=== PATIENT | male | born 1965 | race Caucasian/White ===

== ENCOUNTER 2017-10-04 11:10 | Inpatient (IN) | payer SELFPAY ==
[2017-10-04] VITALS (43 sets, daily range): BP systolic 171–276; BP diastolic 74–158; PULSE 74–128; RESP 3–40; TEMP 98.2–98.6; O2SAT 94–97
[~2017-10-04] VITALS: Ht 180.3 cm; Wt 155.5 kg
[2017-10-04 11:58] LABS: AUTOMATED NEUTROPHIL # 6.8 TH/MM3 (1.8-7.7); BASOPHIL # 0.3 TH/MM3 (0-0.2); BASOPHIL % 3.3 % (0.0-2.0); EOSINOPHIL # 0.1 TH/MM3 (0-0.4); EOSINOPHIL % 1.4 % (0.0-4.0); HEMATOCRIT 49.5 % (39.0-51.0); HEMOGLOBIN 16.2 GM/DL (13.0-17.0); LYMPH % 23.2 % (9.0-44.0); LYMPHOCYTE # 2.4 TH/MM3 (1.0-4.8); MEAN CELL VOLUME 85.8 FL (80.0-100.0); MEAN CORPUSCULAR HEMOGLOBIN 28.1 PG (27.0-34.0); MEAN CORPUSCULAR HGB CONC 32.8 % (32.0-36.0); MEAN PLATELET VOLUME 10.2 FL (7.0-11.0); MONO % 7.1 % (0.0-8.0); MONOCYTE # 0.7 TH/MM3 (0-0.9); PLATELET COUNT 232 TH/MM3 (150-450); RED BLOOD COUNT 5.78 MIL/MM3 (4.50-5.90); RED CELL DISTRIBUTION WIDTH 13.3 % (11.6-17.2); WHITE BLOOD COUNT 10.3 TH/MM3 (4.0-11.0)
[2017-10-04] MEDS ORDERED: SODIUM CHLORIDE 0.9% FLUSH 10 ML FLUSH IVF PRN (12:00)
[2017-10-04] MEDS ORDERED: niCARdipine INJ 25 MG in SODIUM CHLOR 0.9% 250 ML INJ 250 ML IV ONE (12:00)
[2017-10-04 12:11] LABS: CHLORIDE 103 MEQ/L (98-107); SODIUM (NA) 139 MEQ/L (136-145)
[2017-10-04 12:14] LABS: CALCIUM 9.1 MG/DL (8.5-10.1)
[2017-10-04 12:15] LABS: BICARBONATE 27.8 MEQ/L (21.0-32.0); BLOOD UREA NITROGEN 17 MG/DL (7-18); GLUCOSE,RANDOM 99 MG/DL (74-106); PROTHROMBIN TIME - PATIENT 10.1 SEC (9.8-11.6)
[2017-10-04 12:18] LABS: ALT (GPT) 28 U/L (12-78); AST (GOT) 23 U/L (15-37); GLOMERULAR FILTRATION RATE 79 ML/MIN (>89)
[2017-10-04 12:19] LABS: TOTAL BILIRUBIN ADULT 0.5 MG/DL (0.2-1.0); TOTAL PROTEIN 8.8 GM/DL (6.4-8.2)
[2017-10-04 12:21] LABS: ALKALINE PHOSPHATASE 80 U/L (45-117)
--- NOTE | 2017-10-04 12:59 | RADRPT ---
EXAM DATE: 10/04/2017 12:53 PM EDT AGE/SEX: 52 years / Male INDICATIONS: Difficulty speaking, now resolved. CLINICAL DATA: This is the patient's initial encounter. Patient reports that signs and symptoms have been present for 1 day and indicates a pain score of 0/10. MEDICAL/SURGICAL HISTORY: None. None. RADIATION DOSE: 60.70 CTDI (mGy) COMPARISON: No prior exams available for comparison. TECHNIQUE: CT of the head without contrast. Using automated exposure control and adjustment of the mA and/or kV according to patient size, radiation dose was kept as low as reasonably achievable to ob tain optimal diagnostic quality images. FINDINGS: Cerebrum: There is mild generalized atrophy and ventricles are normal given the degree of atrophy. M ild periventricular white matter change is present. There is an old lacunar in the region of the righ t caudate. No midline shift, mass lesion, hemorrhage or acute infarction. No extraaxial fluid collec tions are seen. Posterior Fossa: The cerebellum and brainstem demonstrate no acute abnormality. The 4th ventricle is midline. The cerebellopontine angle is within normal limits. Extracranial: The visualized sinuses are clear. Skull: The calvaria is intact. No skull fracture. CONCLUSION: 1. No acute intracranial abnormality is identified. 2. Chronic findings include mild atrophy and periventricular white matter change characteristic of c hronic microvascular ischemia. Additionally, there is an old lacune in the region of the right caudat e. Electronically signed by: Jassi Gallo MD 10/04/2017 12:57 PM EDT
[2017-10-04] MEDS ORDERED: MAGNESIUM HYDROXIDE SUSP 30 ML CUP PO PRN (13:15)
[2017-10-04] MEDS ORDERED: ONDANSETRON HCL 4 MG/2 ML VIAL IV PUSH PRN (13:15)
[2017-10-04] MEDS ORDERED: CHLORHEXIDINE GLUCONATE 2 % 1 PACK (2 CLOTHS) TOP PRN (13:15)
[2017-10-04] MEDS ORDERED: NURSING INFORMATION XX SCH (13:15)
[2017-10-04] MEDS ORDERED: LACTULOSE SYRUP 20 GM/30 ML CUP PO PRN (13:15)
[2017-10-04] MEDS ORDERED: BISACODYL 10 MG SUPP RECTAL PRN (13:15)
[2017-10-04] MEDS ORDERED: RESP: ALBUTEROL 2.5 MG/3 ML NEB (PRN) INH (13:15)
[2017-10-04] MEDS ORDERED: ACETAMINOPHEN 325 MG TAB PO PRN (13:15)
[2017-10-04] MEDS ORDERED: SODIUM CHLORIDE 0.9% FLUSH 10 ML FLUSH IV FLUSH PRN ×2 (13:15→13:30)
[2017-10-04] MEDS ORDERED: SENNOSIDES 8.6 MG TAB PO PRN (13:15)
--- NOTE | 2017-10-04 13:15 | PD ---
HPI Chief Complaint: Neuro Symptoms/ Deficits Time Seen by Provider: 11:35 Travel History International Travel<30 days: No Contact w/Intl Traveler<30days: No Traveled to known affect area: No History of Present Illness HPI Is a 58-year-old male presents to the emergency department because he states that approximately 1010 this morning he started feeling funny and states that he had trouble pronouncing words that started with a CORA. He states he felt like his tongue could not get to the front of his teeth. Denies any trouble with aphasia, or word finding. No numbness tingling weakness or other symptoms. Otherwise had been feeling generally well and healthy. No history of TIA in the past. Is treated for high blood pressure. Symptoms resolved shortly after onset. No other complaints. History Past Medical History Narrative Medical Hypertension Asthma Tetanus Vaccination: > 5 Years Influenza Vaccination: No Past Surgical History Surgical History: No Previous Surgery Social History Alcohol Use: No Tobacco Use: No Allergies-Medications (Allergen,Severity, Reaction): Coded Allergies: No Known Allergies (Unverified , 10/04/17) Reported Meds & Prescriptions Reported Meds & Active Scripts Active No Active Prescriptions or Reported Medications Review of Systems Except as stated in HPI: all other systems reviewed are Neg Physical Exam Narrative GENERAL: Well-appearing 52-year-old man, no acute distress. SKIN: Focused skin assessment warm/dry. HEAD: Atraumatic. Normocephalic. EYES: Pupils equal and round. No scleral icterus. No injection or drainage. ENT: No nasal bleeding or discharge. Mucous membranes pink and moist. NECK: Trachea midline. No JVD. CARDIOVASCULAR: Regular rate and rhythm. No murmur appreciated. RESPIRATORY: No accessory muscle use. Clear to auscultation. Breath sounds equal bilaterally. GASTROINTESTINAL: Abdomen soft, non-tender, nondistended. Hepatic and splenic margins not palpable. MUSCULOSKELETAL: No obvious deformities. No clubbing. No cyanosis. No edema. NEUROLOGICAL: Awake and alert. Clear nerves II through XII are intact. Tongue strength appears normal when I had him push it into his cheek on each side. It is midline with protrusion. I do not appreciate any dysarthria or aphasia on my exam. Patient subjectively states he felt like the symptoms returned when he got to the emergency department. Patient does have a little bit of visual field loss in his left eye only in the nasal superior quadrant. 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 Strength is full and equal upper and lower extremities. No pronator drift or lower extremity drift. Sensation is intact to light touch. PSYCHIATRIC: Appropriate mood and affect; insight and judgment normal. Data Data Last Documented VS Vital Signs Date Time Temp Pulse Resp B/P (MAP) Pulse Ox O2 Delivery O2 Flow Rate FiO2 10/04/17 12:45 249/111 (157) 10/04/17 12:30 110 18 97 10/04/17 11:49 Room Air 10/04/17 11:26 98.2 Orders Orders Electrocardiogram (10/04/17 11:46) Prothrombin Time / Inr (Pt) (10/04/17 11:46) Act Partial Throm Time (Ptt) (10/04/17 11:46) Complete Blood Count With Diff (10/04/17 11:46) Comprehensive Metabolic Panel (10/04/17 11:46) Ct Brain W/O Iv Contrast(Rout) (10/04/17 11:46) Ecg Monitoring (10/04/17 11:46) Iv Access Insert/Monitor (10/04/17 11:46) Oximetry (10/04/17 11:46) Sodium Chloride 0.9% Flush (Ns Flush) (10/04/17 12:00) Nicardipine Inj (Cardene Inj) (10/04/17 12:00) Labs Laboratory Tests Test 10/04/17 11:50 White Blood Count 10.3 TH/MM3 Red Blood Count 5.78 MIL/MM3 Hemoglobin 16.2 GM/DL Hematocrit 49.5 % Mean Corpuscular Volume 85.8 FL Mean Corpuscular Hemoglobin 28.1 PG Mean Corpuscular Hemoglobin Concent 32.8 % Red Cell Distribution Width 13.3 % Platelet Count 232 TH/MM3 Mean Platelet Volume 10.2 FL Neutrophils (%) (Auto) 65.0 % Lymphocytes (%) (Auto) 23.2 % Monocytes (%) (Auto) 7.1 % Eosinophils (%) (Auto) 1.4 % Basophils (%) (Auto) 3.3 % Neutrophils # (Auto) 6.8 TH/MM3 Lymphocytes # (Auto) 2.4 TH/MM3 Monocytes # (Auto) 0.7 TH/MM3 Eosinophils # (Auto) 0.1 TH/MM3 Basophils # (Auto) 0.3 TH/MM3 CBC Comment DIFF FINAL Differential Comment Prothrombin Time 10.1 SEC Prothromb Time International Ratio 1.0 RATIO Activated Partial Thromboplast Time 28.1 SEC Blood Urea Nitrogen 17 MG/DL Creatinine 1.00 MG/DL Random Glucose 99 MG/DL Total Protein 8.8 GM/DL Albumin 4.0 GM/DL Calcium Level 9.1 MG/DL Alkaline Phosphatase 80 U/L Aspartate Amino Transf (AST/SGOT) 23 U/L Alanine Aminotransferase (ALT/SGPT) 28 U/L Total Bilirubin 0.5 MG/DL Sodium Level 139 MEQ/L Potassium Level 3.8 MEQ/L Chloride Level 103 MEQ/L Carbon Dioxide Level 27.8 MEQ/L Anion Gap 8 MEQ/L Estimat Glomerular Filtration Rate 79 ML/MIN [facility] Medical Decision Making Medical Screen Exam Complete: Yes Emergency Medical Condition: Yes Interpretation(s) My review of EKG: Sinus tachycardia rate of 109, leftward axis, right bundle branch block, no acute ischemia. LABS: CBC is unremarkable CMP is unremarkable. Coags are unremarkable. Head CT no acute intracranial abnormality. Chronic mild atrophy and periventricular white matter changes. Old lacunar in the right caudate. Differential Diagnosis Hypertensive encephalopathy, progress, bleed, stroke, TIA, other Narrative Course Medical decision making by the 52-year-old male presents emerged department what appears to be hypertensive crisis. Some intermittent subjective speech changes however I do not hear any abnormalities with his articulation or aphasia or other neurologic symptoms. NIH 0 so was not called as a stroke alert. We did get a CT scan of his head and started him on nicardipine. His EKG does not show any ischemic changes. We will plan on admission to the ICU for hypertensive emergency. Physician Communication Physician Communication Spoke with Dr. Child, with critical care medicine, will admit patient. Diagnosis Primary Impression: Hypertensive emergency Admitting Information Admitting Physician Requests: Admit Scripts No Active Prescriptions or Reported Meds Wu Peterson MD Oct 04, 2017 13:15
[2017-10-04] MEDS ORDERED: GLUCAGON 1 MG/ML VIAL OTHER PRN ×2 (13:30)
[2017-10-04] MEDS ORDERED: SODIUM PHOSPHATE INJ 30 MMOL in SODIUM CHLOR 0.9% 250 ML INJ 240 ML IV PRN (13:30)
[2017-10-04] MEDS ORDERED: MAGNESIUM SULFATE INJ 2 GM in SODIUM CHLORIDE 0.9% INJ 96 ML IV PRN (13:30)
[2017-10-04] MEDS ORDERED: POTASSIUM CHLORIDE 25 MEQ EFFERVESCENT TAB PO PRN (13:30)
[2017-10-04] MEDS ORDERED: POTASSIUM PHOSPHATE INJ 30 MMOL in SODIUM CHLOR 0.9% 250 ML INJ 250 ML IV PRN (13:30)
[2017-10-04] MEDS ORDERED: DEXTROSE 50% IN WATER 50 ML VIAL(D50) IV PUSH PRN (13:30)
[2017-10-04] MEDS ORDERED: MAGNESIUM SULFATE INJ 4 GM in SODIUM CHLORIDE 0.9% INJ 92 ML IV PRN (13:30)
[2017-10-04] MEDS ORDERED: POTASSIUM PHOSPHATE MONOBASIC 500 MG TAB PO PRN (13:30)
[2017-10-04] MEDS ORDERED: MAGNESIUM OXIDE 400 MG TAB PO PRN (13:30)
[2017-10-04] MEDS ORDERED: POTASSIUM CHLOR 40 MEQ PREMIX 100 ML IV PRN ×2 (13:30)
[2017-10-04] MEDS ORDERED: POTASSIUM CHLOR 20 MEQ PREMIX 100 ML IV PRN ×2 (13:30)
[2017-10-04] MEDS ORDERED: POTASSIUM PHOSPHATE MONOBASIC 500 MG TAB PO/TUBE PRN (13:30)
--- NOTE | 2017-10-04 14:09 | HHI.HP ---
[facility] Service Critical Care Medicine Primary Care Physician No Primary Care Physician Admission Diagnosis Hypertensive emergency Diagnosis: (1) Hypertensive emergency Diagnosis: Principal (2) Cerebrovascular accident, old Diagnosis: Secondary (3) Right bundle branch block Diagnosis: Secondary (4) Asthma, mild intermittent (5) ADDY on CPAP Diagnosis: Principal (6) BMI 45.0-49.9, adult Diagnosis: Principal Chief Complaint: Dysarthria, facial droop Travel History International Travel<30 Days: No Contact w/Intl Traveler <30 Da: No Traveled to Known Affected Are: No History of Present Illness This is a 52-year-old male. The admission 10/04/2017. Past medical history includes untreated hypertension, elevated BMI greater than 48, obstructive sleep apnea on CPAP, mild intermittent asthma. Patient has not seen a doctor/physicist 2005. He states his blood pressure last few checks has been quite elevated with diastolic blood pressure in the 120s. His CPAP machine is over 20 years old. He presents to [facility] with the following story. At approximately 1010, [place] had acute onset of dysarthria. He had difficulty pronouncing words. No focal weakness including headache, vision changes, focal weakness or neuropathy. Denies any recent head trauma or surgeries. CT the brain revealed old right caudate lacunar CVA. Baseline laboratories were essentially within normal limits including BMP and CBC. Troponin is currently pending. EKG reveals sinus tachycardia rate of 110 with a right bundle branch block and a left anterior fascicular block. Troponin is currently pending NIH score was between a 0-1 throughout his ED visit Review of Systems Constitutional: COMPLAINS OF: Weight gain, DENIES: Fatigue, Fever, Weight loss Endocrine: DENIES: Polydipsia, Polyuria Eyes: DENIES: Blurred vision Ears, nose, mouth, throat: DENIES: Hearing loss, Odynophagia Respiratory: DENIES: Apneas, Shortness of breath Cardiovascular: DENIES: Chest pain, Lower Extremity Edema Gastrointestinal: DENIES: Abdominal pain, Nausea, Vomiting Musculoskeletal: DENIES: Joint pain, Back pain Integumentary: DENIES: Abnormal pigmentation Hematologic/lymphatic: DENIES: Bruising Immunologic/allergic: DENIES: Eczema Neurologic: DENIES: Abnormal gait Psychiatric: COMPLAINS OF: Anxiety, DENIES: Confusion, Depression Past Family Social History Allergies: Coded Allergies: No Known Allergies (Unverified , 6/17/18) Past Medical History Essential hypertension Elevated BMI Obstructive sleep apnea on CPAP Mild intermittent asthma Past Surgical History None Reported Medications None Active Ordered Medications Reviewed in EMR Family History Paternal grandmother and grandfather with myocardial infarction. Father with coronary disease status post stent. Mother in good health. Social History Denies tobacco, alcohol or illicit drug use Physical Exam Vital Signs Vital Signs Date Time Temp Pulse Resp B/P (MAP) Pulse Ox O2 Delivery O2 Flow Rate FiO2 10/04/17 13:53 185/94 (124) 10/04/17 13:36 120 18 193/87 (122) 96 Room Air 10/04/17 13:15 118 16 203/95 (131) 95 Room Air 10/04/17 12:45 249/111 (157) 10/04/17 12:30 110 18 249/103 (151) 97 10/04/17 12:15 263/123 (169) 10/04/17 12:02 105 276/149 10/04/17 11:49 97 Room Air 10/04/17 11:33 (192) 10/04/17 11:26 Room Air 10/04/17 11:26 98.2 114 18 276/149 (191) 97 Room Air 260/158 (192) Physical Exam GENERAL: 52-year-old male currently resting in bed in no acute distress SKIN: Warm and dry. No rash HEAD: Atraumatic. Normocephalic. EYES: Pupils equal and round about 3 mm bilaterally and reactive. No scleral icterus. No injection or drainage. ENT: No nasal bleeding or discharge. Mucous membranes pink and moist. NECK: Trachea midline. No JVD. CARDIOVASCULAR: Tachycardic, RR. S1, S2. No S4. Without murmur RESPIRATORY: Clear to auscultation. Breath sounds equal bilaterally. GASTROINTESTINAL: Abdomen soft, non-tender, obese. Hypoactive bowel sounds appreciated MUSCULOSKELETAL: Extremities with trace bilateral lower extremity edema. No obvious deformities. NEUROLOGICAL: Awake and alert. Possibly slight left-sided facial droop. Positive dysarthria. Strength is equal and symmetric bilaterally 5+ out of 5 bilateral upper and lower extremities. Normal sensation bilateral upper lower extremity. DTRs equal symmetric. Gait was not assessed. No dysdiadochokinesis. No pronator drift. Laboratory Laboratory Tests Test 10/04/17 11:50 10/04/17 13:45 White Blood Count 10.3 Red Blood Count 5.78 Hemoglobin 16.2 Hematocrit 49.5 Mean Corpuscular Volume 85.8 Mean Corpuscular Hemoglobin 28.1 Mean Corpuscular Hemoglobin Concent 32.8 Red Cell Distribution Width 13.3 Platelet Count 232 Mean Platelet Volume 10.2 Neutrophils (%) (Auto) 65.0 Lymphocytes (%) (Auto) 23.2 Monocytes (%) (Auto) 7.1 Eosinophils (%) (Auto) 1.4 Basophils (%) (Auto) 3.3 Neutrophils # (Auto) 6.8 Lymphocytes # (Auto) 2.4 Monocytes # (Auto) 0.7 Eosinophils # (Auto) 0.1 Basophils # (Auto) 0.3 CBC Comment DIFF FINAL Differential Comment Prothrombin Time 10.1 Prothromb Time International Ratio 1.0 Activated Partial Thromboplast Time 28.1 Blood Urea Nitrogen 17 Creatinine 1.00 Random Glucose 99 Total Protein 8.8 Albumin 4.0 Calcium Level 9.1 Alkaline Phosphatase 80 Aspartate Amino Transf (AST/SGOT) 23 Alanine Aminotransferase (ALT/SGPT) 28 Total Bilirubin 0.5 Sodium Level 139 Potassium Level 3.8 Chloride Level 103 Carbon Dioxide Level 27.8 Anion Gap 8 Estimat Glomerular Filtration Rate 79 Result Diagram: 10/04/17 1150 10/04/17 1150 Imaging Last Impressions Head CT 10/04/17 1146 Signed Impressions: CONCLUSION: 1. No acute intracranial abnormality is identified. 2. Chronic findings include mild atrophy and periventricular white matter evans ge characteristic of chronic microvascular ischemia. Additionally, there is an old lacune in the region of the right caudate. Septic Shock Reassessment Septic shock perfusion: reassessment completed Caprini VTE Risk Assessment Caprini VTE Risk Assessment: Mod/High Risk (score >= 2) VTE Pharm Contraindication: Documented Caprini Risk Assessment Model Point Value = 1 Point Value = 2 Point Value = 3 Point Value = 5 Age 41-60 Minor surgery BMI > 25 kg/m2 Swollen legs Varicose veins or History of unexplained or recurrent spontaneous Oral contraceptives or hormone replacement Sepsis (< 1 month) Serious lung disease, including pneumonia (< 1 month) Abnormal pulmonary function Acute myocardial infarction Congestive heart failure (< 1 month) History of inflammatory bowel disease Medical patient at bed rest Age 61-74 Arthroscopic surgery Major open surgery (> 45 min) Laparoscopic surgery (> 45 min) Malignancy Confined to bed (> 72 hours) Immobilizing plaster cast Central venous access Age >= 75 History of VTE Family history of VTE Factor V Leiden Prothrombin [id number] Lupus anticoagulant Anticardiolipin antibodies Elevated serum homocysteine Heparin-induced thrombocytopenia Other congenital or acquired thrombophilia Stroke (< 1 month) Elective arthroplasty Hip, pelvis, or leg fracture Acute spinal cord injury (< 1 month) Prophylaxis Regimen Total Risk Factor Score Risk Level Prophylaxis Regimen 0-1 Low Early ambulation 2 Moderate Order ONE of the following: *Sequential Compression Device (SCD) *Heparin 5000 units SQ BID 3-4 Higher Order ONE of the following medications: *Heparin 5000 units SQ TID *Enoxaparin/Lovenox 40 mg SQ daily (WT < 150 kg, CrCl > 30 mL/min) *Enoxaparin/Lovenox 30 mg SQ daily (WT < 150 kg, CrCl > 10-29 mL/min) *Enoxaparin/Lovenox 30 mg SQ BID (WT < 150 kg, CrCl > 30 mL/min) AND/OR *Sequential Compression Device (SCD) 5 or more Highest Order ONE of the following medications: *Heparin 5000 units SQ TID (Preferred with Epidurals) *Enoxaparin/Lovenox 40 mg SQ daily (WT < 150 kg, CrCl > 30 mL/min) *Enoxaparin/Lovenox 30 mg SQ daily (WT < 150 kg, CrCl > 10-29 mL/min) *Enoxaparin/Lovenox 30 mg SQ BID (WT < 150 kg, CrCl > 30 mL/min) AND *Sequential Compression Device (SCD) Assessment and Plan Assessment and Plan Neuro/Psych: Dysarthria with left facial droop Old right caudate lacunar CVA CT brain admission revealed old right lacunar infarct. Periventricular white matter changes/mild. Discussed with neurology see below. Given benefits and risks patient is currently wishing not to receive alteplase. MRI/A brain and carotid Dopplers ordered. Start aspirin 81 mg by mouth daily Lipid panel/hemoglobin A1c ordered Echocardiogram ordered see below CV: Hypertensive emergency Right bundle branch block Sinus tachycardia Currently on nicardipine drip 7.5 mg an hour to maintain his systolic blood pressure around 180. As needed labetalol/Nitropaste Of note, patient states he had a negative stress echocardiogram 20 years ago and his workup for gastroesophageal reflux disease EKG on admission revealed a sinus tachycardia rate in the 1 teens. Right bundle branch block. [id number]. Left anterior fascicular block. Troponin currently pending. Currently denies chest pain 2D echocardiogram has been ordered Resp: Obstructive sleep apnea Nasal cannula to maintain saturations greater than or equal to 92% Incentive spirometry while awake Patient with option to home CPAP machine. Otherwise will use hours tonight Follow up on chest x-ray GI: History of gastroesophageal reflux disease Advance diet as tolerated Pantoprazole 40 mg daily for GI prophylaxis Docusate sodium/senna 1 tablet twice daily for bowel regimen : No indication for Welch catheter Endo: Sliding scale insulin with Novulin R with Accu-Cheks before meals/at bedtime to maintain euglycemia/low regimen Check hemoglobin A1c and TSH Renal: Creatinine essentially within normal limits with GFR of 79. Monitor urine output Accurate I's and O's Heme: CBC essentially within normal limits along with coags. Recheck in a.m. ID: Monitor for signs of hematology infection MSK: PT/OT evaluate and treat FEN: Currently on normal saline at 84 cc an hour Replace electrolytes as clinically indicated per ICU electrolyte protocol Access -Utilize peripheral IV. Central line if indicated Prophylaxis -GI -pantoprazole -DVT -SCD/holding pharmacological a.m. with tighter blood pressure control in case alteplase as indicated Level 3 admission Code Status Full code Discussed Condition With Patient. Dr. Peterson/ED physician. Dr. Conde/neurology. Care plan discussed and all questions answered. Discussed with neurologist. Left facial droop could be caused by the right caudate exacerbation with hypertension. Note this appears to be very slight but friend at bedside convinced there is change. Dysarthria is new and appears to be waxing and waning. 6% chance of bleeding with TPA. Benefits and risks discussed with patient. At the present time, he wishes not to pursue alteplase at the present time due to risk of bleeding. I will complete MRI/A of brain along with carotid ultrasound. Keep systolic blood pressure around 180. Admit to the ICU. Problem Qualifiers (1) Asthma, mild intermittent: Qualified Codes: J45.20 - Mild intermittent asthma, uncomplicated Lasha Romero MD Oct 04, 2017 14:09
[2017-10-04] MEDS ORDERED: NITROGLYCERIN 2% OINT 1 GM PACKET TOPICAL PRN (14:15)
[2017-10-04] MEDS ORDERED: MORPHINE SULFATE 2 MG/ML SYRINGE IV PUSH PRN (14:45)
[2017-10-04] MEDS ORDERED: ACETAMINOPHEN/HYDROcodone 325 MG/5 MG TAB PO PRN (15:00)
[2017-10-04] MEDS: RESP: ALBUTEROL 2.5 MG/IPRATROPIUM 0.5 MG NEB (SCH) INH ×3 (15:24→23:20)
--- NOTE | 2017-10-04 15:59 | RADRPT ---
EXAM DATE: 10/04/2017 3:53 PM EDT AGE/SEX: 52 years / Male INDICATIONS: Respiratory failure and difficulty speaking. CLINICAL DATA: This is the patient's initial encounter. Patient reports that signs and symptoms have been present for 1 day and indicates a pain score of 0/10. MEDICAL/SURGICAL HISTORY: Asthma. Hyperparathyroidism. None. COMPARISON: No prior exams available for comparison. FINDINGS: A single AP view of the chest demonstrates the lungs to be symmetrically aerated without evidence of mass, infiltrate or effusion. The heart is upper limits normal size for AP portable technique. The ce ntral bronchopulmonary markings are well delineated.. Osseous structures are intact. CONCLUSION: The lungs are clear. Electronically signed by: Nato Harvey MD 10/04/2017 3:58 PM EDT
[2017-10-04] MEDS: SODIUM CHLOR 0.9% 1000 ML INJ 1,000 ML IV SCH (16:06)
[2017-10-04] MEDS ORDERED: INSULIN NovoLIN REGULAR SUPPLEMENTAL SCALE SQ SCH (17:00)
[2017-10-04] MEDS: INSULIN ASPART SUPPLEMENTAL SCALE SQ SCH ×2 (17:00→21:00)
[2017-10-04] MEDS: niCARdipine INJ 25 MG in SODIUM CHLOR 0.9% 250 ML INJ 250 ML IV PRN ×3 (17:23→23:04)
[2017-10-04] MEDS: ARTIFICIAL TEARS OPTH SOLN 15 ML BTL EACH EYE SCH (18:00)
[2017-10-04] MEDS: ATORVASTATIN 10 MG TAB PO SCH (19:56)
[2017-10-04] MEDS: DOCUSATE SODIUM 50 MG/SENNA 8.6 MG TAB PO SCH (19:56)
[2017-10-04] MEDS: SODIUM CHLORIDE 0.9% FLUSH 10 ML FLUSH IV FLUSH SCH (19:57)
[2017-10-04] MEDS: LABETALOL HCL 100 MG/20 ML VIAL IV PUSH PRN (20:07)
[2017-10-04] MEDS ORDERED: SODIUM CHLORIDE 0.9% FLUSH 10 ML FLUSH IV FLUSH SCH (21:00)
[2017-10-04] MEDS ORDERED: ASPIRIN 81 MG CHEW TAB CHEW STA (21:02)
[2017-10-04] MEDS ORDERED: CHLORHEXIDINE GLUCONATE 2 % 1 PACK (2 CLOTHS)(extra cloths) TOPICAL PRN (21:30)
[2017-10-05] VITALS (30 sets, daily range): BP systolic 160–230; BP diastolic 73–107; PULSE 56–100; RESP 7–42; TEMP 97.7–98.9; O2SAT 94–98
[2017-10-05] MEDS: CHLORHEXIDINE GLUCONATE 2 % 1 PACK (2 CLOTHS)(taper/protocol) TOPICAL SCH (04:00)
[2017-10-05] MEDS ORDERED: CHLORHEXIDINE GLUCONATE 2 % 1 PACK (2 CLOTHS) TOP SCH (04:00)
[2017-10-05] MEDS: SODIUM CHLOR 0.9% 1000 ML INJ 1,000 ML IV SCH ×3 (04:14→20:54)
[2017-10-05] MEDS: RESP: ALBUTEROL 2.5 MG/IPRATROPIUM 0.5 MG NEB (SCH) INH ×6 (04:41→23:15)
[2017-10-05 05:11] LABS: AUTOMATED NEUTROPHIL # 8.2 TH/MM3 (1.8-7.7); BASOPHIL # 0.1 TH/MM3 (0-0.2); BASOPHIL % 0.6 % (0.0-2.0); EOSINOPHIL # 0.1 TH/MM3 (0-0.4); EOSINOPHIL % 0.6 % (0.0-4.0); HEMATOCRIT 43.2 % (39.0-51.0); HEMOGLOBIN 14.2 GM/DL (13.0-17.0); LYMPH % 21.6 % (9.0-44.0); LYMPHOCYTE # 2.6 TH/MM3 (1.0-4.8); MEAN CELL VOLUME 86.2 FL (80.0-100.0); MEAN CORPUSCULAR HEMOGLOBIN 28.3 PG (27.0-34.0); MEAN CORPUSCULAR HGB CONC 32.8 % (32.0-36.0); MEAN PLATELET VOLUME 9.6 FL (7.0-11.0); MONO % 7.8 % (0.0-8.0); MONOCYTE # 0.9 TH/MM3 (0-0.9); NEUT % 69.4 % (16.0-70.0); PLATELET COUNT 206 TH/MM3 (150-450); RED BLOOD COUNT 5.02 MIL/MM3 (4.50-5.90); RED CELL DISTRIBUTION WIDTH 13.1 % (11.6-17.2); WHITE BLOOD COUNT 11.9 TH/MM3 (4.0-11.0)
[2017-10-05 05:20] LABS: CHLORIDE 107 MEQ/L (98-107); SODIUM (NA) 142 MEQ/L (136-145)
[2017-10-05 06:01] LABS: INTERNATIONAL NORMALIZED RATIO 1.1 RATIO; PROTHROMBIN TIME - PATIENT 10.7 SEC (9.8-11.6)
[2017-10-05 06:24] LABS: ALBUMIN 3.3 GM/DL (3.4-5.0); ALKALINE PHOSPHATASE 64 U/L (45-117); ALT (GPT) 24 U/L (12-78); AST (GOT) 40 U/L (15-37); BICARBONATE 25.3 MEQ/L (21.0-32.0); BLOOD UREA NITROGEN 14 MG/DL (7-18); CREATININE 0.86 MG/DL (0.60-1.30); GLOMERULAR FILTRATION RATE 94 ML/MIN (>89); GLUCOSE,RANDOM 117 MG/DL (74-106); MAGNESIUM 2.2 MG/DL (1.5-2.5); PHOSPHORUS 3.8 MG/DL (2.5-4.9); TOTAL BILIRUBIN ADULT 0.6 MG/DL (0.2-1.0); TOTAL PROTEIN 7.1 GM/DL (6.4-8.2)
--- NOTE | 2017-10-05 06:24 | HHI.CCPN ---
Subjective Remarks/Hospital Course This is a 52-year-old male. The admission 10/04/2017. Past medical history includes untreated hypertension, elevated BMI greater than 48, obstructive sleep apnea on CPAP, mild intermittent asthma. Patient has not seen a doctor/physicist 2005. He states his blood pressure last few checks has been quite elevated with diastolic blood pressure in the 120s. His CPAP machine is over 20 years old. He presents to [facility] with the following story. At approximately 1010, [place] had acute onset of dysarthria. He had difficulty pronouncing words. No focal weakness including headache, vision changes, focal weakness or neuropathy. Denies any recent head trauma or surgeries. CT the brain revealed old right caudate lacunar CVA. Baseline laboratories were essentially within normal limits including BMP and CBC. Troponin is currently pending. EKG reveals sinus tachycardia rate of 110 with a right bundle branch block and a left anterior fascicular block. Troponin is currently pending NIH score was between a 0-1 throughout his ED visit SUBJECTIVE: 10/05: Resting comfortably in bed. Continues to have tongue deviation, slight facial droop and dysarthria. Noted troponin I 0.4 late last night. Repeat pending this a.m. Denies chest pain. Off nicardipine drip. Objective Vital Signs Date Time Temp Pulse Resp B/P (MAP) Pulse Ox O2 Delivery O2 Flow Rate FiO2 10/05/17 06:00 70 10/05/17 06:00 19 197/91 (126) 10/05/17 04:00 98.8 10/05/17 00:00 94 10/04/17 20:17 21 10/04/17 15:00 Room Air Intake and Output 10/05/17 10/05/17 10/06/17 08:00 16:00 00:00 Intake Total 200 ml Output Total 400 ml Balance -200 ml Result Diagram: 10/05/17 0430 10/05/17 0430 Imaging Last Impressions Head CT 10/04/17 1146 Signed Impressions: CONCLUSION: 1. No acute intracranial abnormality is identified. 2. Chronic findings include mild atrophy and periventricular white matter evans ge characteristic of chronic microvascular ischemia. Additionally, there is an old lacune in the region of the right caudate. Chest X-Ray 10/04/17 0000 Signed Impressions: CONCLUSION: The lungs are clear. Objective Remarks GENERAL: 52-year-old male currently resting in bed in no acute distress SKIN: Warm and dry. No rash HEAD: Atraumatic. Normocephalic. EYES: Pupils equal and round about 3 mm bilaterally and reactive. No scleral icterus. No injection or drainage. ENT: No nasal bleeding or discharge. Mucous membranes pink and moist. NECK: Trachea midline. No JVD. CARDIOVASCULAR: Tachycardic, RR. S1, S2. No S4. Without murmur RESPIRATORY: Clear to auscultation. Breath sounds equal bilaterally. GASTROINTESTINAL: Abdomen soft, non-tender, obese. Hypoactive bowel sounds appreciated MUSCULOSKELETAL: Extremities with trace bilateral lower extremity edema. No obvious deformities. NEUROLOGICAL: Awake and alert. Tongue deviation to the right new. Facial droop. Right. Positive dysarthria but improved. Strength is equal and symmetric bilaterally 5+ out of 5 bilateral upper and lower extremities. Normal sensation bilateral upper lower extremity. DTRs equal symmetric. Gait was not assessed. No dysdiadochokinesis. No pronator drift. 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 Periventricular white matter changes/mild. Discussed with neurology see below. Given benefits and risks patient is currently wishing not to receive alteplase. MRI/A brain and carotid Dopplers ordered. Carotid Dopplers have been completed but not read. MRI/A brain still pending Start aspirin 81 mg by mouth daily Lipid panel/hemoglobin A1c ordered Echocardiogram ordered see below CV: Hypertensive emergency Right bundle branch block Sinus tachycardia Elevated troponin Start on metoprolol tartrate 25 mg twice daily and lisinopril 5 mg daily Aspirin 81 mg p.o. daily Atorvastatin 10 mg by mouth daily -lipid panel pending Off nicardipine drip. As needed labetalol/Nitropaste and nicardipine drip ordered Of note, patient states he had a negative stress echocardiogram 20 years ago and his workup for gastroesophageal reflux disease EKG on admission revealed a sinus tachycardia rate in the 1 teens. Right bundle branch block. [id number]. Left anterior fascicular block. Troponin initially 0.07 but now 1.4. A.m. pending. Currently denies chest pain. Repeat EKG is pending 2D echocardiogram has been ordered Cardiology consultation Resp: Obstructive sleep apnea Nasal cannula to maintain saturations greater than or equal to 92% Incentive spirometry while awake Patient with option to home CPAP machine. Otherwise will use hours tonight Follow up on chest x-ray 10/04 revealed no acute intracranial findings GI: History of gastroesophageal reflux disease Hypoalbuminemia Advance diet as tolerated Pantoprazole 40 mg daily for GI prophylaxis Docusate sodium/senna 1 tablet twice daily for bowel regimen : No indication for Welch catheter Endo: Hyperglygemia Sliding scale insulin with Novulin R with Accu-Cheks before meals/at bedtime to maintain euglycemia/low regimen Check hemoglobin A1c and TSH Renal: Creatinine essentially within normal limits with GFR of 79. Monitor urine output Accurate I's and O's Heme: Leukocytosis CBC essentially within normal limits along with coags. Recheck in a.m. ID: Monitor for signs of hematology infection MSK: PT/OT evaluate and treat FEN: Hypokalemia HypoCa+ Currently on normal saline at 84 cc an hour Replace electrolytes as clinically indicated per ICU electrolyte protocol Access -Utilize peripheral IV. Central line if indicated Prophylaxis -GI -pantoprazole -DVT -SCD/heparin subcu Level 2 follow-up Patient stable from critical care medicine standpoint. Assign care to hospitalist in AM 10/06. Lasha Romero MD Oct 05, 2017 06:24
[2017-10-05] MEDS ORDERED: niCARdipine INJ 25 MG in SODIUM CHLOR 0.9% 250 ML INJ 250 ML IV PRN (06:45)
[2017-10-05] MEDS ORDERED: PILL SPLITTER OTHER PRN (06:45)
[2017-10-05] MEDS ORDERED: POTASSIUM CHLORIDE 10 MEQ CONTROLLED RELEASE TAB PO ONE (07:00)
[2017-10-05] MEDS: INSULIN ASPART SUPPLEMENTAL SCALE SQ SCH ×4 (08:00→21:00)
[2017-10-05] MEDS: SODIUM CHLORIDE 0.9% FLUSH 10 ML FLUSH IV FLUSH SCH ×2 (08:03→20:57)
[2017-10-05] MEDS: METOPROLOL TARTRATE 25 MG TAB PO SCH ×3 (08:04→20:54)
[2017-10-05] MEDS: DOCUSATE SODIUM 50 MG/SENNA 8.6 MG TAB PO SCH ×2 (08:04→20:45)
[2017-10-05] MEDS: ASPIRIN 81 MG CHEW TAB PO SCH (08:04)
[2017-10-05] MEDS: PANTOPRAZOLE SOD 40 MG DELAYED RELEASE TAB PO SCH (08:04)
[2017-10-05] MEDS: ARTIFICIAL TEARS OPTH SOLN 15 ML BTL EACH EYE SCH ×3 (08:05→16:51)
--- NOTE | 2017-10-05 08:13 | PD.CONS ---
HPI Consult Requested By Primary Care Physician No Primary Care Physician History of Present Illness 52-year-old male with a past medical history of asthma, ADDY on CPAP, untreated hypertension who presented for difficulty speaking. Patient states that 10:10 AM yesterday he noticed problems speaking. He also noticed yesterday evening that he had a hard time with his dexterity in typing on his laptop. Patient has not seen a physician in many years due to lack of insurance, was previously treated for high blood pressure at the time. His systolic blood pressures have been up in the 270s and he was on nicardipine drip overnight, which has currently been held. The patient's initial troponin was checked and found to be 0.07, elevated to 1.4 overnight. EKG shows sinus tachycardia rate 109, bifascicular block with right bundle branch block and left anterior fascicular block, no prior EKG for comparison. The patient denies any chest pain. He has noticed some dyspnea on exertion over the past several years with associated palpitations. (Shreyas Oleary) Review of Systems Negative except as stated in the HPI (Shreyas Oleary) Past Family Social History Allergies: Coded Allergies: No Known Allergies (Unverified , 10/04/17) Past Medical History Essential hypertension Elevated BMI Obstructive sleep apnea on CPAP Mild intermittent asthma Past Surgical History None Reported Medications Reported Meds & Active Scripts Active No Active Prescriptions or Reported Medications Active Ordered Medications Current Medications Medications (Trade) Dose Ordered Sig/Ashley Route Start Time Stop Time Status Last Admin Sodium Chloride 1,000 ml @ 84 mls/hr [id number] IV 10/04/17 13:14 10/06/17 13:13 10/05/17 04:14 (NS Flush) 2 ml UNSCH PRN IV FLUSH 10/04/17 13:15 (Tylenol) 650 mg Q6H PRN PO 10/04/17 13:15 (Burr 5-325 Mg) 1 tab Q4H PRN PO 10/04/17 15:00 (Morphine Inj) 2 mg Q2H PRN IV PUSH 10/04/17 14:45 (Protonix) 40 mg DAILY PO 10/05/17 09:00 (Tears Naturale Opth Soln) 1 drop TID EACH EYE 10/04/17 18:00 (Zofran Inj) 4 mg Q6H PRN IV PUSH 10/04/17 13:15 (Duoneb Neb) 1 ampule Q4HR NEB INH 10/04/17 16:00 10/05/17 07:28 (Albuterol Neb) 2.5 mg Q2HR NEB PRN INH 10/04/17 13:15 ([facility] Nursing Information) 1 Q361D XX 10/04/17 13:15 10/04/17 19:15 (Deanna-Colace) 1 tab BID PO 10/04/17 21:00 (Milk Of Magnesia Liq) 30 ml Q12H PRN PO 10/04/17 13:15 (Senokot) 17.2 mg Q12H PRN PO 10/04/17 13:15 (Dulcolax Supp) 10 mg DAILY PRN RECTAL 10/04/17 13:15 (Lactulose Liq) 30 ml DAILY PRN PO 10/04/17 13:15 (Trandate Inj) 10 mg Q1HR PRN IV PUSH 10/04/17 13:30 10/04/17 20:07 Potassium Chloride 100 ml @ 50 mls/hr Q2H PRN IV 10/04/17 13:30 Potassium Chloride 100 ml @ 50 mls/hr Q2H PRN IV 10/04/17 13:30 10/05/17 06:34 (K-Lyte Cl Eff) 50 meq UNSCH PRN PO 10/04/17 13:30 Potassium Chloride 100 ml @ 25 mls/hr UNSCH PRN IV 10/04/17 13:30 Potassium Chloride 100 ml @ 50 mls/hr Q2H PRN IV 10/04/17 13:30 Magnesium Sulfate 4 gm/Sodium Chloride 100 ml @ 50 mls/hr UNSCH PRN IV 10/04/17 13:30 (Mag-Ox) 800 mg UNSCH PRN PO 10/04/17 13:30 Magnesium Sulfate 2 gm/Sodium Chloride 100 ml @ 50 mls/hr UNSCH PRN IV 10/04/17 13:30 (K-Phos) 2,000 mg Q4H PRN PO 10/04/17 13:30 Sodium Phosphate 30 mmol/Sodium Chloride 250 ml @ 42 mls/hr UNSCH PRN IV 10/04/17 13:30 (K-Phos) 2,000 mg UNSCH PRN PO/TUBE 10/04/17 13:30 Potassium Phosphate 30 mmol/ Sodium Chloride 260 ml @ 42 mls/hr UNSCH PRN IV 10/04/17 13:30 (NS Flush) 2 ml BID IV FLUSH 10/04/17 21:00 10/04/17 19:57 (Aspirin Chew) 81 mg DAILY PO 10/05/17 09:00 (Lipitor) 10 mg HS PO 10/04/17 21:00 (NovoLOG SUPPLEMENTAL SCALE) 1 ACHS SQ 10/04/17 17:00 (D50w (Vial) Inj) 50 ml UNSCH PRN IV PUSH 10/04/17 13:30 (Glucagon Inj) 1 mg UNSCH PRN OTHER 10/04/17 13:30 (Nitroglycerin 2% Oint) 2 inch Q6HR PRN TOPICAL 10/04/17 14:15 ([facility] Nursing Information) Patient in critical care unit? Ass... Q361D .XX 10/04/17 21:30 10/04/17 21:18 (Chlorhexidine 2% Cloth) 3 pack DAILY@04 TOPICAL 10/05/17 04:00 10/09/17 04:01 (Chlorhexidine 2% Cloth) 3 pack UNSCH PRN TOPICAL 10/04/17 21:30 10/09/17 21:16 (Lopressor) 25 mg Q12HR PO 10/05/17 09:00 Nicardipine HCl 25 mg/Sodium Chloride 260 ml @ 52 mls/hr TITRATE PRN IV 10/05/17 06:45 (Pill Splitter) 1 ea UNSCH PRN OTHER 10/05/17 06:45 (Heparin Inj) 5,000 units Q8HR SQ 10/05/17 14:00 (KCl) 20 meq ONCE ONCE PO 10/05/17 12:00 10/05/17 12:01 (Prinivil) 10 mg DAILY PO 10/05/17 09:00 UNV (Norvasc) 5 mg DAILY PO 10/05/17 09:00 UNV Family History Paternal grandmother and grandfather with myocardial infarction. Father with cardiac stent age 49. Mother in good health. Social History Denies tobacco, alcohol or illicit drug use (Shreyas Oleary) Physical Exam Vital Signs Vital Signs Date Time Temp Pulse Resp B/P (MAP) Pulse Ox O2 Delivery O2 Flow Rate FiO2 10/05/17 06:00 70 6/18/18 06:00 72 19 197/91 (126) 10/05/17 05:00 88 12 207/95 (132) 10/05/17 04:00 66 10/05/17 04:00 98.8 66 18 202/96 (131) 10/05/17 03:00 78 10 198/92 (127) 10/05/17 02:30 72 19 185/88 (120) 10/05/17 02:00 68 20 179/82 (114) 10/05/17 02:00 68 179/82 10/05/17 02:00 68 10/05/17 01:40 70 180/82 10/05/17 01:30 74 12 180/82 (114) 10/05/17 01:21 72 176/81 10/05/17 01:00 72 19 176/81 (112) 10/05/17 00:48 72 177/80 10/05/17 00:30 74 19 177/80 (112) 10/05/17 00:00 98.4 76 18 182/82 (115) 94 10/05/17 00:00 73 10/04/17 23:49 76 178/83 10/04/17 23:30 82 14 178/83 (114) Manual Cuff/Auscultation 10/04/17 23:10 74 15 172/74 (106) 10/04/17 23:09 73 172/74 10/04/17 23:04 73 171/82 10/04/17 22:57 76 14 171/82 (111) 10/04/17 22:47 82 27 182/81 (114) 10/04/17 22:30 88 24 192/85 (120) 10/04/17 22:15 90 14 191/86 (121) 10/04/17 22:03 88 24 184/91 (122) 10/04/17 22:00 90 10/04/17 21:15 84 19 178/81 (113) 10/04/17 21:15 83 178/81 10/04/17 21:00 88 26 184/85 (118) 10/04/17 20:45 88 19 174/83 (113) 10/04/17 20:30 84 12 171/80 (110) 10/04/17 20:30 84 179/80 6/17/18 20:17 94 21 617/18 20:15 82 13 178/79 (112) 6/18 20:10 98 189/89 617/18 20:00 98.3 96 24 189/89 (122) 95 617/18 20:00 93 617/18 19:53 98 26 198/91 (126) 617/18 19:30 96 21 199/86 (123) 618 19:00 98 20 197/96 (129) 618 18:00 100 617/18 17:31 104 27 204/100 (134) 94 617/18 17:23 106 214/108 6/18 17:15 108 31 214/108 (143) 94 618 17:00 112 26 187/79 (115) 18 16:45 118 30 203/94 (130) 95 18 16:37 116 26 203/99 (133) 95 18 16:30 128 33 231/103 (145) 96 18 16:15 120 40 222/100 (140) 10/04/18 16:01 112 215/102 617/18 16:00 110 18 16:00 110 28 215/103 (140) 95 618 15:45 110 20 222/111 (148) 96 6/18 15:43 95 10/04/18 15:30 110 23 202/101 (134) 95 18 15:30 110 17/18 15:26 110 233/94 618 15:23 110 33 233/94 (140) 95 6/18 15:20 98.6 110 28 196/106 (136) 18 15:04 18 15:00 112 18 193/95 (127) 94 Room Air 10/04/17 14:30 Room Air 18 14:30 110 18 198/96 (130) 96 Room Air 18 14:08 179/94 (122) 18 13:53 185/94 (124) 18 13:36 120 18 193/87 (122) 96 Room Air 10/04/17 13:15 118 16 203/95 (131) 95 Room Air 10/04/17 12:45 249/111 (157) 10/04/17 12:30 110 18 249/103 (151) 97 10/04/17 12:15 263/123 (169) 10/04/17 12:02 105 276/149 10/04/17 11:49 97 Room Air 10/04/17 11:33 (192) 10/04/17 11:26 Room Air 10/04/17 11:26 98.2 114 18 276/149 (191) 97 Room Air 260/158 (192) Physical Exam GENERAL: Well-developed well-nourished. Obese. In no acute distress. NECK: No carotid bruits. No JVD. CARDIOVASCULAR: Regular rate and rhythm. No murmur appreciated. RESPIRATORY: No accessory muscle use. Clear to auscultation. Breath sounds equal bilaterally. MUSCULOSKELETAL: No clubbing or cyanosis. No edema. Hyperpigmented skin changes bilateral ankles. NEUROLOGICAL: Awake and alert. Normal speech. Laboratory Laboratory Tests Test 10/04/17 11:50 10/04/17 13:45 10/04/17 16:10 10/04/17 18:50 White Blood Count 10.3 Red Blood Count 5.78 Hemoglobin 16.2 Hematocrit 49.5 Mean Corpuscular Volume 85.8 Mean Corpuscular Hemoglobin 28.1 Mean Corpuscular Hemoglobin Concent 32.8 Red Cell Distribution Width 13.3 Platelet Count 232 Mean Platelet Volume 10.2 Neutrophils (%) (Auto) 65.0 Lymphocytes (%) (Auto) 23.2 Monocytes (%) (Auto) 7.1 Eosinophils (%) (Auto) 1.4 Basophils (%) (Auto) 3.3 Neutrophils # (Auto) 6.8 Lymphocytes # (Auto) 2.4 Monocytes # (Auto) 0.7 Eosinophils # (Auto) 0.1 Basophils # (Auto) 0.3 CBC Comment DIFF FINAL Differential Comment Prothrombin Time 10.1 Prothromb Time International Ratio 1.0 Activated Partial Thromboplast Time 28.1 Blood Urea Nitrogen 17 Creatinine 1.00 Random Glucose 99 Total Protein 8.8 Albumin 4.0 Calcium Level 9.1 Alkaline Phosphatase 80 Aspartate Amino Transf (AST/SGOT) 23 Alanine Aminotransferase (ALT/SGPT) 28 Total Bilirubin 0.5 Sodium Level 139 Potassium Level 3.8 Chloride Level 103 Carbon Dioxide Level 27.8 Anion Gap 8 Estimat Glomerular Filtration Rate 79 Troponin I 0.07 1.40 Nasal Screen MRSA (PCR) MRSA NOT DETECTED Total Creatine Kinase 146 Test 10/04/17 21:50 10/05/17 04:30 White Blood Count 11.9 Red Blood Count 5.02 Hemoglobin 14.2 Hematocrit 43.2 Mean Corpuscular Volume 86.2 Mean Corpuscular Hemoglobin 28.3 Mean Corpuscular Hemoglobin Concent 32.8 Red Cell Distribution Width 13.1 Platelet Count 206 Mean Platelet Volume 9.6 Neutrophils (%) (Auto) 69.4 Lymphocytes (%) (Auto) 21.6 Monocytes (%) (Auto) 7.8 Eosinophils (%) (Auto) 0.6 Basophils (%) (Auto) 0.6 Neutrophils # (Auto) 8.2 Lymphocytes # (Auto) 2.6 Monocytes # (Auto) 0.9 Eosinophils # (Auto) 0.1 Basophils # (Auto) 0.1 CBC Comment DIFF FINAL Differential Comment Prothrombin Time 10.7 Prothromb Time International Ratio 1.1 Activated Partial Thromboplast Time 27.7 Blood Urea Nitrogen 14 Creatinine 0.86 Random Glucose 117 Total Protein 7.1 Albumin 3.3 Calcium Level 8.0 Phosphorus Level 3.8 Magnesium Level 2.2 Alkaline Phosphatase 64 Aspartate Amino Transf (AST/SGOT) 40 Alanine Aminotransferase (ALT/SGPT) 24 Total Bilirubin 0.6 Sodium Level 142 Potassium Level 3.2 Chloride Level 107 Carbon Dioxide Level 25.3 Anion Gap 10 Estimat Glomerular Filtration Rate 94 Lactic Acid Level 1.2 Ammonia 16 (Shreyas Oleary) Result Diagram: 10/05/17 0430 10/05/17 0430 Imaging Last Impressions Head CT 10/04/17 1146 Signed Impressions: CONCLUSION: 1. No acute intracranial abnormality is identified. 2. Chronic findings include mild atrophy and periventricular white matter evans ge characteristic of chronic microvascular ischemia. Additionally, there is an old lacune in the region of the right caudate. Chest X-Ray 10/04/17 0000 Signed Impressions: CONCLUSION: The lungs are clear. (Shreyas Oleary) Assessment and Plan Assessment and Plan 52-year-old male with a past medical history of asthma, ADDY on CPAP, untreated hypertension who presented for difficulty speaking. Patient states that 10:10 AM yesterday he noticed problems speaking. He also noticed yesterday evening that he had a hard time with his dexterity in typing on his laptop. Patient has not seen a physician in many years due to lack of insurance, was previously treated for high blood pressure at the time. His systolic blood pressures have been up in the 270s and he was on nicardipine drip overnight, which has currently been held. The patient's initial troponin was checked and found to be 0.07, elevated to 1.4 overnight. EKG shows sinus tachycardia rate 109, bifascicular block with right bundle branch block and left anterior fascicular block, no prior EKG for comparison. The patient denies any chest pain. He has noticed some dyspnea on exertion over the past several years with associated palpitations. Hypertensive emergency: Secondary to medical nonadherence. We are near 24 hours out from a neurologic symptom onset. Will begin to treat hypertension with lisinopril 10 mg, amlodipine 5 mg, metoprolol 25 mg. Continue nicardipine gtt prn SBP >200. Recommend titrating BP meds over the next 1-2 days. Elevated troponin: We will plan for Lexiscan, likely tomorrow after BP improved. Stroke syndrome: Neurology consulted. Morbid obesity: Recommended lifestyle modifications. Discussed Condition With Patient, RN, Dr. Pollard (Shreyas Oleary) Assessment and Plan Patient seen and examined. Agree with above. HTN Emergency Chronic uncontrolled HTN Stroke syndrome Elevated Troponin Morbid obesity ADDY (Edmundo Pollard DO) Shreyas Oleary Oct 05, 2017 08:13 Edmundo Pollard DO Oct 06, 2017 07:48
[2017-10-05] MEDS ORDERED: POTASSIUM CHLORIDE 20 MEQ CONTROLLED RELEASE TAB PO ONE ×2 (08:15→12:00)
[2017-10-05 08:41] LABS: TROPONIN I 6.86 NG/ML (0.02-0.05)
[2017-10-05] MEDS ORDERED: LISINOPRIL 10 MG TAB PO SCH (09:00)
[2017-10-05] MEDS ORDERED: LISINOPRIL 5 MG TAB PO SCH (09:00)
[2017-10-05] MEDS: amLODIPine BESYLATE 5 MG TAB PO SCH ×2 (09:00→11:46)
--- NOTE | 2017-10-05 09:03 | RADRPT ---
EXAM DATE: 10/04/2017 3:05 PM EDT AGE/SEX: 52 years / Male INDICATIONS: Cerebrovascular accident. CLINICAL DATA: This is the patient's initial encounter. Patient reports that signs and symptoms have been present for 1 day and indicates a pain score of 0/10. MEDICAL/SURGICAL HISTORY: Hypertension. Sleep apnea. Asthma. None. COMPARISON: . VELOCITY PARAMETERS: ICA/CCA Ratio: Right 0.8 , Left 0.5 ICA: Right 120 cm/sec, Left 126 cm/sec CCA: Right 151 cm/sec, Left 258 cm/sec ECA: Right 178 cm/sec, Left 267 cm/sec Vertebral: Right 84 cm/sec antegrade, Left 67 cm/sec antegrade FINDINGS: Right Carotid: No significant stenosis is visualized. The waveforms are within normal limits. Left Carotid: No significant stenosis is visualized. The waveforms are within normal limits. Other: None. CONCLUSION: 1. Right Internal Carotid Artery: 2. Left Internal Carotid Artery: Electronically signed by: Nato Enriquez MD 10/05/2017 9:02 AM EDT
[2017-10-05] MEDS: LABETALOL HCL 100 MG/20 ML VIAL IV PUSH PRN (12:27)
--- NOTE | 2017-10-05 12:59 | MG ---
cc: Toby Tellez MD, PhD EEG TEST NUMBER: [id number] TECHNIQUE: This is a 17-channel EEG. DESCRIPTION: Background rhythm reveals symmetrical alpha rhythm, frequency 8-10 Hz. Amplitude is 20-30 microvolts. There are no lateralizing features, no epileptiform discharges. Occasional muscle artifact is seen. Photic results in a normal driving response. During drowsiness, there is mild slowing in the theta range. The patient does appear to fall asleep. Some vertex sharp waves are present. Photic results in normal driving response. INTERPRETATION: Normal EEG. Toby Tellez MD, PhD ADALI/SB , 12:48 PM , 12:59 PM
[2017-10-05] MEDS ORDERED: LORazepam 1 MG TAB PO ONE (13:15)
--- NOTE | 2017-10-05 13:54 | ECHRPT ---
Indication: HYPERTENSIVE HEART DISEASE CONCLUSIONS Very technically difficult study In limited views, the left ventricular systolic function is normal with an estimated ejection fracti on in the range of 55-60%. There was limited left ventricular wall motion assessment due to poor endocardial visualization. [id number] mitral valve regurgitation. There is trace tricuspid valve regurgitation. BP: 197 / 91 HR: 70 Rhythm: Sinus MEASUREMENTS (Male / Female) Normal Values Technical Quality:Very technically difficult study 2D ECHO LVOT Diameter 2.4 cm Aortic Root Diameter 3.7 cm M-MODE LV Diastolic Diameter MM 6.9 cm 4.2 - 5.9 / 3.9 - 5.3 cm LV Systolic Diameter MM 4.8 cm LV Ejection Fraction MM Teich 57.2 % LV Cardiac Index MM Teich 3449.9 cm/minm IVS Diastolic Thickness MM 1.5 cm 0.6 - 1.0 / 0.6 - 0.9 cm LVPW Diastolic Thickness MM 1.5 cm 0.6 - 1.0 / 0.6 - 0.9 cm LV Relative Wall Thickness MM 0.4 0.24 - 0.42 / 0.22 - 0.42 LV Mass Index MM 184.3 g/m 49 - 115 / 43 - 95 g/m RV Diastolic Diameter MM 2.3 cm DOPPLER PV Peak Velocity 45.9 cm/s PV Peak Gradient 0.8 mmHg FINDINGS LEFT VENTRICLE In limited views, the left ventricular systolic function is normal with an estimated ejection fracti on in the range of 55-60%. There was limited left ventricular wall motion assessment due to poor endocardial visualization. RIGHT VENTRICLE Grossly normal in limited views. LEFT ATRIUM The left atrium was not well visualized. RIGHT ATRIUM The right atrium is not well visualized. ATRIAL SEPTUM No atrial level shunt is demonstrated by color flow Doppler interrogation. AORTA The aortic root and proximal ascending aorta are not well visualized. MITRAL VALVE Grossly normal [id number] mitral valve regurgitation. AORTIC VALVE The aortic valve is not well visualized. TRICUSPID VALVE The tricuspid valve is not well visualized. There is trace tricuspid valve regurgitation. PULMONARY VALVE The pulmonary valve is not well visualized. PERICARDIUM No pericardial effusion. Isaias Awan DO (Electronically Signed) Final Date:05 October 2017 13:52
[2017-10-05 14:13] LABS: CHOLESTEROL/ HDL RATIO 8.18 RATIO; HDL CHOLESTEROL 29.2 MG/DL (40.0-60.0)
[2017-10-05] MEDS ORDERED: IOHEXOL 350 MG/ML 10 ML VIAL (for RAD DIAG) IVCONTRAST ONE (15:46)
--- NOTE | 2017-10-05 16:12 | RADRPT ---
EXAM DATE: 10/05/2017 3:48 PM EDT AGE/SEX: 52 years / Male INDICATIONS: Episode of dysphasia yesterday. CLINICAL DATA: This is the patient's initial encounter. Patient reports that signs and symptoms have been present for 1 day and indicates a pain score of 0/10. MEDICAL/SURGICAL HISTORY: Hypertension. None. RADIATION DOSE: 52.83 CTDI (mGy) COMPARISON: [facility], CT BRAIN W/O CONTRAST, 10/04/2017. . TECHNIQUE: CT of the head without contrast. Using automated exposure control and adjustment of the mA and/or kV according to patient size, radiation dose was kept as low as reasonably achievable to ob tain optimal diagnostic quality images. FINDINGS: Cerebrum: The ventricles are normal for age. The cortical sulci are somewhat widened for the patient 's age. There is decreased density seen throughout the periventricular white matter. In addition, the re is a lacunar infarct at the right anterior caudate. There is a lacunar infarct at the right basal ganglia and right external capsule region. There are small areas of low density seen in the periventr icular white matter which could also be lacunar infarcts. No evidence of midline shift, mass lesion, hemorrhage or acute infarction. No extraaxial fluid collections are seen. Posterior Fossa: The cerebellum and brainstem are intact. The 4th ventricle is midline. The cerebe llopontine angle is unremarkable. Extracranial: The visualized portion of the orbits is intact. There is minimal ethmoid and maxillary sinus disease. Skull: The calvaria is intact. No evidence of skull fracture. CONCLUSION: 1. No definite acute abnormality is seen. 2. Extensive low density in the cerebral white matter concerning for demyelination. This could be se condary to small vessel ischemic change. It is nonspecific. 3. Several lacunar infarcts are seen. Given this finding, the possible small vessel ischemic change, and the patient's age, one could consider underlying etiology such as vasculitis. Electronically signed by: Jassi Whitehead MD 10/05/2017 4:10 PM EDT
[2017-10-05] MEDS: ACETYLCYSTEINE 20% 6,000 MG/30 ML ORAL SOLN VIAL PO SCH ×3 (16:23→20:55)
[2017-10-05 16:24] LABS: HEMOGLOBIN A1C 5.5 % (4.3-6.0)
[2017-10-05] MEDS: HEPARIN SODIUM - SQ 10,000 UNITS/ML VIAL SQ SCH ×2 (16:51→20:56)
--- NOTE | 2017-10-05 17:48 | RADRPT ---
EXAM DATE: 10/05/2017 5:07 PM EDT AGE/SEX: 52 years / Male INDICATIONS: Episode of dysphasia yesterday. CLINICAL DATA: This is the patient's initial encounter. Patient reports that signs and symptoms have been present for 1 day and indicates a pain score of 0/10. MEDICAL/SURGICAL HISTORY: Hypertension. None. RADIATION DOSE: 11.47 CTDI (mGy) ; Combined studies ; Patient body habitus COMPARISON: No prior exams available for comparison. TECHNIQUE: Volumetric scanning was performed using a multi-row detector CT scanner during bolus infu garcia of 83 ml Omnipaque 350 (iohexol) nonionic water-soluble contrast as a single exam dose. The d eleazar was post processed with a variety of visualization algorithms including full volume maximum inten sity projection, multi-planar sliding thin slab reformation, curved planar reformation, and surface r endering techniques. Using automated exposure control and adjustment of the mA and/or kV according t o patient size, radiation dose was kept as low as reasonably achievable to obtain optimal diagnostic quality images. DICOM format image data is available electronically for review and comparison. FINDINGS: There is excellent visualization of the major intracranial arteries out to the second-order branch ve ssels. There is no evidence for aneurysm, vessel truncation or stenosis, and no evidence for vascula r malformation. There is calcification within the cavernous portions of the internal carotid arteries bilaterally. The basilar artery primarily ends as the right posterior cerebral artery. Much of the l eft posterior cerebral artery flow comes from the left internal carotid artery. There does appear to be a focal stenosis at the distal left vertebral artery. It also appears to be s ome narrowing of the distal basilar artery. This narrowing appears smooth. There is questionable mini mal nodularity seen at the M1 segments of the middle cerebral arteries especially on the left. The di stal flow appears symmetric and within normal limits. CONCLUSION: Focal stenosis at the distal left vertebral artery and a smooth stenosis at the distal basilar artery . There is also some questionable nodularity in the M1 segments of the middle cerebral arteries gris rning for underlying atherosclerotic change. Vasculitis could conceivably have a similar appearance. The distal flow appears symmetric and within normal limits. Electronically signed by: Jassi Whitehead MD 10/05/2017 5:47 PM EDT
--- NOTE | 2017-10-05 18:35 | RADRPT ---
EXAM DATE: 10/05/2017 5:20 PM EDT AGE/SEX: 52 years / Male INDICATIONS: Episode of dysphasia yesterday. CLINICAL DATA: This is the patient's initial encounter. Patient reports that signs and symptoms have been present for 1 day and indicates a pain score of 0/10. MEDICAL/SURGICAL HISTORY: Hypertension. None. RADIATION DOSE: 11.47 CTDI (mGy) ; Combined studies ; Patient body habitus COMPARISON: No prior exams available for comparison. TECHNIQUE: Volumetric scanning was performed using a multirow detector CT scanner during bolus infus ion of 83 ml Omnipaque 350 (iohexol) nonionic water-soluble contrast as a cumulative dose for multip le exams. The data was postprocessed with a variety of visualization algorithms including full-volu me maximum intensity projection, multiplanar sliding thin-slab reformation, curved-planar reformation , and surface-rendering techniques. Using automated exposure control and adjustment of the mA and/or kV according to patient size, radiation dose was kept as low as reasonably achievable to obtain opti mal diagnostic quality images. DICOM format image data is available electronically for review and co mparison. Elevated flow velocities and ICA/CCA ratios have been found to correlate with increased degrees of ve ssel stenosis, calculated as percentage of diameter relative to a normal segment of distal ICA/CCA. FINDINGS: Great vessel origins are patent. There is mild atherosclerotic plaque formation in both carotid arter ies, especially around the carotid bifurcation without hemodynamically significant stenosis in the co mmon carotid or internal carotid arteries bilaterally. Both vertebral arteries are patent in the neck . CONCLUSION: 1. Mild atherosclerotic plaque in the carotid arteries without hemodynamically significant stenosis Electronically signed by: Lisandro Purvis MD 10/05/2017 6:34 PM EDT
[2017-10-05 19:13] LABS: TROPONIN I 3.05 NG/ML (0.02-0.05)
[2017-10-05] MEDS: ATORVASTATIN 10 MG TAB PO SCH (20:44)
[2017-10-05 22:32] LABS: RHEUMATOID FACTOR SCREEN NEGATIVE (NEGATIVE)
--- NOTE | 2017-10-05 22:55 | EKG ---
Date Performed: 10/05/2017 Time Performed: 08:48:56 PTAGE: 52 years EKG: Sinus rhythm MARKED LEFT AXIS DEVIATION RIGHT BUNDLE BRANCH BLOCK LEFT VENTRICULAR HYPERTROPHY AND ST-T CHANGE AB NORMAL ECG PREVIOUS TRACING : 10/04/2017 11.15 DOCTOR: Ginger Hinson Interpretating Date/Time 10/05/2017 22:51:49
--- NOTE | 2017-10-05 23:17 | EKG ---
Date Performed: 10/04/2017 Time Performed: 11:15:38 PTAGE: 52 years EKG: SINUS TACHYCARDIA RIGHT BUNDLE BRANCH BLOCK LEFT ANTERIOR FASCICULAR BLOCK ABNORMAL ECG NO PREVIOUS TRACING DOCTOR: Ginger Hinson Interpretating Date/Time 10/05/2017 23:05:01
[2017-10-06] VITALS (29 sets, daily range): BP systolic 158–228; BP diastolic 68–108; PULSE 56–84; RESP 0–31; TEMP 98–99.3; O2SAT 94–96
[2017-10-06] MEDS: RESP: ALBUTEROL 2.5 MG/IPRATROPIUM 0.5 MG NEB (SCH) INH ×4 (03:11→16:00)
[2017-10-06] MEDS: CHLORHEXIDINE GLUCONATE 2 % 1 PACK (2 CLOTHS)(taper/protocol) TOPICAL SCH (04:00)
[2017-10-06 05:08] LABS: AUTOMATED NEUTROPHIL # 6.1 TH/MM3 (1.8-7.7); BASOPHIL # 0.1 TH/MM3 (0-0.2); BASOPHIL % 1.2 % (0.0-2.0); EOSINOPHIL # 0.2 TH/MM3 (0-0.4); EOSINOPHIL % 1.7 % (0.0-4.0); HEMATOCRIT 40.6 % (39.0-51.0); HEMOGLOBIN 13.4 GM/DL (13.0-17.0); LYMPH % 26.5 % (9.0-44.0); LYMPHOCYTE # 2.6 TH/MM3 (1.0-4.8); MEAN CELL VOLUME 87.2 FL (80.0-100.0); MEAN CORPUSCULAR HEMOGLOBIN 28.9 PG (27.0-34.0); MEAN CORPUSCULAR HGB CONC 33.1 % (32.0-36.0); MEAN PLATELET VOLUME 9.8 FL (7.0-11.0); MONO % 7.3 % (0.0-8.0); MONOCYTE # 0.7 TH/MM3 (0-0.9); NEUT % 63.3 % (16.0-70.0); PLATELET COUNT 178 TH/MM3 (150-450); RED BLOOD COUNT 4.65 MIL/MM3 (4.50-5.90); RED CELL DISTRIBUTION WIDTH 13.7 % (11.6-17.2); WHITE BLOOD COUNT 9.7 TH/MM3 (4.0-11.0)
[2017-10-06 05:22] LABS: BICARBONATE 23.2 MEQ/L (21.0-32.0); CALCIUM 8.3 MG/DL (8.5-10.1); MAGNESIUM 2.3 MG/DL (1.5-2.5)
[2017-10-06 05:26] LABS: CREATININE 1.2 MG/DL (0.60-1.30); PHOSPHORUS 4.3 MG/DL (2.5-4.9)
[2017-10-06 05:42] LABS: TROPONIN I 2.17 NG/ML (0.02-0.05)
[2017-10-06] MEDS: HEPARIN SODIUM - SQ 10,000 UNITS/ML VIAL SQ SCH ×3 (06:30→22:36)
--- NOTE | 2017-10-06 07:42 | PD.CARD.PN ---
Subjective Subjective Remarks He feels his speech is improving some today. He denies any chest pain, shortness of breath, palpitations. (Shreyas Oleary) Objective Medications Current Medications Medications (Trade) Dose Ordered Sig/Ashley Route Start Time Stop Time Status Last Admin Sodium Chloride 1,000 ml @ 84 mls/hr [id number] IV 10/04/17 13:14 10/06/17 13:13 10/05/17 20:54 (NS Flush) 2 ml UNSCH PRN IV FLUSH 10/04/17 13:15 (Tylenol) 650 mg Q6H PRN PO 10/04/17 13:15 ([place] 5-325 Mg) 1 tab Q4H PRN PO 10/04/17 15:00 (Morphine Inj) 2 mg Q2H PRN IV PUSH 10/04/17 14:45 (Protonix) 40 mg DAILY PO 10/05/17 09:00 10/05/17 08:04 (Tears Naturale Opth Soln) 1 drop TID EACH EYE 10/04/17 18:00 (Zofran Inj) 4 mg Q6H PRN IV PUSH 10/04/17 13:15 (Duoneb Neb) 1 ampule Q4HR NEB INH 10/04/17 16:00 10/06/17 07:27 (Albuterol Neb) 2.5 mg Q2HR NEB PRN INH 10/04/17 13:15 [place] [place] 1 Q361D XX 10/04/17 13:15 10/04/17 19:15 (Deanna-Colace) 1 tab BID PO 10/04/17 21:00 (Milk Of Magnesia Liq) 30 ml Q12H PRN PO 10/04/17 13:15 (Senokot) 17.2 mg Q12H PRN PO 10/04/17 13:15 (Dulcolax Supp) 10 mg DAILY PRN RECTAL 10/04/17 13:15 (Lactulose Liq) 30 ml DAILY PRN PO 10/04/17 13:15 (Trandate Inj) 10 mg Q1HR PRN IV PUSH 10/04/17 13:30 10/05/17 12:27 Potassium Chloride 100 ml @ 50 mls/hr Q2H PRN IV 10/04/17 13:30 Potassium Chloride 100 ml @ 50 mls/hr Q2H PRN IV 10/04/17 13:30 10/05/17 06:34 (K-Lyte Cl Eff) 50 meq UNSCH PRN PO 10/04/17 13:30 Potassium Chloride 100 ml @ 25 mls/hr UNSCH PRN IV 10/04/17 13:30 Potassium Chloride 100 ml @ 50 mls/hr Q2H PRN IV 10/04/17 13:30 Magnesium Sulfate 4 gm/Sodium Chloride 100 ml @ 50 mls/hr UNSCH PRN IV 10/04/17 13:30 (Mag-Ox) 800 mg UNSCH PRN PO 10/04/17 13:30 Magnesium Sulfate 2 gm/Sodium Chloride 100 ml @ 50 mls/hr UNSCH PRN IV 10/04/17 13:30 (K-Phos) 2,000 mg Q4H PRN PO 10/04/17 13:30 Sodium Phosphate 30 mmol/Sodium Chloride 250 ml @ 42 mls/hr UNSCH PRN IV 10/04/17 13:30 (K-Phos) 2,000 mg UNSCH PRN PO/TUBE 10/04/17 13:30 Potassium Phosphate 30 mmol/ Sodium Chloride 260 ml @ 42 mls/hr UNSCH PRN IV 10/04/17 13:30 (NS Flush) 2 ml BID IV FLUSH 10/04/17 21:00 10/05/17 20:57 (Aspirin Chew) 81 mg DAILY PO 10/05/17 09:00 10/05/17 08:04 (Lipitor) 10 mg HS PO 10/04/17 21:00 (NovoLOG SUPPLEMENTAL SCALE) 1 ACHS SQ 10/04/17 17:00 (D50w (Vial) Inj) 50 ml UNSCH PRN IV PUSH 10/04/17 13:30 (Glucagon Inj) 1 mg UNSCH PRN OTHER 10/04/17 13:30 (Nitroglycerin 2% Oint) 2 inch Q6HR PRN TOPICAL 10/04/17 14:15 [place] [place] Patient in [place] care unit? Ass... Q361D .XX 10/04/17 21:30 10/04/17 21:18 (Chlorhexidine 2% Cloth) 3 pack DAILY@04 TOPICAL 10/05/17 04:00 10/09/17 04:01 10/06/17 04:00 (Chlorhexidine 2% Cloth) 3 pack UNSCH PRN TOPICAL 10/04/17 21:30 10/09/17 21:16 (Lopressor) 25 mg Q12HR PO 10/05/17 09:00 10/05/17 20:54 Nicardipine HCl 25 mg/Sodium Chloride 260 ml @ 52 mls/hr TITRATE PRN IV 10/05/17 06:45 (Pill Splitter) 1 ea UNSCH PRN OTHER 10/05/17 06:45 (Heparin Inj) 5,000 units Q8HR SQ 10/05/17 14:00 10/06/17 06:30 (Prinivil) 10 mg DAILY PO 10/05/17 09:00 10/05/17 09:51 (Norvasc) 5 mg DAILY PO 10/05/17 09:00 10/05/17 11:46 (Mucomyst 20% Liq) 600 mg BID PO 10/05/17 15:00 10/06/17 21:01 10/05/17 20:55 Vital Signs / I&O Vital Signs Date Time Temp Pulse Resp B/P (MAP) Pulse Ox O2 Delivery O2 Flow Rate FiO2 10/06/17 07:32 96 21 10/06/17 04:01 98.0 58 19 158/75 (102) 94 10/06/17 04:00 60 10/06/17 03:01 56 18 175/84 (114) 10/06/17 02:01 60 19 160/80 (106) 10/06/17 02:00 58 10/06/17 01:01 58 2 159/68 (98) 10/06/17 00:01 98.0 60 17 163/84 (110) 96 10/06/17 00:00 60 10/05/17 23:00 56 19 160/73 (102) 10/05/17 22:00 62 20 160/75 (103) 10/05/17 22:00 62 10/05/17 21:01 72 18 184/78 (113) 10/05/17 20:00 75 10/05/17 20:00 98.2 82 28 188/83 (118) 10/05/17 19:20 97 21 10/05/17 19:00 74 19 166/87 (113) 96 10/05/17 18:00 74 10/05/17 17:00 82 42 186/86 (119) 96 10/05/17 17:00 82 10/05/17 16:44 97.7 73 7 180/84 (116) 96 10/05/17 13:00 66 22 186/92 (123) 96 10/05/17 12:00 76 10/05/17 12:00 98.9 76 22 223/92 (135) 95 10/05/17 11:33 98 21 10/05/17 11:04 80 18 227/107 (147) 10/05/17 11:00 84 10/05/17 10:59 82 27 230/103 (145) 96 10/05/17 10:27 225/107 (146) 10/05/17 10:00 100 10/05/17 10:00 100 31 10/05/17 09:00 100 10/05/17 09:00 100 42 10/05/17 08:00 80 22 198/99 (132) 10/05/17 08:00 80 I/O 10/05/17 10/05/17 10/05/17 10/06/17 10/06/17 10/06/17 07:00 15:00 23:00 07:00 15:00 23:00 Intake Total 460 ml 600 ml 100 ml Output Total 400 ml 945 ml 450 ml Balance 60 ml -345 ml -350 ml Intake Oral 200 ml 600 ml 100 ml IV Total 260 ml Output Urine Total 400 ml 945 ml 450 ml # Voids 1 1 1 # Bowel Movements 0 0 0 Physical Exam GENERAL: Well-developed well-nourished. Obese. In no acute distress. NECK: No carotid bruits. No JVD. CARDIOVASCULAR: Regular rate and rhythm. No murmur appreciated. RESPIRATORY: No accessory muscle use. Clear to auscultation. Breath sounds equal bilaterally. MUSCULOSKELETAL: No clubbing or cyanosis. No edema. Hyperpigmented skin changes bilateral ankles. NEUROLOGICAL: Awake and alert. Normal speech. Laboratory Laboratory Tests Test 10/05/17 16:36 10/05/17 18:35 10/06/17 04:43 Erythrocyte Sedimentation Rate 18 mm/hr Potassium Level 3.7 MEQ/L 3.6 MEQ/L Troponin I 3.05 NG/ML 2.17 NG/ML C-Reactive Protein 1.18 MG/DL Rheumatoid Factor Screen NEGATIVE Rheumatoid Factor Titer IU/ML White Blood Count 9.7 TH/MM3 Red Blood Count 4.65 MIL/MM3 Hemoglobin 13.4 GM/DL Hematocrit 40.6 % Mean Corpuscular Volume 87.2 FL Mean Corpuscular Hemoglobin 28.9 PG Mean Corpuscular Hemoglobin Concent 33.1 % Red Cell Distribution Width 13.7 % Platelet Count 178 TH/MM3 Mean Platelet Volume 9.8 FL Neutrophils (%) (Auto) 63.3 % Lymphocytes (%) (Auto) 26.5 % Monocytes (%) (Auto) 7.3 % Eosinophils (%) (Auto) 1.7 % Basophils (%) (Auto) 1.2 % Neutrophils # (Auto) 6.1 TH/MM3 Lymphocytes # (Auto) 2.6 TH/MM3 Monocytes # (Auto) 0.7 TH/MM3 Eosinophils # (Auto) 0.2 TH/MM3 Basophils # (Auto) 0.1 TH/MM3 CBC Comment DIFF FINAL Differential Comment Blood Urea Nitrogen 18 MG/DL Creatinine 1.20 MG/DL Random Glucose 103 MG/DL Calcium Level 8.3 MG/DL Phosphorus Level 4.3 MG/DL Magnesium Level 2.3 MG/DL Sodium Level 142 MEQ/L Chloride Level 110 MEQ/L Carbon Dioxide Level 23.2 MEQ/L Anion Gap 9 MEQ/L Estimat Glomerular Filtration Rate 64 ML/MIN Imaging Last Impressions Neck CTA 10/05/17 0000 Signed Impressions: CONCLUSION: 1. Mild atherosclerotic plaque in the carotid arteries without hemodynamically significant stenosis Head CTA 10/05/17 0000 Signed Impressions: CONCLUSION: Focal stenosis at the distal left vertebral artery and a smooth stenosis at the distal basilar artery. There is also some questionable nodularity in the M1 se gments of the middle cerebral arteries concerning for underlying atheroscleroti c change. Vasculitis could conceivably have a similar appearance. The distal fl ow appears symmetric and within normal limits. Head CT 10/05/17 0000 Signed Impressions: CONCLUSION: 1. No definite acute abnormality is seen. 2. Extensive low density in the cerebral white matter concerning for demyelina tion. This could be secondary to small vessel ischemic change. It is nonspecifi c. 3. Several lacunar infarcts are seen. Given this finding, the possible small v essel ischemic change, and the patient's age, one could consider underlying jassi ology such as vasculitis. Chest X-Ray 10/04/17 0000 Signed Impressions: CONCLUSION: The lungs are clear. Carotid Artery Ultrasound 10/04/17 0000 Signed Impressions: CONCLUSION: 1. Right Internal Carotid Artery: 2. Left Internal Carotid Artery: (Shreyas Oleary) Assessment and Plan Assessment and Plan 52-year-old male with a past medical history of asthma, ADDY on CPAP, untreated hypertension who presented for difficulty speaking. Patient states that 10:10 AM yesterday he noticed problems speaking. He also noticed yesterday evening that he had a hard time with his dexterity in typing on his laptop. Patient has not seen a physician in many years due to lack of insurance, was previously treated for high blood pressure at the time. His systolic blood pressures have been up in the 270s and he was on nicardipine drip overnight, which has currently been held. The patient's initial troponin was checked and found to be 0.07, elevated to 1.4 overnight. EKG shows sinus tachycardia rate 109, bifascicular block with right bundle branch block and left anterior fascicular block, no prior EKG for comparison. The patient denies any chest pain. He has noticed some dyspnea on exertion over the past several years with associated palpitations. Hypertensive emergency: Secondary to medical nonadherence. Slowly improving. Increase lisinopril 10 mg and amlodipine 5 mg to twice daily. Continue metoprolol 25 mg BID. Nicardipine gtt prn SBP >200. Recommend titrating BP meds over the next 1-2 days. Elevated troponin: 0.07->6.86->2.17. N.p.o. for Lexiscan today. Stroke syndrome: Neurology consulted. Morbid obesity: Recommended lifestyle modifications. Discussed Condition With Patient, RN, Dr. Pollard, Hospitalist (Shreyas Oleary) Assessment and Plan Continue to uptitrate BP meds for slow BP improvement. Increase amlodipine to 5mg bid and lisinopril to 10mg bid today. Lexiscan stress test. If non-ischemic will sign off. Rest per primary team. (Edmundo Pollard DO) Shreyas Oleary Oct 06, 2017 07:42 Edmundo Pollard DO Oct 06, 2017 07:47
[2017-10-06] MEDS: INSULIN ASPART SUPPLEMENTAL SCALE SQ SCH ×2 (08:00→12:00)
[2017-10-06] MEDS: ACETYLCYSTEINE 20% 6,000 MG/30 ML ORAL SOLN VIAL PO SCH ×2 (08:10→21:00)
[2017-10-06] MEDS: ARTIFICIAL TEARS OPTH SOLN 15 ML BTL EACH EYE SCH ×3 (08:10→18:00)
[2017-10-06] MEDS: LISINOPRIL 10 MG TAB PO SCH ×2 (08:11→21:09)
[2017-10-06] MEDS: amLODIPine BESYLATE 5 MG TAB PO SCH ×2 (08:11→21:08)
[2017-10-06] MEDS: ASPIRIN 81 MG CHEW TAB PO SCH (08:11)
[2017-10-06] MEDS: METOPROLOL TARTRATE 25 MG TAB PO SCH (08:11)
[2017-10-06] MEDS: SODIUM CHLORIDE 0.9% FLUSH 10 ML FLUSH IV FLUSH SCH ×2 (08:11→21:00)
[2017-10-06] MEDS: DOCUSATE SODIUM 50 MG/SENNA 8.6 MG TAB PO SCH ×2 (08:12→21:09)
[2017-10-06] MEDS: PANTOPRAZOLE SOD 40 MG DELAYED RELEASE TAB PO SCH (08:12)
[2017-10-06 10:39] LABS: FREE T3 2.88 PG/ML (2.18-3.98); FREE T4 1.1 NG/DL (0.76-1.46)
[2017-10-06] MEDS ORDERED: REGADENOSON INJ 0.4 MG/5 ML SYR IV ONE (12:11)
[2017-10-06] MEDS: LABETALOL HCL 100 MG/20 ML VIAL IV PUSH PRN ×2 (14:22→17:10)
--- NOTE | 2017-10-06 16:38 | PD.CONS ---
History of Present Illness Service Neurology Consult Requested By Critical care for abnormal CT scan result Primary Care Physician No Primary Care Physician History of Present Illness 52-year-old male admitted for severe hypertension. Stop taking his blood pressure medication several years ago. He moved from [facility]. 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 He is on CPAP for sleep apnea Came in with difficulty with speech which has improved although he still notes some difficulty with fluency but feels it is getting better every day. Denies any weakness visual loss any temporal pain headache neck pain or trauma. Does not take any antiplatelets. Also found to have elevated troponins and is being followed by cardiology. Review of Systems As above and admission H&P. Denies any fever headache vision loss language disturbance and history of lupus or rash Past Family Social History Allergies: Coded Allergies: No Known Allergies (Unverified , 10/04/17) Past Medical History Essential hypertension Elevated BMI Obstructive sleep apnea on CPAP Mild intermittent asthma Past Surgical History None Reported Medications None Active Ordered Medications Reviewed in EMR Family History History microinfarctions grandparents Social History Denies tobacco, alcohol or illicit drug use Review of Systems All other ROS: ROS reviewed as documented in chart Past Family Social History Allergies: Coded Allergies: No Known Allergies (Unverified , 10/04/17) Active Ordered Medications Current Medications Medications (Trade) Dose Ordered Sig/Ashley Route Start Time Stop Time Status Last Admin (NS Flush) 2 ml UNSCH PRN IV FLUSH 10/04/17 13:15 (Tylenol) 650 mg Q6H PRN PO 10/04/17 13:15 ([place] 5-325 Mg) 1 tab Q4H PRN PO 10/04/17 15:00 (Morphine Inj) 2 mg Q2H PRN IV PUSH 10/04/17 14:45 (Protonix) 40 mg DAILY PO 10/05/17 09:00 10/06/17 08:12 (Tears Naturale Opth Soln) 1 drop TID EACH EYE 10/04/17 18:00 (Zofran Inj) 4 mg Q6H PRN IV PUSH 10/04/17 13:15 (Duoneb Neb) 1 ampule Q4HR NEB INH 10/04/17 16:00 10/06/17 07:27 (Albuterol Neb) 2.5 mg Q2HR NEB PRN INH 10/04/17 13:15 ([facility] [place] [facility] [place]) 1 Q361D XX 10/04/17 13:15 10/04/17 19:15 (Deanna-Colace) 1 tab BID PO 10/04/17 21:00 (Milk Of Magnesia Liq) 30 ml Q12H PRN PO 10/04/17 13:15 (Senokot) 17.2 mg Q12H PRN PO 10/04/17 13:15 (Dulcolax Supp) 10 mg DAILY PRN RECTAL 10/04/17 13:15 (Lactulose Liq) 30 ml DAILY PRN PO 10/04/17 13:15 (Trandate Inj) 10 mg Q1HR PRN IV PUSH 10/04/17 13:30 10/06/17 14:22 Potassium Chloride 100 ml @ 50 mls/hr Q2H PRN IV 10/04/17 13:30 Potassium Chloride 100 ml @ 50 mls/hr Q2H PRN IV 10/04/17 13:30 10/05/17 06:34 (K-Lyte Cl Eff) 50 meq UNSCH PRN PO 10/04/17 13:30 Potassium Chloride 100 ml @ 25 mls/hr UNSCH PRN IV 10/04/17 13:30 Potassium Chloride 100 ml @ 50 mls/hr Q2H PRN IV 10/04/17 13:30 Magnesium Sulfate 4 gm/Sodium Chloride 100 ml @ 50 mls/hr UNSCH PRN IV 10/04/17 13:30 (Mag-Ox) 800 mg UNSCH PRN PO 10/04/17 13:30 Magnesium Sulfate 2 gm/Sodium Chloride 100 ml @ 50 mls/hr UNSCH PRN IV 10/04/17 13:30 (K-Phos) 2,000 mg Q4H PRN PO 10/04/17 13:30 Sodium Phosphate 30 mmol/Sodium Chloride 250 ml @ 42 mls/hr UNSCH PRN IV 10/04/17 13:30 (K-Phos) 2,000 mg UNSCH PRN PO/TUBE 10/04/17 13:30 Potassium Phosphate 30 mmol/ Sodium Chloride 260 ml @ 42 mls/hr UNSCH PRN IV 10/04/17 13:30 (NS Flush) 2 ml BID IV FLUSH 10/04/17 21:00 10/06/17 08:11 (Aspirin Chew) 81 mg DAILY PO 10/05/17 09:00 10/06/17 08:11 (Lipitor) 10 mg HS PO 10/04/17 21:00 (NovoLOG SUPPLEMENTAL SCALE) 1 ACHS SQ 10/04/17 17:00 (D50w (Vial) Inj) 50 ml UNSCH PRN IV PUSH 10/04/17 13:30 (Glucagon Inj) 1 mg UNSCH PRN OTHER 10/04/17 13:30 (Nitroglycerin 2% Oint) 2 inch Q6HR PRN TOPICAL 10/04/17 14:15 ([facility] [place] [facility] [place]) Patient in critical care unit? Ass... Q361D .XX 10/04/17 21:30 10/04/17 21:18 (Chlorhexidine 2% Cloth) 3 pack DAILY@04 TOPICAL 10/05/17 04:00 10/09/17 04:01 10/06/17 04:00 (Chlorhexidine 2% Cloth) 3 pack UNSCH PRN TOPICAL 10/04/17 21:30 10/09/17 21:16 (Lopressor) 25 mg Q12HR PO 10/05/17 09:00 10/06/17 08:11 Nicardipine HCl 25 mg/Sodium Chloride 260 ml @ 52 mls/hr TITRATE PRN IV 10/05/17 06:45 (Pill Splitter) 1 ea UNSCH PRN OTHER 10/05/17 06:45 (Heparin Inj) 5,000 units Q8HR SQ 10/05/17 14:00 10/06/17 13:27 (Mucomyst 20% Liq) 600 mg BID PO 10/05/17 15:00 10/06/17 21:01 10/06/17 08:10 (Norvasc) 5 mg BID PO 10/06/17 09:00 10/06/17 08:11 (Prinivil) 10 mg BID PO 10/06/17 09:00 10/06/17 08:11 Exam I&O / VS 10/06/17 10/06/17 10/07/17 15:00 23:00 07:00 Intake Total 1000 ml Balance 1000 ml IV Total 1000 ml Vital Signs Date Time Temp Pulse Resp B/P (MAP) Pulse Ox O2 Delivery O2 Flow Rate FiO2 10/06/17 14:00 80 6/19/18 12:56 99.3 82 31 188/88 (121) 95 10/06/17 11:12 66 18 194/79 (117) 96 10/06/17 10:00 72 10/06/17 08:01 80 20 199/93 (128) 94 10/06/17 08:00 78 10/06/17 07:32 96 21 10/06/17 07:01 98.4 76 22 196/105 (135) 10/06/17 04:01 98.0 58 19 158/75 (102) 94 10/06/17 04:00 60 10/06/17 03:01 56 18 175/84 (114) 10/06/17 02:01 60 19 160/80 (106) 10/06/17 02:00 58 10/06/17 01:01 58 2 159/68 (98) 10/06/17 00:01 98.0 60 17 163/84 (110) 96 10/06/17 00:00 60 10/05/17 23:00 56 19 160/73 (102) 10/05/17 22:00 62 20 160/75 (103) 10/05/17 22:00 62 10/05/17 21:01 72 18 184/78 (113) 10/05/17 20:00 75 10/05/17 20:00 98.2 82 28 188/83 (118) 10/05/17 19:20 97 21 10/05/17 19:00 74 19 166/87 (113) 96 10/05/17 18:00 74 10/05/17 17:00 82 42 186/86 (119) 96 10/05/17 17:00 82 10/05/17 16:44 97.7 73 7 180/84 (116) 96 General: Alert and Oriented, No acute distress Eye: EOMI Respiratory: Non-labored respirations Musculoskeletal: ROM Neurologic: Alert, Oriented, Normal sensory, Normal motor, CN II-XII intact, Normal DTR's Psychiatric: Cooperative, Appropriate mood & affect Exam Comments Awake alert oriented 3 sitting up in bed pleasant mild disfluency but articulate. Able to name objects able to read repeat name. Extraocular movements intact visual pike full no facial asymmetry tongue midline strength 5 out of 5 upper lower limbs no pronator drift mild ankle swelling Review/Management Diagnosis/Plan: (1) TIA (transient ischemic attack) ICD Codes: G45.9 - Transient cerebral ischemic attack, unspecified Status: Acute Plan: Possible tiny left subcortical infarct resulting in mild disfluency. Fortunately he is overall improving. NIH stroke scale score 1 at best Reviewed the CTAs with the patient. There is no current clinical evidence of vasculitis. ESR is normal he is afebrile as well. These areas look like they are from secondary chronic atherosclerotic stenotic disease States is too claustrophobic to get an MRI scan Recommendations Long-term blood pressure control goal less than 120/80 LDL goal less than 70 Weight loss exercise Antiplatelets. Aspirin plus Plavix. Stop aspirin in 3 months. Follow-up in the outpatient setting Sign off (2) Hypertensive emergency ICD Codes: I16.1 - Hypertensive emergency Status: Acute Plan: Critical care monitoring (3) ADDY on CPAP ICD Codes: G47.33 - Obstructive sleep apnea (adult) (pediatric); Z99.89 - Dependence on other enabling machines and devices Status: Chronic Problem Qualifiers (1) TIA (transient ischemic attack): Qualified Codes: G45.9 - Transient cerebral ischemic attack, unspecified Izaiah Conde MD Oct 06, 2017 16:38
[2017-10-06] MEDS ORDERED: cloNIDine HCL 0.1 MG TAB PO PRN (17:30)
[2017-10-06] MEDS ORDERED: RESP: ALBUTEROL 2.5 MG/IPRATROPIUM 0.5 MG NEB (PRN) NEB (17:30)
--- NOTE | 2017-10-06 17:37 | HHI.PR ---
Subjective Remarks 52-year-old male who is seen today at the request of the critical care team to assume medical management for patient who presented with untreated hypertension, obstructive sleep apnea, intermittent asthma. Patient indicates that he used to be treated for hypertension in the past with lisinopril, however he has not taken anything since 2005 because of unable to see a doctor due to his insurance status. He does have a CPAP machine which is 20 years old and has not had any updated equipment. Patient presented to the emergency department because he started developing dysarthria, difficulty pronouncing words. Patient had workup done which did show a right caudate lacunar CVA. Patient was found to have severe hypertensive emergency and was admitted to the ICU under critical care team. Patient presented with a blood pressure of 276/ 149. Patient was admitted to the ICU with Cardene drip with improvement of his blood pressure. Patient underwent neurological workup with follow-up CT that showed extensive low density in the cerebral white matter concerning for demyelinization, this could be secondary to small vessel ischemic change. Several lacunar infarcts are seen with possible small vessel ischemic changes. Patient did have CTA performed which did show focal stenosis of the distal left vertebral artery and a smooth stenosis in the distal basilar artery there is questionable nodularity in the M1 segment of the middle cerebral arteries concerning for atherosclerotic change. Vasculitis could conceivably have a similar appearance. Carotid ultrasound performed which did not indicate any acute abnormality. Patient unable to perform any MRIs due to his size and claustrophobia. Neurology consultation has been requested awaiting recommendations. Patient has been continued on aspirin daily. Patient does have an LDL of 183, however patient was started on a statin and he is refusing to take it at this time. During the patient's stay he did have significant troponin elevation, cardiology was consulted his recommending myocardial perfusion test for further evaluation. Patient blood pressure did improve on Cardene and thus critical care team transferred service to the hospitalist. Upon seeing the patient today he is resting comfortably. Denies any new complaints. Objective Vitals Vital Signs Date Time Temp Pulse Resp B/P (MAP) Pulse Ox O2 Delivery O2 Flow Rate FiO2 10/06/17 14:00 80 10/06/17 12:56 99.3 82 31 188/88 (121) 95 10/06/17 11:12 66 18 194/79 (117) 96 10/06/17 10:00 72 10/06/17 08:01 80 20 199/93 (128) 94 10/06/17 08:00 78 10/06/17 07:32 96 21 10/06/17 07:01 98.4 76 22 196/105 (135) 10/06/17 04:01 98.0 58 19 158/75 (102) 94 10/06/17 04:00 60 10/06/17 03:01 56 18 175/84 (114) 10/06/17 02:01 60 19 160/80 (106) 10/06/17 02:00 58 10/06/17 01:01 58 2 159/68 (98) 10/06/17 00:01 98.0 60 17 163/84 (110) 96 10/06/17 00:00 60 10/05/17 23:00 56 19 160/73 (102) 10/05/17 22:00 62 20 160/75 (103) 10/05/17 22:00 62 10/05/17 21:01 72 18 184/78 (113) 10/05/17 20:00 75 10/05/17 20:00 98.2 82 28 188/83 (118) 10/05/17 19:20 97 21 10/05/17 19:00 74 19 166/87 (113) 96 10/05/17 18:00 74 I/O 10/05/17 10/05/17 10/05/17 10/06/17 10/06/17 10/06/17 07:00 15:00 23:00 07:00 15:00 23:00 Intake Total 460 ml 100 ml 600 ml 100 ml 1000 ml Output Total 400 ml 945 ml 450 ml Balance 60 ml 100 ml -345 ml -350 ml 1000 ml Intake Oral 200 ml 600 ml 100 ml IV Total 260 ml 100 ml 1000 ml Output Urine Total 400 ml 945 ml 450 ml # Voids 1 1 1 # Bowel Movements 0 0 0 Result Diagram: 10/06/173 10/06/17442 Imaging Last Impressions Neck CTA 10/05/17 0000 Signed Impressions: CONCLUSION: 1. Mild atherosclerotic plaque in the carotid arteries without hemodynamically significant stenosis Head CTA 10/05/17 0000 Signed Impressions: CONCLUSION: Focal stenosis at the distal left vertebral artery and a smooth stenosis at the distal basilar artery. There is also some questionable nodularity in the M1 se gments of the middle cerebral arteries concerning for underlying atheroscleroti c change. Vasculitis could conceivably have a similar appearance. The distal fl ow appears symmetric and within normal limits. Head CT 10/05/17 Signed Impressions: CONCLUSION: 1. No definite acute abnormality is seen. 2. Extensive low density in the cerebral white matter concerning for demyelina tion. This could be secondary to small vessel ischemic change. It is nonspecifi c. 3. Several lacunar infarcts are seen. Given this finding, the possible small v essel ischemic change, and the patient's age, one could consider underlying jassi ology such as vasculitis. Chest X-Ray 10/04/17 Signed Impressions: CONCLUSION: The lungs are clear. Carotid Artery Ultrasound 10/04/17 Signed Impressions: CONCLUSION: 1. Right Internal Carotid Artery: 2. Left Internal Carotid Artery: Objective Remarks GENERAL: Well-developed, well-nourished, in no acute distress. alert and orientated HEENT: Head is normocephalic without any lesions or masses noted. Facial features are symmetric. Eyes: Extraocular muscles are intact. Conjunctivae were clear. NECK: Supple without any masses. Trachea midline no deviation. No JVD, CARDIAC: Regular rhythm, regular rate. S1/S2 are heard. No murmurs gallops or rubs. LUNGS: Clear to auscultation bilaterally. No wheeze, rhonchi or rales. No use of accessory muscles on inspiration or expiration. ABDOMEN: Soft, nontender. Nondistended. Bowel sounds heard in all 4 quadrants. No organomegaly or masses. Negative rebound, negative guarding EXTREMITIES: No edema, pulses are equal bilaterally. No cyanosis or clubbing NEUROLOGY: Mood and affect appear appropriate. Cranial nerves II through XII grossly intact. Moving all extremities, speech is clear Procedures ECHOCARDIOGRAM CONCLUSIONS Very technically difficult study In limited views, the left ventricular systolic function is normal with an estimated ejection fraction in the range of 55-60%. There was limited left ventricular wall motion assessment due to poor endocardial visualization. [id number] mitral valve regurgitation. There is trace tricuspid valve regurgitation. Urinary Catheter: No Vascular Central Line Catheter: No A/P Assessment and Plan Hypertensive emergency -Status post use of Cardene for blood pressure improvement -Amlodipine 5 mg twice daily -Lisinopril 10 mg twice daily -Metoprolol 25 mg twice daily, increase to 50 mg twice daily -Clonidine, labetalol as needed Acute neurological deficit with dysarthria, difficulty pronouncing words, left facial droop -This is all likely secondary to the patient's uncontrolled hypertension and hypertensive emergency -Patient continued on aspirin 81 mg daily -Patient has undergone follow-up CT of the brain which does show extensive low density in the cerebral white matter concerning for demyelinization or small vessel ischemic change. Several lacunar infarcts, possible small vessel ischemic change -Unable do MRIs due to body habitus and claustrophobia -Carotid ultrasound was normal -Echocardiogram had technical difficulty. But ejection fraction 55-60%, mild to moderate atrial valve regurg -EEG: Showed normal EEG -Neurology consulted for further recommendation -PT OT ST evaluations have been performed Elevated troponin, possible non-ST elevated myocardial infarction or could be secondary to hypertensive emergency -Cardiac enzymes were trended and are now trending downward. Troponin change from 0.07 up to 6.86 now down to 2.17 -EKG showing sinus rhythm with right bundle branch block, left ventricular hypertrophy -Cardiology is following the patient -Myocardial perfusion study was requested by the cardiology team -Patient continue on aspirin, beta-ernesto, Nitropaste, statin, PACO inhibitor, calcium channel ernesto Hyperlipidemia -Lipid panel does indicate LDL of 183 -Patient started on Lipitor 10 mg daily, however patient refusing to take medication, increase to Lipitor 40 mg daily Obstructive sleep apnea -Continue O2 to maintain O2 sats greater than 92% -Patient may use own CPAP -Incentive spirometry Hyperglycemia -Hemoglobin A1c 5.5 -Accu-Cheks with sliding scale insulin, patient has not required any insulin use during his stay in the hospital -Discontinue Accu-Cheks and sliding scale insulin DVT prevention -Sequential compression devices -Subcutaneous heparin Naveen Nelson Oct 06, 2017 17:37
[2017-10-06] MEDS: CLOPIDOGREL 75 MG TAB PO SCH (18:37)
[2017-10-06] MEDS: NITROGLYCERIN 2% OINT 1 GM PACKET TOPICAL SCH (18:37)
[2017-10-06] MEDS: METOPROLOL TARTRATE 50 MG TAB PO SCH (21:08)
[2017-10-06] MEDS: ATORVASTATIN 40 MG TAB PO SCH (21:08)
[2017-10-07] VITALS (24 sets, daily range): BP systolic 151–198; BP diastolic 83–108; PULSE 54–82; RESP 18–31; TEMP 97.7–99.8; O2SAT 95–99
[2017-10-07] MEDS: CHLORHEXIDINE GLUCONATE 2 % 1 PACK (2 CLOTHS)(taper/protocol) TOPICAL SCH (04:00)
[2017-10-07 05:27] LABS: AUTOMATED NEUTROPHIL # 5.8 TH/MM3 (1.8-7.7); BASOPHIL # 0.1 TH/MM3 (0-0.2); BASOPHIL % 0.7 % (0.0-2.0); EOSINOPHIL # 0.2 TH/MM3 (0-0.4); HEMOGLOBIN 13.4 GM/DL (13.0-17.0); LYMPH % 24.7 % (9.0-44.0); LYMPHOCYTE # 2.3 TH/MM3 (1.0-4.8); MEAN CELL VOLUME 86.5 FL (80.0-100.0); MEAN CORPUSCULAR HEMOGLOBIN 28.3 PG (27.0-34.0); MEAN CORPUSCULAR HGB CONC 32.7 % (32.0-36.0); MEAN PLATELET VOLUME 9.7 FL (7.0-11.0); MONO % 8.4 % (0.0-8.0); MONOCYTE # 0.8 TH/MM3 (0-0.9); NEUT % 64.2 % (16.0-70.0); PLATELET COUNT 187 TH/MM3 (150-450); RED BLOOD COUNT 4.74 MIL/MM3 (4.50-5.90); RED CELL DISTRIBUTION WIDTH 13.4 % (11.6-17.2); WHITE BLOOD COUNT 9.2 TH/MM3 (4.0-11.0)
[2017-10-07 05:43] LABS: CALCIUM 8.5 MG/DL (8.5-10.1)
[2017-10-07 05:44] LABS: BICARBONATE 25.6 MEQ/L (21.0-32.0); MAGNESIUM 2.2 MG/DL (1.5-2.5)
[2017-10-07 05:47] LABS: CREATININE 1.1 MG/DL (0.60-1.30)
[2017-10-07] MEDS: HEPARIN SODIUM - SQ 10,000 UNITS/ML VIAL SQ SCH ×3 (05:54→23:40)
[2017-10-07] MEDS: NITROGLYCERIN 2% OINT 1 GM PACKET TOPICAL SCH ×2 (05:55)
--- NOTE | 2017-10-07 08:29 | PD.CARD.PN ---
Subjective Subjective Remarks still hypertensive. SBP 150s. Objective Medications Current Medications Medications (Trade) Dose Ordered Sig/Ashley Route Start Time Stop Time Status Last Admin (NS Flush) 2 ml UNSCH PRN IV FLUSH 10/04/17 13:15 (Tylenol) 650 mg Q6H PRN PO 10/04/17 13:15 ([place]otte 5-325 Mg) 1 tab Q4H PRN PO 10/04/17 15:00 (Morphine Inj) 2 mg Q2H PRN IV PUSH 10/04/17 14:45 (Protonix) 40 mg DAILY PO 10/05/17 09:00 10/06/17 08:12 (Tears Naturale Opth Soln) 1 drop TID EACH EYE 10/04/17 18:00 (Zofran Inj) 4 mg Q6H PRN IV PUSH 10/04/17 13:15 ([facility] Information) 1 Q361D XX 10/04/17 13:15 10/04/17 19:15 (Deanna-Colace) 1 tab BID PO 10/04/17 21:00 10/06/17 21:09 (Milk Of Magnesia Liq) 30 ml Q12H PRN PO 10/04/17 13:15 (Senokot) 17.2 mg Q12H PRN PO 10/04/17 13:15 (Dulcolax Supp) 10 mg DAILY PRN RECTAL 10/04/17 13:15 (Lactulose Liq) 30 ml DAILY PRN PO 10/04/17 13:15 (Trandate Inj) 10 mg Q1HR PRN IV PUSH 10/04/17 13:30 10/06/17 17:10 (NS Flush) 2 ml BID IV FLUSH 10/04/17 21:00 10/06/17 21:00 (Aspirin Chew) 81 mg DAILY PO 10/05/17 09:00 10/06/17 08:11 ([facility] Nursing Information) Patient in critical care unit? Ass... Q361D .XX 10/04/17 21:30 10/04/17 21:18 (Chlorhexidine 2% Cloth) 3 pack DAILY@04 TOPICAL 10/05/17 04:00 10/09/17 04:01 10/07/17 04:00 (Chlorhexidine 2% Cloth) 3 pack UNSCH PRN TOPICAL 10/04/17 21:30 10/09/17 21:16 Nicardipine HCl 25 mg/Sodium Chloride 260 ml @ 52 mls/hr TITRATE PRN IV 10/05/17 06:45 (Pill Splitter) 1 ea UNSCH PRN OTHER 10/05/17 06:45 (Heparin Inj) 5,000 units Q8HR SQ 10/05/17 14:00 10/07/17 05:54 (Norvasc) 5 mg BID PO 10/06/17 09:00 10/06/17 21:08 (Lipitor) 40 mg HS PO 10/06/17 21:00 10/06/17 21:08 (Lopressor) 50 mg Q12HR PO 10/06/17 21:00 10/06/17 21:08 (Duoneb Neb) 1 ampule Q4HR NEB PRN NEB 10/06/17 17:30 10/06/17 20:08 (Plavix) 75 mg DAILY PO 10/06/17 18:15 10/06/17 18:37 (Catapres) 0.1 mg Q8HR PRN PO 10/07/17 11:30 UNV (Prinivil) 20 mg BID PO 10/07/17 09:00 UNV Vital Signs / I&O Vital Signs Date Time Temp Pulse Resp B/P (MAP) Pulse Ox O2 Delivery O2 Flow Rate FiO2 10/07/17 08:00 97.7 64 22 166/85 (112) 96 10/07/17 06:06 82 10/07/17 04:18 54 10/07/17 04:00 56 18 152/87 (108) 10/07/17 03:00 56 151/83 (105) 10/07/17 02:55 56 20 173/95 (121) 10/07/17 02:07 57 10/07/17 02:00 60 21 180/91 (120) 10/07/17 01:00 98.6 56 18 184/87 (119) 10/07/17 00:13 65 10/07/17 00:00 56 18 186/97 (126) 10/06/17 23:00 62 18 192/108 (136) 10/06/17 22:00 64 10/06/17 22:00 66 11 167/89 (115) 10/06/17 21:00 66 21 179/95 (123) 10/06/17 20:10 95 21 10/06/17 20:00 99.0 66 21 177/99 (125) 10/06/17 20:00 66 10/06/17 19:00 72 21 173/86 (115) 10/06/17 18:00 76 10/06/17 17:05 98.6 76 0 199/108 (138) 96 10/06/17 16:00 78 10/06/17 15:28 78 24 228/104 (145) 10/06/17 14:37 72 28 186/93 (124) 10/06/17 14:33 74 22 199/88 (125) 10/06/17 14:00 80 10/06/17 13:05 84 28 195/106 (135) 10/06/17 12:56 99.3 82 31 188/88 (121) 95 10/06/17 11:12 66 18 194/79 (117) 96 10/06/17 10:00 72 I/O 10/06/17 10/06/17 10/06/17 10/07/17 10/07/17 10/07/17 07:00 15:00 23:00 07:00 15:00 23:00 Intake Total 100 ml 1000 ml 480 ml 240 ml Output Total 450 ml 1250 ml 600 ml 400 ml Balance -350 ml 1000 ml -770 ml -600 ml -160 ml Intake Oral 100 ml 480 ml 240 ml IV Total 1000 ml Output Urine Total 450 ml 1250 ml 600 ml 400 ml # Voids 1 # Bowel Movements 0 1 Laboratory Laboratory Tests Test 10/07/17 04:55 White Blood Count 9.2 TH/MM3 Red Blood Count 4.74 MIL/MM3 Hemoglobin 13.4 GM/DL Hematocrit 41.0 % Mean Corpuscular Volume 86.5 FL Mean Corpuscular Hemoglobin 28.3 PG Mean Corpuscular Hemoglobin Concent 32.7 % Red Cell Distribution Width 13.4 % Platelet Count 187 TH/MM3 Mean Platelet Volume 9.7 FL Neutrophils (%) (Auto) 64.2 % Lymphocytes (%) (Auto) 24.7 % Monocytes (%) (Auto) 8.4 % Eosinophils (%) (Auto) 2.0 % Basophils (%) (Auto) 0.7 % Neutrophils # (Auto) 5.8 TH/MM3 Lymphocytes # (Auto) 2.3 TH/MM3 Monocytes # (Auto) 0.8 TH/MM3 Eosinophils # (Auto) 0.2 TH/MM3 Basophils # (Auto) 0.1 TH/MM3 CBC Comment DIFF FINAL Differential Comment Blood Urea Nitrogen 20 MG/DL Creatinine 1.10 MG/DL Random Glucose 103 MG/DL Calcium Level 8.5 MG/DL Magnesium Level 2.2 MG/DL Sodium Level 140 MEQ/L Potassium Level 3.7 MEQ/L Chloride Level 108 MEQ/L Carbon Dioxide Level 25.6 MEQ/L Anion Gap 6 MEQ/L Estimat Glomerular Filtration Rate 71 ML/MIN Assessment and Plan Assessment and Plan HTN Emergency NSTEMI suspect type II Chronic uncontrolled HTN Stroke syndrome Elevated Troponin Morbid obesity ADDY Rec: -continue amlodipine 5mg bid, metoprolol 50mg bid -increase lisinopril to 20mg bid and change clonidine 0.1mg tid to standing -if BP> 130 tomorrow, would start spironolactone 25mg daily -Ruperto in progress will follow up with results Edmundo Pollard DO Oct 07, 2017 08:29
[2017-10-07] MEDS: ARTIFICIAL TEARS OPTH SOLN 15 ML BTL EACH EYE SCH ×4 (09:00→17:36)
[2017-10-07] MEDS: DOCUSATE SODIUM 50 MG/SENNA 8.6 MG TAB PO SCH ×2 (09:00→20:08)
[2017-10-07] MEDS: CLOPIDOGREL 75 MG TAB PO SCH (09:54)
[2017-10-07] MEDS: METOPROLOL TARTRATE 50 MG TAB PO SCH ×2 (09:54→20:07)
[2017-10-07] MEDS: PANTOPRAZOLE SOD 40 MG DELAYED RELEASE TAB PO SCH (09:55)
[2017-10-07] MEDS: LISINOPRIL 10 MG TAB PO SCH ×2 (09:55→20:12)
[2017-10-07] MEDS: amLODIPine BESYLATE 5 MG TAB PO SCH ×2 (09:56→20:07)
[2017-10-07] MEDS: ASPIRIN 81 MG CHEW TAB PO SCH (09:56)
[2017-10-07] MEDS: SODIUM CHLORIDE 0.9% FLUSH 10 ML FLUSH IV FLUSH SCH ×2 (09:57→20:08)
--- NOTE | 2017-10-07 10:09 | RADRPT ---
EXAM DATE: 10/07/2017 9:59 AM EDT AGE/SEX: 52 years / Male INDICATIONS:Right Bundle Branch Block. . Abnormal EKG. Left anterior fascicular block. CLINICAL DATA: This is the patient's initial encounter. Patient reports that signs and symptoms have been present for 2 days and indicates a pain score of 3/10. MEDICAL/SURGICAL HISTORY: Hypertension. Asthma. None. COMPARISON: No prior exams available for comparison. DOSE: 30.2 mCi Tc 99m Myoview at stress 30.1 mCi [id number] at rest 0.4 mg Lexiscan STRESS SYMPTOMS: Chest pressure and short of breath. EJECTION FRACTION: 31 % TECHNIQUE: The patient underwent pharmacologic stress with infusion of prescribed dose. Continuous ECG tracing was monitored during stress. Gated SPECT imaging was performed after stress and conventi onal SPECT imaging was performed at rest. The examination was performed on a SPECT/CT scanner, both attenuation and non-corrected datasets were reviewed. FINDINGS: Distribution: The maximum perfused segment at stress is in the inferoseptal wall. Perfusion Study: Left ventricular cavity is dilated on both the stress and rest scans. There is pro minent decreased activity in the anterior septum, septal segments, and lateral segments with decrease in perfusion greater than 50%. On the resting injections scan, there is evidence of partial redistri bution with a moderate increase in activity in these involve segments. Gated Study: On the gated study, there is decreased wall motion in all myocardial segments without e vidence of dyskinetic segments The ejection fraction is decreased at 31%. RISK CATEGORY: High (>3% Annual Morality Rate) CONCLUSION: 1. Abnormal scan demonstrating large size moderate severity partially reversible perfusion defects i nvolving septum, anterior, and lateral segments. There is also dilation of the left ventricular cavit y. Findings suggest either multi vessel disease or cardiomyopathy. 2. Markedly depressed ejection fraction of 31%. No dyskinetic segments seen, however, motion analysi s is compromised due to the decrease in activity in the involved segments. Electronically signed by: Nato Harvey MD 10/07/2017 10:07 AM EDT
--- NOTE | 2017-10-07 13:26 | HHI.PR ---
Subjective Remarks Patient seen and examined today for follow-up on CVA, non-ST elevated myocardial infarction, hypertensive emergency. Patient is sitting in chair when seen today. He still having difficulty with his speech. Blood pressure has shown mild improvement. Patient remains afebrile. Objective Vitals Vital Signs Date Time Temp Pulse Resp B/P (MAP) Pulse Ox O2 Delivery O2 Flow Rate FiO2 10/07/17 12:00 64 21 198/108 (138) 98 10/07/17 12:00 64 10/07/17 11:00 68 26 190/97 (128) 10/07/17 10:00 80 31 189/87 (121) 10/07/17 10:00 80 10/07/17 09:00 74 24 185/93 (123) 10/07/17 08:31 96 21 10/07/17 08:00 97.7 64 22 166/85 (112) 96 10/07/17 08:00 70 10/07/17 08:00 70 24 181/97 (125) 10/07/17 07:00 66 21 170/93 (118) 10/07/17 06:06 82 10/07/17 04:18 54 10/07/17 04:00 56 18 152/87 (108) 10/07/17 03:00 56 151/83 (105) 10/07/17 02:55 56 20 173/95 (121) 10/07/17 02:07 57 10/07/17 02:00 60 21 180/91 (120) 10/07/17 01:00 98.6 56 18 184/87 (119) 10/07/17 00:13 65 10/07/17 00:00 56 18 186/97 (126) 10/06/17 23:00 62 18 192/108 (136) 10/06/17 22:00 64 10/06/17 22:00 66 11 167/89 (115) 10/06/17 21:00 66 21 179/95 (123) 10/06/17 20:10 95 21 10/06/17 20:00 99.0 66 21 177/99 (125) 10/06/17 20:00 66 10/06/17 19:00 72 21 173/86 (115) 10/06/17 18:00 76 10/06/17 17:05 98.6 76 0 199/108 (138) 96 10/06/17 16:00 78 10/06/17 15:28 78 24 228/104 (145) 10/06/17 14:37 72 28 186/93 (124) 10/06/17 14:33 74 22 199/88 (125) 10/06/17 14:00 80 I/O 10/06/17 10/06/17 10/06/17 10/07/17 10/07/17 10/07/17 06:59 14:59 22:59 06:59 14:59 22:59 Intake Total 100 ml 1000 ml 480 ml 240 ml Output Total 450 ml 1250 ml 600 ml 600 ml Balance -350 ml 1000 ml -770 ml -600 ml -360 ml Intake Oral 100 ml 480 ml 240 ml IV Total 1000 ml Output Urine Total 450 ml 1250 ml 600 ml 600 ml # Voids 1 # Bowel Movements 0 1 1 Result Diagram: 10/07/17 0455 10/07/17 0455 Objective Remarks GENERAL: Well-developed, well-nourished, in no acute distress. alert and orientated HEENT: Head is normocephalic without any lesions or masses noted. Facial features are symmetric. Eyes: Extraocular muscles are intact. Conjunctivae were clear. NECK: Supple without any masses. Trachea midline no deviation. No JVD, CARDIAC: Regular rhythm, regular rate. S1/S2 are heard. No murmurs gallops or rubs. LUNGS: Clear to auscultation bilaterally. No wheeze, rhonchi or rales. No use of accessory muscles on inspiration or expiration. ABDOMEN: Soft, nontender. Nondistended. Bowel sounds heard in all 4 quadrants. No organomegaly or masses. Negative rebound, negative guarding EXTREMITIES: No edema, pulses are equal bilaterally. No cyanosis or clubbing NEUROLOGY: Mood and affect appear appropriate. Moving all extremities, patient still having speech disfluency Procedures ECHOCARDIOGRAM CONCLUSIONS Very technically difficult study In limited views, the left ventricular systolic function is normal with an estimated ejection fraction in the range of 55-60%. There was limited left ventricular wall motion assessment due to poor endocardial visualization. [id number] mitral valve regurgitation. There is trace tricuspid valve regurgitation. Urinary Catheter: No Vascular Central Line Catheter: No A/P Assessment and Plan Hypertensive emergency -Status post use of Cardene for blood pressure improvement -Amlodipine 5 mg twice daily -Lisinopril 10 mg twice daily, increased to 20 mg twice daily -Metoprolol 50 mg twice daily -Clonidine, labetalol as needed Acute neurological deficit with dysarthria, difficulty pronouncing words, left facial droop -This is all likely secondary to the patient's uncontrolled hypertension and hypertensive emergency -Patient continued on aspirin 81 mg daily -Patient has undergone follow-up CT of the brain which does show extensive low density in the cerebral white matter concerning for demyelinization or small vessel ischemic change. Several lacunar infarcts, possible small vessel ischemic change -Unable do MRIs due to body habitus and claustrophobia -Carotid ultrasound was normal -Echocardiogram had technical difficulty. But ejection fraction 55-60%, mild to moderate atrial valve regurg -EEG: Showed normal EEG -Neurology consulted for further recommendation -PT OT ST evaluations have been performed -Recommend continuation of aspirin/Plavix. Stop aspirin in 3 months Elevated troponin, possible non-ST elevated myocardial infarction or could be secondary to hypertensive emergency -Cardiac enzymes were trended and are now trending downward. Troponin change from 0.07 up to 6.86 now down to 2.17 -EKG showing sinus rhythm with right bundle branch block, left ventricular hypertrophy -Cardiology is following the patient -Myocardial perfusion study was performed and indicated large size moderate severity of partially reversible perfusion defect with ejection fraction 31%., High risk -We will defer to cardiology need for cardiac catheterization -Patient continue on aspirin, beta-ernesto, Nitropaste, statin, PACO inhibitor, calcium channel ernesto Hyperlipidemia -Lipid panel does indicate LDL of 183 -Continue high-dose Lipitor 40 mg daily Obstructive sleep apnea -Continue O2 to maintain O2 sats greater than 92% -Patient may use own CPAP -Incentive spirometry Hyperglycemia -Hemoglobin A1c 5.5 -Discontinued Accu-Cheks and sliding scale insulin DVT prevention -Sequential compression devices -Subcutaneous heparin Naveen Nelson Oct 07, 2017 13:26
[2017-10-07] MEDS: ATORVASTATIN 40 MG TAB PO SCH (20:07)
[2017-10-07] MEDS: LABETALOL HCL 100 MG/20 ML VIAL IV PUSH PRN ×3 (21:35→23:40)
[2017-10-07] MEDS: cloNIDine HCL 0.1 MG TAB PO PRN (21:36)
[2017-10-08] VITALS (19 sets, daily range): BP systolic 137–231; BP diastolic 66–127; PULSE 53–78; RESP 16–18; TEMP 97.7–98.6; O2SAT 94–98
[2017-10-08] MEDS ORDERED: SODIUM CHLOR 0.9% 1000 ML INJ 1,000 ML IV SCH (01:45)
[2017-10-08] MEDS: CHLORHEXIDINE GLUCONATE 2 % 1 PACK (2 CLOTHS)(taper/protocol) TOPICAL SCH (04:00)
[2017-10-08] MEDS: LABETALOL HCL 100 MG/20 ML VIAL IV PUSH PRN ×2 (04:19→06:00)
[2017-10-08] MEDS: cloNIDine HCL 0.1 MG TAB PO PRN (05:59)
[2017-10-08] MEDS: HEPARIN SODIUM - SQ 10,000 UNITS/ML VIAL SQ SCH (05:59)
--- NOTE | 2017-10-08 07:39 | PD.CARD.PN ---
Subjective Subjective Remarks Patient is doing well with no complaints. Agreeable for heart catheterization today, all questions answered. BP remains not well controlled (Shreyas Oleary) Objective Medications Current Medications Medications (Trade) Dose Ordered Sig/Ashley Route Start Time Stop Time Status Last Admin (NS Flush) 2 ml UNSCH PRN IV FLUSH 10/04/17 13:15 (Tylenol) 650 mg Q6H PRN PO 10/04/17 13:15 (Rowley 5-325 Mg) 1 tab Q4H PRN PO 10/04/17 15:00 (Morphine Inj) 2 mg Q2H PRN IV PUSH 10/04/17 14:45 (Protonix) 40 mg DAILY PO 10/05/17 09:00 10/07/17 09:55 (Tears Naturale Opth Soln) 1 drop TID EACH EYE 10/04/17 18:00 (Zofran Inj) 4 mg Q6H PRN IV PUSH 10/04/17 13:15 [place] [place] [facility] [facility] [place] 1 Q361D XX 10/04/17 13:15 10/04/17 19:15 (Deanna-Colace) 1 tab BID PO 10/04/17 21:00 10/06/17 21:09 (Milk Of Magnesia Liq) 30 ml Q12H PRN PO 10/04/17 13:15 (Senokot) 17.2 mg Q12H PRN PO 10/04/17 13:15 (Dulcolax Supp) 10 mg DAILY PRN RECTAL 10/04/17 13:15 (Lactulose Liq) 30 ml DAILY PRN PO 10/04/17 13:15 (Trandate Inj) 10 mg Q1HR PRN IV PUSH 10/04/17 13:30 10/08/17 06:00 (NS Flush) 2 ml BID IV FLUSH 10/04/17 21:00 10/07/17 20:08 (Aspirin Chew) 81 mg DAILY PO 10/05/17 09:00 10/07/17 09:56 [place] [place] [facility] [place] Patient in critical care unit? Ass... Q361D .XX 10/04/17 21:30 10/04/17 21:18 (Chlorhexidine 2% Cloth) 3 pack DAILY@04 TOPICAL 10/05/17 04:00 10/09/17 04:01 10/07/17 04:00 (Chlorhexidine 2% Cloth) 3 pack UNSCH PRN TOPICAL 10/04/17 21:30 10/09/17 21:16 Nicardipine HCl 25 mg/Sodium Chloride 260 ml @ 52 mls/hr TITRATE PRN IV 10/05/17 06:45 (Pill Splitter) 1 ea UNSCH PRN OTHER 10/05/17 06:45 (Heparin Inj) 5,000 units Q8HR SQ 10/05/17 14:00 10/08/17 05:59 (Norvasc) 5 mg BID PO 10/06/17 09:00 10/07/17 20:07 (Lipitor) 40 mg HS PO 10/06/17 21:00 10/07/17 20:07 (Lopressor) 50 mg Q12HR PO 10/06/17 21:00 10/07/17 20:07 (Duoneb Neb) 1 ampule Q4HR NEB PRN NEB 10/06/17 17:30 10/06/17 20:08 (Plavix) 75 mg DAILY PO 10/06/17 18:15 10/07/17 09:54 (Catapres) 0.1 mg Q8HR PRN PO 10/07/17 11:30 10/08/17 05:59 (Prinivil) 20 mg BID PO 10/07/17 09:00 10/07/17 20:12 Sodium Chloride 1,000 ml @ 30 mls/hr Q24H IV 10/08/17 01:45 (Aldactone) 25 mg DAILY PO 10/08/17 09:00 UNV Vital Signs / I&O Vital Signs Date Time Temp Pulse Resp B/P (MAP) Pulse Ox O2 Delivery O2 Flow Rate FiO2 10/08/17 07:00 98.5 64 18 196/109 (138) 98 10/08/17 04:42 98.0 61 176/100 (125) 96 10/08/17 00:41 98.0 65 231/127 (161) 96 10/07/17 23:26 62 10/07/17 22:00 65 10/07/17 20:00 98.7 74 21 178/94 (122) 99 10/07/17 20:00 75 10/07/17 19:30 95 21 10/07/17 18:00 78 10/07/17 16:00 99.8 10/07/17 16:00 70 10/07/17 14:00 68 10/07/17 12:00 98.8 10/07/17 12:00 64 21 198/108 (138) 98 10/07/17 12:00 64 10/07/17 11:00 68 26 190/97 (128) 10/07/17 10:00 80 31 189/87 (121) 10/07/17 10:00 80 10/07/17 09:00 74 24 185/93 (123) 10/07/17 08:31 96 21 10/07/17 08:00 97.7 64 22 166/85 (112) 96 10/07/17 08:00 70 10/07/17 08:00 70 24 181/97 (125) I/O 10/07/17 10/07/17 10/07/17 10/08/17 10/08/17 10/08/17 07:00 15:00 23:00 07:00 15:00 23:00 Intake Total 240 ml 960 ml 100 ml Output Total 600 ml 600 ml 1725 ml 350 ml Balance -600 ml -360 ml -765 ml -250 ml Intake Oral 240 ml 960 ml 100 ml Output Urine Total 600 ml 600 ml 1725 ml 350 ml # Bowel Movements 1 0 Physical Exam GENERAL: Well-developed well-nourished. Obese. In no acute distress. NECK: No carotid bruits. No JVD. CARDIOVASCULAR: Regular rate and rhythm. No murmur appreciated. RESPIRATORY: No accessory muscle use. Clear to auscultation. Breath sounds equal bilaterally. MUSCULOSKELETAL: No clubbing or cyanosis. No edema. Hyperpigmented skin changes bilateral ankles. NEUROLOGICAL: Awake and alert. Normal speech. Imaging Last Impressions Myocardial Perfusion Scan Nuc Med 10/06/17 0000 Signed Impressions: CONCLUSION: 1. Abnormal scan demonstrating large size moderate severity partially reversib le perfusion defects involving septum, anterior, and lateral segments. There is also dilation of the left ventricular cavity. Findings suggest either multi ve ssel disease or cardiomyopathy. 2. Markedly depressed ejection fraction of 31%. No dyskinetic segments seen, h owever, motion analysis is compromised due to the decrease in activity in the i nvolved segments. Neck CTA 10/05/17 0000 Signed Impressions: CONCLUSION: 1. Mild atherosclerotic plaque in the carotid arteries without hemodynamically significant stenosis Head CTA 10/05/17 Signed Impressions: CONCLUSION: Focal stenosis at the distal left vertebral artery and a smooth stenosis at the distal basilar artery. There is also some questionable nodularity in the M1 se gments of the middle cerebral arteries concerning for underlying atheroscleroti c change. Vasculitis could conceivably have a similar appearance. The distal fl ow appears symmetric and within normal limits. Head CT 10/05/17 Signed Impressions: CONCLUSION: 1. No definite acute abnormality is seen. 2. Extensive low density in the cerebral white matter concerning for demyelina tion. This could be secondary to small vessel ischemic change. It is nonspecifi c. 3. Several lacunar infarcts are seen. Given this finding, the possible small v essel ischemic change, and the patient's age, one could consider underlying jassi ology such as vasculitis. Chest X-Ray 10/04/17 Signed Impressions: CONCLUSION: The lungs are clear. Carotid Artery Ultrasound 10/04/17 Signed Impressions: CONCLUSION: 1. Right Internal Carotid Artery: 2. Left Internal Carotid Artery: (Shreyas Oleary) Assessment and Plan Assessment and Plan 52-year-old male with a past medical history of asthma, ADDY on CPAP, untreated hypertension who presented for difficulty speaking. Patient states that 10:10 AM yesterday he noticed problems speaking. He also noticed yesterday evening that he had a hard time with his dexterity in typing on his laptop. Patient has not seen a physician in many years due to lack of insurance, was previously treated for high blood pressure at the time. His systolic blood pressures have been up in the 270s and he was on nicardipine drip overnight, which has currently been held. The patient's initial troponin was checked and found to be 0.07, elevated to 1.4 overnight. EKG shows sinus tachycardia rate 109, bifascicular block with right bundle branch block and left anterior fascicular block, no prior EKG for comparison. The patient denies any chest pain. He has noticed some dyspnea on exertion over the past several years with associated palpitations. Hypertensive emergency: Secondary to medical nonadherence. Slowly improving. On lisinopril 20 mg twice daily, amlodipine 5 mg twice daily, metoprolol 50 mg twice daily. BP still not well controlled, start spironolactone 25 mg daily. Clonidine as needed and and nicardipine gtt prn SBP >200. Continue to titrate BP meds as indicated. Elevated troponin: 0.07->6.86->2.17. Myocardial perfusion scan showed large sized moderate severity partially reversible perfusion defects involving the septum, anterior, and lateral segments. Plan for cardiac catheterization today. Stroke syndrome: Neurology consulted, recommended aspirin, Plavix, and BP control Morbid obesity: Recommended lifestyle modifications. (Shreyas Oleary) Assessment and Plan [facility] - severe CAD. LM, LAD, LCx, and RCA disease CABG consult add hydralazine for BP control (Wu Ortiz MD) Shreyas Oleary Oct 08, 2017 07:39 Wu Ortiz MD Oct 08, 2017 09:10
[2017-10-08] MEDS ORDERED: cloNIDine HCL 0.1 MG TAB PO PRN (07:45)
[2017-10-08] MEDS: ARTIFICIAL TEARS OPTH SOLN 15 ML BTL EACH EYE SCH ×3 (09:00→17:46)
[2017-10-08] MEDS: DOCUSATE SODIUM 50 MG/SENNA 8.6 MG TAB PO SCH ×2 (09:00→21:00)
[2017-10-08] MEDS ORDERED: MISC INFORMATION XX ONE (09:15)
[2017-10-08] MEDS ORDERED: BACITRACIN OINT 0.9 GM PKT TOP ONE (09:15)
--- NOTE | 2017-10-08 09:22 | CATHPROC ---
[email or web address] HIS Report Study Information Study Number Admission Scheduled Start Study Start [id number] Oct 04 2017 1:19PM 10/07/2017 Oct 08 2017 7:57AM [place] [facility] Cardiac Catheterization Admit Source Facility Department Emergency department [facility] - Med Aide Physician and Clinical Staff Initial Wu [place] Supervisor Abigail PichardoRN Recorder Desiree Lopez BSN Scrub Luke MonetRT(R) Procedures Performed Procedure Location (Site) Vessel Name Coronary Angiograms LCA Left Coronary Coronary Angiograms RCA Right Coronary Coronary Angiograms CONN CONN L Heart Cath Equipment Time Any Commodity Buyer Description Size Mfg Part Number Used/Scraped TRANSDUCER, TRUWAVE [id number] 08:39 FRANCISCO VERAS * Used W/STOCKCOCK *[id number] *[id number] 08:39 [employer] BLANKET,WARM AIR CCL * Used *[id number] 08:39 [employer] PACK, CCL CUSTOM * Used *[id number] 08:39 [employer] SUPPORT, ARTERIAL ADULT [id number] *[id number] Used [id number] 08:39 [employer] PACER PEN, SKIN DUAL W/ RULER * Used *[id number] 08:42 [employer] JL 3.5 DXTERITY CATHETER FR 5 Used *[id number] BAND, RADIAL COMPRESSION TR [id number] 09:11 Huddle 29CM Used LARGE 29 *[id number] SHEATH, FR6 RADIAL PRELUDE 08:39 [employer] FR 6 [id number] Used EASE 11CM [id number] 08:39 [employer] WIRE, EXCHANGE 260CM 3MMJ 260CM Used *[id number] 08:39 NAMIC MANIFOLD, 4 PORT * Used *[id number] 08:39 [employer] OMNIPAQUE, 350 MG, 150ML 150ML [id number] Used History: Current Medications Medication Dosage/Unit Route Frequency Last Date/Time Taken ASA 81 mg Statins (any) PLAVIX 75 mg Beta Aly NORVASC History: Allergies Allergy Reaction No Known Allergies History: Risk Factors Family History of Hypertension Dyslipidemia Previous MD Previous Heart Failure Premature CAD Yes No Yes No No Prior Valve Prior PCI Prior CABG Surgery No No No Cerebrovascular Peripheral Artery Chronic Lung On Dialysis Diabetes Disease Disease Disease No Yes No Yes No History: Stress Tests Stress or Imaging Studies Performed Yes Stress Test SPECT Stress Test SPECT Result Stress Test SPECT Ischemia Risk/Extent Yes Positive High History: Other Disease Selection Items HTN Stroke History: Other Current Smoker No Labs Hgb (g/dl) Hct (%) WBC (l/cumm) Platelets (thousands) 11.60-17.00 35.00-51.00 4.00-11.00 150.00-450.00 13.4 41 9.2 187 Glucose (mg/dl) BUN (mg/dl) Creatinine (mg/dl) BUN:Creatinine (1:x) 74.00-106.00 7.00-18.00 0.50-1.30 10.00-20.00 103 20 1.1 18.2 Na (meq/l) K (meq/l) 136.00-145.00 3.50-5.10 140 3.7 INR (PTT:PT) 0.90-1.10 1.1 Troponin I (ng/ml) CPK (u/l) CPK-MB (ng/ML) 0.02-0.05 26.00-308.00 0.50-3.60 2.17 146 Not Drawn Medication Medication Total Dose (Bolus/Oral) Medication Total Dosage/Unit 1% XYLOCAINE 10 mL FENTANYL 50 mcg HEPARIN 5000 units HYDRALAZINE 20 mg RADIAL COCKTAIL 5 mL (Bolus) VERSED 1 mg Medications (Bolus/Oral) Medication Time Given Dosage/Unit Administered By Reason VERSED 10/08/2017 8:44:54 AM 1 mg Abigail Pichardo 1 mg VERSED given in lab by Abigail Pichardo, RN via Peripheral IV. Ordered by Wu Ortiz. FENTANYL 10/08/2017 8:45:59 AM 50 mcg Abigail Pichardo 50 mcg FENTANYL given in lab by Abigail Pichardo, RN via Peripheral IV. Ordered by Wu Ortiz. 1% XYLOCAINE 10/08/2017 8:49:06 AM 10 mL Wu Ortiz 10 mL 1% XYLOCAINE given in lab by Wu Ortiz via Subcutaneous. Ordered by Wu Ortiz. RADIAL COCKTAIL 10/08/2017 8:50:59 AM 5 mL (Bolus) Wu Ortiz 5 mL (Bolus) RADIAL COCKTAIL given in lab by Wu Ortiz via Radial. Using [Solution Name]. Ordere d by Wu Ortiz. Reason: Ntg 200mcg HEPARIN 10/08/2017 8:53:52 AM 5000 units Abigail Pichardo 5000 units HEPARIN given in lab by Abigail Pichardo, RN via Peripheral IV. Ordered by Wu Ortiz. HYDRALAZINE 10/08/2017 9:11:01 AM 20 mg Abigail Pichardo 20 mg HYDRALAZINE given in lab by Abigail Pichardo, RN via Peripheral IV. Ordered by Wu Ortiz. Medication (Drip) Medication Time Given Dosage/Unit Concentration/Unit Diluent (ml) Solution IV Solutions 10/08/2017 8:30:31 AM 50 mL (IV) NaCl .9 IV Solutions given in lab by Wu Ortiz via Peripheral IV. Pump/Drip Flow using NaCl .9. Ordered by Wu Ortiz. Initial Case Assessment Cardiovascular HR Rhythm NIBP Chest Pain 63 sr 193/111 0 Edema Present Skin color Skin None Normal Warm Dry Circulatory - Right Pulses Dorsalis Pedis Femoral Radial 2 1 2 Scale (0,1,2,3,4,d) Scale (0,1,2,3,4,d) Circulatory - Lower Extremities Color Lower Right Color Lower Left Normal Normal Neurological State Oriented to time-place- Alert Moves all extremities person Respiration - General Respiration Rate SpO2 (%) (B/min) 24 93 Final Case Assessment Cardiovascular HR Rhythm NIBP Chest Pain 65 sr 193/116 0 Edema Present Skin color Skin None Normal Warm Dry Circulatory - Right Pulses Dorsalis Pedis Femoral Radial 2 1 2 Scale (0,1,2,3,4,d) Scale (0,1,2,3,4,d) Circulatory - Lower Extremities Color Lower Right Color Lower Left Normal Normal Neurological State Oriented to time-place- Alert Moves all extremities person Respiration - General Respiration Rate SpO2 (%) (B/min) 19 97 Chronological Log Time Study Chronological Log 8:10:15 Patient arrived via Bed. 8:11:19 Patient Name, D.O.B, / Armband Verified By R.N. 8:11:21 Consent signed by the physician and the patient and verified by the Med Aide staff. 8:11:22 Pre-op and post- op instructions given; patient acknowledges understanding of instructions. 8:11:26 Allens test performed on the right radial and ulnar artery. 8:11:29 Patient has been NPO for More than 6Hrs. 8:11:33 Skin Breakdown- none per patient 8:20:05 A # 20 IV was noted in the Forearm (right). Grade = 0 8:20:12 A # 20 IV was noted in the Antecubital (right). Grade = 0 Vitals capture started with the following parameters, Patient=Adult, Interval=5 min, Initial Pr pbwogj=435 mmHg, 8:27:02 Deflation Rate=5 mmHg, Cuff placed on Right Ankle 8:27:15 Connor Prominences Protected 8:27:17 A # 20 IV was noted in the Antecubital (right). Grade = 0 0.9% NaCl @ KVO 8:27:39 A # 20 IV was noted in the Forearm (right). Grade = 0 moved more laterally and redressed for radial approach access 8:28:11 History and physical on the chart. 8:28:30 HR=63 bpm, WMZZ=313/111 mmhg, SpO2=93.0 %, Resp=24 B/min Assessment: Initial Case, HR=63 BPM, Rhythm=sr, BQVF=342/111 mmhg, Chest Pain=0, Edema=None, Col or=Normal, Skin = Warm, Dry Right Pulses: Tae Ped=2, Femoral=1, Radial=2 8:28:38 Lower Right Extremities: Color=Normal Lower Left Extremities: Color=Normal Neurological: State=Alert, Ox3, FIELDS Respiration: Resp=24 B/min, SpO2=93 % IV Solutions given in lab by Wu Ortiz via Peripheral IV. Pump/Drip Flow using NaCl .9. Ord ered by Angel, 8:30:31 Wu. 8:33:37 HR=64 bpm, RDET=493/129 mmhg, SpO2=97.0 %, Resp=14 B/min, Pain=0, Gayatri=10, Trevino=2 8:35:01 paged 8:36:11 MD responded 8:36:51 Pressure channel 1 zeroed. 8:37:53 HR=62 bpm, AXPX=160/114 mmhg, SpO2=97.0 %, Resp=11 B/min, Pain=0, Gayatri=10, Trevino=2 8:38:52 Right Radial and groin(s) prepped with 2% chlorhexidine, and draped after a 3 min. waiting t tyrone. 8:41:48 MD arrived. 8:42:52 HR=61 bpm, YGLB=570/118 mmhg, SpO2=97.0 %, Resp=15 B/min, Pain=0, Gayatri=10, Trevino=2 8:44:54 1 mg VERSED given in lab by Abigail Pichardo, RN via Peripheral IV. Ordered by Wu Ortiz . 8:45:59 50 mcg FENTANYL given in lab by Abigail Pichardo, RN via Peripheral IV. Ordered by Travis Ortiz. Time Out. Correct patient, correct procedure, correct physician, labs, allergies, and equipment verified with cardiac catheterization technician 8:47:18 team present. Fire risk assesment completed (see hard stop sheet for coding). Time Out Concu rred by MD and individual staff in procedure. 8:48:30 HR=60 bpm, STLA=829/110 mmhg, SpO2=97.0 %, Resp=10 B/min 8:48:31 Reference ECG taken 8:48:34 Case Start 8:49:06 10 mL 1% XYLOCAINE given in lab by Wu Ortiz via Subcutaneous. Ordered by Socorro Ortiz 8:50:36 Access site was Radial Artery. A SHEATH, FR6 RADIAL PRELUDE EASE 11CM FR 6 was advanced into the Radial (right) using the Davidu katiuska 8:50:48 technique. 5 mL (Bolus) RADIAL COCKTAIL given in lab by Wu Ortiz via Radial. Using [Solution Name]. O rdered by Angel 8:50:59 Wu. Reason: Ntg 200mcg A JR 5.0 INFINITI CATHETER FR 5 was advanced over a wire. OMNIPAQUE, 350 MG, 150ML 150ML was use d for 8:51:01 injections. Recorded Pressure: Ao, HR=62, Condition=Condition 1 8:51:59 (Aorta) Ao 168/102/130 8:52:48 HR=60 bpm, DTNN=935/100 mmhg, SpO2=94.0 %, Resp=6 B/min, Pain=0, Gayatri=10, Trevino=2 8:53:10 The RCA was injected and visualized at various angles. OMNIPAQUE, 350 MG, 150ML 150ML used. 8:53:52 5000 units HEPARIN given in lab by Abigail Pichardo, JOEL via Peripheral IV. Ordered by Minor, Wu. After removing the current catheter a JL 3.5 DXTERITY CATHETER FR 5 was advanced over a WIRE, EX CHANGE 260CM 8:54:47 3MMJ 260CM. 8:57:51 HR=67 bpm, EVMV=766/103 mmhg, SpO2=95.0 %, Resp=12 B/min After removing the current catheter a JL 5.0 INFINITI CATHETER FR 5 was advanced over a WIRE, EX CHANGE 260CM 8:58:48 3MMJ 260CM. 9:00:49 The LCA was injected and visualized at various angles. OMNIPAQUE, 350 MG, 150ML 150ML used. 9:02:52 HR=67 bpm, IARW=345/108 mmhg, SpO2=95.0 %, Resp=12 B/min, Pain=0, Gayatri=10, Trevino=2 9:04:06 The CONN was injected and visualized at various angles. OMNIPAQUE, 350 MG, 150ML 150ML used. 9:05:09 Catheter was removed 9:07:51 HR=69 bpm, AZAY=013/116 mmhg, SpO2=95.0 %, Resp=11 B/min, Pain=0, Gayatri=10, Trevino=2 9:08:06 No case complications noted. 9:08:06 Cine recording checked. 9:08:21 Case End (Physician broke scrub) 9:09:09 Bedside Report will be given. 9:09:10 CIC called. Spoke to Dora Assessment: Final Case, HR=65 BPM, Rhythm=sr, GRAH=317/116 mmhg, Chest Pain=0, Edema=None, Col or=Normal, Skin = Warm, Dry Right Pulses: Tae Ped=2, Femoral=1, Radial=2 9:10:16 Lower Right Extremities: Color=Normal Lower Left Extremities: Color=Normal Neurological: State=Alert, Ox3, FIELDS Respiration: Resp=19 B/min, SpO2=97 % 9:11:01 20 mg HYDRALAZINE given in lab by Abigail Pichardo RN via Peripheral IV. Ordered by Wu Ortiz. 9:11:20 A Left Heart Cath was performed. 9:12:54 HR=66 bpm, DDVI=224/115 mmhg, SpO2=96.0 %, Resp=15 B/min, Pain=0, Gayatri=10, Trevino=2 Radial Compression Device Used. 13 mLs of air placed in BAND, RADIAL COMPRESSION TR LARGE 29 2 9CM. Affected 9:15:43 hand 98 % O2 saturation. 9:17:53 HR=68 bpm, ESJF=414/106 mmhg, SpO2=98.0 %, Pain=0, Gayatri=10, Trevino=2 9:23:32 Patient moved to stretcher End Study - Contrast Media Used In Study Contrast Total Opened (mL) Total Used (mL) Total Wasted (mL) Omnipaque 50 50 0 End Study - Maximum Contrast Load Max Contrast Load (mL) 703.7 End Study - Radiation Exposure Fluoro Time (minutes) 3.7 End Study - Patient Disposition Complications Transferred To Telemetry Bed
--- NOTE | 2017-10-08 09:45 | MA ---
cc: Wu Ortiz MD DATE: 10/08/2017 INDICATION: Non-ST elevation myocardial infarction. PROCEDURES PERFORMED: 1. Fluoroscopy with interpretation. 2. Coronary angiography. 3. Left upper extremity angiography. METHOD: Risks, benefits and alternatives discussed with the patient. The patient understood and consented to the procedure. PROCEDURE IN DETAIL: The patient was brought into catheterization labs, placed on the catheterization table. The right wrist was prepped and draped in a sterile fashion. The right wrist was anesthetized with 2 percent lidocaine. The right radial artery was cannulated and a 6-Namibian 7 cm sheath was placed without difficulty. CORONARY ANGIOGRAPHY: 1. Left main coronary has a 90 percent stenosis. It is short, but there is dampening upon engagement with the catheter. 2. Left anterior descending coronary has mild to moderate luminal irregularities proximally. In the mid segment, there appears to be 75 percent stenosis just prior to the bifurcation of a small to moderate sized diagonal branch. The remainder of the left anterior descending coronary has minor luminal irregularities. 3. Left circumflex has mild luminal irregularities proximally. First obtuse marginal branch is of moderate caliber size and has 80 percent stenosis proximally. The second obtuse marginal branch is a very large caliber size and at the bifurcation of the left circumflex distally around the AV groove, there appears to be a 75 percent stenosis. 4. Right coronary is a dominant vessel, but gives rise to a small posterior descending branch. The mid distal right coronary has 90 percent stenosis. LEFT UPPER EXTREMITY ANGIOGRAPHY: The left subclavian and left internal mammary appeared to be patent. CONCLUSION: Severe multivessel coronary artery disease involving the left main coronary artery. PLAN: We will consult cardiothoracic surgery for consideration of bypass surgery. We will need to titrate his antihypertensives for better blood pressure control. Wu Ortiz MD GEN/DL , 09:18 AM , 09:42 AM
[2017-10-08] MEDS: PANTOPRAZOLE SOD 40 MG DELAYED RELEASE TAB PO SCH (10:07)
[2017-10-08] MEDS: LISINOPRIL 10 MG TAB PO SCH ×2 (10:07→21:34)
[2017-10-08] MEDS: ASPIRIN 81 MG CHEW TAB PO SCH (10:07)
[2017-10-08] MEDS: hydrALAZINE HCL 100 MG TAB PO SCH ×2 (10:07→17:28)
[2017-10-08] MEDS: SPIRONOLACTONE 25 MG TAB PO SCH (10:07)
[2017-10-08] MEDS: CLOPIDOGREL 75 MG TAB PO SCH (10:08)
[2017-10-08] MEDS: SODIUM CHLORIDE 0.9% FLUSH 10 ML FLUSH IV FLUSH SCH ×2 (10:08→21:36)
[2017-10-08] MEDS: amLODIPine BESYLATE 5 MG TAB PO SCH ×2 (10:09→21:35)
[2017-10-08] MEDS: LABETALOL HCL 300 MG TAB PO SCH ×2 (10:10→21:35)
--- NOTE | 2017-10-08 12:31 | PD.CONS ---
History of Present Illness Service CT Surgery Consult Requested By Dr. Ortiz Reason for Consult NSTEMI, left main and multivessel CAD Primary Care Physician No Primary Care Physician Diagnoses: (1) NSTEMI (non-ST elevated myocardial infarction) (2) CAD (coronary artery disease) (3) Cerebrovascular accident, old (4) Hypertensive emergency (5) TIA (transient ischemic attack) History of Present Illness This is a 52-year-old male. The admission 10/04/2017. Past medical history includes untreated hypertension, elevated BMI greater than 48, obstructive sleep apnea on CPAP, mild intermittent asthma. Patient has not seen a doctor/physicist 2005. He states his blood pressure last few checks has been quite elevated with diastolic blood pressure in the 120s. His CPAP machine is over 20 years old. He presents to [facility] with the following story. At approximately 1010, [place] had acute onset of dysarthria. He had difficulty pronouncing words. No focal weakness including headache, vision changes, focal weakness or neuropathy. Denies any recent head trauma or surgeries. CT the brain revealed old right caudate lacunar CVA. Baseline laboratories were essentially within normal limits including BMP and CBC. He ruled-in for NSTEMI with troponin elevation and underwent Lexiscan stress test which was positive for ischemia. LHC today reveals left main and 3 vessel CAD. He is being considered for CABG. Review of Systems Constitutional: COMPLAINS OF: Diaphoretic episodes, Fatigue, DENIES: Fever, Weight gain, Weight loss, Chills, Dizziness, Change in appetite, Night Sweats Eyes: DENIES: Blurred vision, Diplopia, Eye inflammation, Eye pain, Vision loss , Photosensitivity, Double Vision Ears, nose, mouth, throat: DENIES: Tinnitus, Hearing loss, Vertigo, Nasal discharge, Oral lesions, Throat pain, Hoarseness, Ear Pain, Running Nose, Epistaxis, Sinus Pain, Toothache, Odynophagia Respiratory: COMPLAINS OF: Cough Cardiovascular: COMPLAINS OF: Dyspnea on Exertion, Lower Extremity Edema, DENIES: Chest pain, Palpitations, Syncope, PND, Orthopnea, Claudication Gastrointestinal: DENIES: Abdominal pain, Black stools, Bloody stools, Constipation, Diarrhea, Nausea, Vomiting, Difficulty Swallowing, Anorexia Genitourinary: DENIES: Sexual dysfunction, Urinary frequency, Urinary incontinence, Urgency, Hematuria, Dysuria, Nocturia, Penile Discharge, Testicular Pain, Testicular Swelling Musculoskeletal: COMPLAINS OF: Muscle aches, DENIES: Joint pain, Stiffness, Joint Swelling, Back pain, Neck pain Integumentary: DENIES: Abnormal pigmentation, Nail changes, Pruritus, Rash Hematologic/lymphatic: DENIES: Bruising, Lymphadenopathy Immunologic/allergic: DENIES: Eczema, Urticaria Neurologic: COMPLAINS OF: Speech Problems, DENIES: Abnormal gait, Headache, Localized weakness, Paresthesias, Seizures, Tremor, Poor Balance Psychiatric: DENIES: Anxiety, Confusion, Mood changes, Depression, Hallucinations, Agitation, Suicidal Ideation, Homicidal Ideation, Delusions Past Family Social History Allergies: Coded Allergies: No Known Allergies (Unverified , 10/04/17) Past Medical History Past Medical History Essential hypertension Elevated BMI Obstructive sleep apnea on CPAP Mild intermittent asthma Past Surgical History None Active Ordered Medications Reviewed in EMR Family History Paternal grandmother and grandfather with myocardial infarction. Father with coronary disease status post stent. Mother in good health. Social History Denies tobacco, alcohol or illicit drug use Reported Medications none Known to have HTN - non-compliant Active Ordered Medications Current Medications Medications (Trade) Dose Ordered Sig/Ashley Route Start Time Stop Time Status Last Admin (NS Flush) 2 ml UNSCH PRN IV FLUSH 10/04/17 13:15 (Tylenol) 650 mg Q6H PRN PO 10/04/17 13:15 ([place] 5-325 Mg) 1 tab Q4H PRN PO 10/04/17 15:00 (Morphine Inj) 2 mg Q2H PRN IV PUSH 10/04/17 14:45 (Protonix) 40 mg DAILY PO 10/05/17 09:00 10/08/17 10:07 (Tears Naturale Opth Soln) 1 drop TID EACH EYE 10/04/17 18:00 (Zofran Inj) 4 mg Q6H PRN IV PUSH 10/04/17 13:15 ([facility]) 1 Q361D XX 10/04/17 13:15 10/04/17 19:15 (Deanna-Colace) 1 tab BID PO 10/04/17 21:00 10/06/17 21:09 (Milk Of Magnesia Liq) 30 ml Q12H PRN PO 10/04/17 13:15 (Senokot) 17.2 mg Q12H PRN PO 10/04/17 13:15 (Dulcolax Supp) 10 mg DAILY PRN RECTAL 10/04/17 13:15 (Lactulose Liq) 30 ml DAILY PRN PO 10/04/17 13:15 (Trandate Inj) 10 mg Q1HR PRN IV PUSH 10/04/17 13:30 10/08/17 06:00 (NS Flush) 2 ml BID IV FLUSH 10/04/17 21:00 10/08/17 10:08 (Aspirin Chew) 81 mg DAILY PO 10/05/17 09:00 10/08/17 10:07 ([facility]) Patient in critical care unit? Ass... Q361D .XX 10/04/17 21:30 10/04/17 21:18 (Chlorhexidine 2% Cloth) 3 pack DAILY@04 TOPICAL 10/05/17 04:00 10/09/17 04:01 10/07/17 04:00 (Chlorhexidine 2% Cloth) 3 pack UNSCH PRN TOPICAL 10/04/17 21:30 10/09/17 21:16 Nicardipine HCl 25 mg/Sodium Chloride 260 ml @ 52 mls/hr TITRATE PRN IV 10/05/17 06:45 (Pill Splitter) 1 ea UNSCH PRN OTHER 10/05/17 06:45 (Norvasc) 5 mg BID PO 10/06/17 09:00 10/08/17 10:09 (Lipitor) 40 mg HS PO 10/06/17 21:00 10/07/17 20:07 (Duoneb Neb) 1 ampule Q4HR NEB PRN NEB 10/06/17 17:30 10/06/17 20:08 (Plavix) 75 mg DAILY PO 10/06/17 18:15 10/08/17 10:08 (Prinivil) 20 mg BID PO 10/07/17 09:00 10/08/17 10:07 Sodium Chloride 1,000 ml @ 30 mls/hr Q24H IV 10/08/17 01:45 (Aldactone) 25 mg DAILY PO 10/08/17 09:00 10/08/17 10:07 (Catapres) 0.1 mg Q6HR PRN PO 10/08/17 07:45 Heparin Sodium/ Dextrose 250 ml @ 10 mls/hr TITRATE PRN IV 10/08/17 09:15 (Trandate) 300 mg Q12HR PO 10/08/17 09:15 10/08/17 10:10 (Apresoline) 100 mg Q8H PO 10/08/17 10:00 10/08/17 10:07 Family History Paternal grandmother and grandfather with myocardial infarction. Father with cardiac stent age 49. Mother in good health. Social History Social History Denies tobacco, alcohol or illicit drug use Physical Exam Vital Signs Vital Signs Date Time Temp Pulse Resp B/P (MAP) Pulse Ox O2 Delivery O2 Flow Rate FiO2 10/08/17 07:00 98.5 64 18 196/109 (138) 98 10/08/17 04:42 98.0 61 176/100 (125) 96 10/08/17 00:41 98.0 65 231/127 (161) 96 10/07/17 23:26 62 10/07/17 22:00 65 10/07/17 20:00 98.7 74 21 178/94 (122) 99 10/07/17 20:00 75 10/07/17 19:30 95 21 10/07/17 18:00 78 10/07/17 16:00 99.8 10/07/17 16:00 70 10/07/17 14:00 68 Physical Exam GENERAL: This is a morbidly obese, well-developed patient, in no apparent distress. SKIN: No rashes, ecchymoses or lesions. Cool and dry. HEAD: Atraumatic. Normocephalic. No temporal or scalp tenderness. EYES: Pupils equal round and reactive. Extraocular motions intact. No scleral icterus. No injection or drainage. ENT: Nose without bleeding, purulent drainage or septal hematoma. Throat without erythema, tonsillar hypertrophy or exudate. Uvula midline. Airway patent. NECK: Trachea midline. No JVD or lymphadenopathy. Supple, nontender, no meningeal signs. CARDIOVASCULAR: Regular rate and rhythm without murmurs, gallops, or rubs. RESPIRATORY: Clear to auscultation. Breath sounds equal bilaterally. No wheezes , rales, or rhonchi. GASTROINTESTINAL: Abdomen soft, non-tender, nondistended. No hepato-splenomegaly , or palpable masses. No guarding. MUSCULOSKELETAL: Extremities without clubbing, cyanosis, or edema. No joint tenderness, effusion, or edema noted. No calf tenderness. Negative Homans sign bilaterally. NEUROLOGICAL: Awake and alert. Cranial nerves II through XII intact. Motor and sensory grossly within normal limits. Five out of 5 muscle strength in all muscle groups. Normal speech. Result Diagram: 10/07/1745410/07/17454 Imaging Last Impressions Myocardial Perfusion Scan Nuc Med 10/06/17 Signed Impressions: CONCLUSION: 1. Abnormal scan demonstrating large size moderate severity partially reversib le perfusion defects involving septum, anterior, and lateral segments. There is also dilation of the left ventricular cavity. Findings suggest either multi ve ssel disease or cardiomyopathy. 2. Markedly depressed ejection fraction of 31%. No dyskinetic segments seen, h owever, motion analysis is compromised due to the decrease in activity in the i nvolved segments. Neck CTA 10/05/17 Signed Impressions: CONCLUSION: 1. Mild atherosclerotic plaque in the carotid arteries without hemodynamically significant stenosis Head CTA 10/05/17 Signed Impressions: CONCLUSION: Focal stenosis at the distal left vertebral artery and a smooth stenosis at the distal basilar artery. There is also some questionable nodularity in the M1 se gments of the middle cerebral arteries concerning for underlying atheroscleroti c change. Vasculitis could conceivably have a similar appearance. The distal fl ow appears symmetric and within normal limits. Head CT 10/05/17 Signed Impressions: CONCLUSION: 1. No definite acute abnormality is seen. 2. Extensive low density in the cerebral white matter concerning for demyelina tion. This could be secondary to small vessel ischemic change. It is nonspecifi c. 3. Several lacunar infarcts are seen. Given this finding, the possible small v essel ischemic change, and the patient's age, one could consider underlying jassi ology such as vasculitis. Chest X-Ray 10/04/17 Signed Impressions: CONCLUSION: The lungs are clear. Carotid Artery Ultrasound 10/04/17 Signed Impressions: CONCLUSION: 1. Right Internal Carotid Artery: 2. Left Internal Carotid Artery: Course Patient presented with malignant HTN and dysarthria. He underwent neurologic evaluation and was found to have several lacunar infarcts of indeterminate age. He remain hypertensive. He denies chest pain, but was noted to have elevated troponins. Assessment and Plan Problem List: (1) NSTEMI (non-ST elevated myocardial infarction) ICD Codes: I21.4 - Non-ST elevation (NSTEMI) myocardial infarction Status: Acute (2) CAD (coronary artery disease) ICD Codes: I25.10 - Atherosclerotic heart disease of [place] coronary artery without angina pectoris Status: Acute (3) BMI 45.0-49.9, adult ICD Codes: Z68.42 - Body mass index (BMI) 45.0-49.9, adult Status: Chronic Assessment and Plan 52y/o morbidly obese male presents with malignant hypertension, lacunar infarcts , and NSTEMI with left main and 3 vessel CAD. CABG is recommended. Risks and benefits of CABG discussed with the patient and he agrees to proceed. I offered to schedule his surgery tomorrow, but he refused as his family is flying in tomorrow to see him first. I will be out of town next week and will ask Dr. Cruz to see him as well to potentially perform this procedure. STS Risk as follows: Risk Model and Variables - STS Adult Cardiac Surgery Database Version 2.81 RISK SCORES About the STS Risk Calculator Procedure: CAB Only Risk of Mortality: 0.811% Morbidity or Mortality: 15.48% Long Length of Stay: 4.442% Short Length of Stay: 50.955% Permanent Stroke: 0.299% Prolonged Ventilation: 12.314% DSW Infection: 0.59% Renal Failure: 3.807% Reoperation: 4.095% Problem Qualifiers (1) CAD (coronary artery disease): Qualified Codes: I25.110 - Atherosclerotic heart disease of [place] coronary artery with unstable angina pectoris (2) TIA (transient ischemic attack): Qualified Codes: G45.9 - Transient cerebral ischemic attack, unspecified Carolyne Walters MD Oct 08, 2017 12:31
--- NOTE | 2017-10-08 13:14 | HHI.PR ---
Subjective Remarks Patient reports some visual disturbance when his blood pressure dropped this morning. Objective Vitals Vital Signs Date Time Temp Pulse Resp B/P (MAP) Pulse Ox O2 Delivery O2 Flow Rate FiO2 10/08/17 07:00 98.5 64 18 196/109 (138) 98 10/08/17 04:42 98.0 61 176/100 (125) 96 10/08/17 00:41 98.0 65 231/127 (161) 96 10/07/17 23:26 62 10/07/17 22:00 65 10/07/17 20:00 98.7 74 21 178/94 (122) 99 10/07/17 20:00 75 10/07/17 19:30 95 21 10/07/17 18:00 78 10/07/17 16:00 99.8 10/07/17 16:00 70 10/07/17 14:00 68 I/O 10/07/17 10/07/17 10/07/17 10/08/17 10/08/17 10/08/17 07:00 15:00 23:00 07:00 15:00 23:00 Intake Total 240 ml 960 ml 100 ml Output Total 600 ml 600 ml 1725 ml 350 ml Balance -600 ml -360 ml -765 ml -250 ml Intake Oral 240 ml 960 ml 100 ml Output Urine Total 600 ml 600 ml 1725 ml 350 ml # Bowel Movements 1 0 Result Diagram: 10/07/17 0455 10/07/17 0455 Objective Remarks GENERAL: Morbidly obese male in no apparent distress. CARDIOVASCULAR: Regular rate and rhythm without murmurs, gallops, or rubs. RESPIRATORY: Clear to auscultation. Breath sounds equal bilaterally. No wheezes , rales, or rhonchi. GASTROINTESTINAL: Abdomen soft, non-tender, nondistended. Normal active bowel sounds MUSCULOSKELETAL: Extremities without clubbing, cyanosis, or edema. NEURO: Alert & Oriented x4 to person, place, time, situation. Moves all ext x4 Procedures ECHOCARDIOGRAM CONCLUSIONS Very technically difficult study In limited views, the left ventricular systolic function is normal with an estimated ejection fraction in the range of 55-60%. There was limited left ventricular wall motion assessment due to poor endocardial visualization. [id number] mitral valve regurgitation. There is trace tricuspid valve regurgitation. A/P Problem List: (1) Hypertensive emergency ICD Code: I16.1 - Hypertensive emergency Status: Acute (2) Cerebrovascular accident, old ICD Code: Z86.73 - Personal history of transient ischemic attack (TIA), and cerebral infarction without residual deficits (3) Right bundle branch block ICD Code: I45.10 - Unspecified right bundle-branch block (4) Asthma, mild intermittent ICD Code: J45.20 - Mild intermittent asthma, uncomplicated (5) ADDY on CPAP ICD Code: G47.33 - Obstructive sleep apnea (adult) (pediatric); Z99.89 - Dependence on other enabling machines and devices Status: Chronic (6) BMI 45.0-49.9, adult ICD Code: Z68.42 - Body mass index (BMI) 45.0-49.9, adult Status: Chronic Assessment and Plan NSTEMI: - S/P heart cath which showed severe disease. CT surgery consulted to consider CABG - Patient continue on aspirin, beta-ernesto, Nitropaste, statin, PACO inhibitor, calcium channel ernesto Hypertensive emergency -Status post use of Cardene for blood pressure improvement -Amlodipine 5 mg twice daily -Lisinopril 10 mg twice daily, increased to 20 mg twice daily -Metoprolol 50 mg twice daily -Clonidine, labetalol as needed - BP improved today. Acute neurological deficit with dysarthria, difficulty pronouncing words, left facial droop -This is all likely secondary to the patient's uncontrolled hypertension and hypertensive emergency -Patient continued on aspirin 81 mg daily -Patient has undergone follow-up CT of the brain which does show extensive low density in the cerebral white matter concerning for demyelinization or small vessel ischemic change. Several lacunar infarcts, possible small vessel ischemic change -Unable do MRIs due to body habitus and claustrophobia -Carotid ultrasound was normal -Echocardiogram had technical difficulty. But ejection fraction 55-60%, mild to moderate atrial valve regurg -EEG: Showed normal EEG -Neurology following. Recommend continuation of aspirin/Plavix. Stop aspirin in 3 months -PT OT ST evaluations have been performed Hyperlipidemia -Lipid panel does indicate LDL of 183 -Continue high-dose Lipitor 40 mg daily Obstructive sleep apnea -Continue O2 to maintain O2 sats greater than 92% -Patient may use own CPAP -Incentive spirometry DVT prevention -Sequential compression devices -Subcutaneous heparin Discharge Planning CT surgery consulted to consider CABG Problem Qualifiers (1) Asthma, mild intermittent: Qualified Codes: J45.20 - Mild intermittent asthma, uncomplicated Lali Armenta MD Oct 08, 2017 13:14
[2017-10-08] MEDS: HEPARIN-D5W 25,000 U/250 ML 250 ML IV PRN (13:17)
[2017-10-08 13:47] LABS: HEMATOCRIT 41.3 % (39.0-51.0); HEMOGLOBIN 13.5 GM/DL (13.0-17.0); MEAN CELL VOLUME 84.6 FL (80.0-100.0); MEAN CORPUSCULAR HEMOGLOBIN 27.7 PG (27.0-34.0); MEAN CORPUSCULAR HGB CONC 32.8 % (32.0-36.0); MEAN PLATELET VOLUME 10.2 FL (7.0-11.0); PLATELET COUNT 176 TH/MM3 (150-450); RED BLOOD COUNT 4.88 MIL/MM3 (4.50-5.90); RED CELL DISTRIBUTION WIDTH 14.2 % (11.6-17.2); WHITE BLOOD COUNT 9.1 TH/MM3 (4.0-11.0)
[2017-10-08 13:56] LABS: INTERNATIONAL NORMALIZED RATIO 1.1 RATIO; PROTHROMBIN TIME - PATIENT 10.7 SEC (9.8-11.6)
[2017-10-08] MEDS ORDERED: MIDAZOLAM HCL 2 MG/2 ML VIAL ONE (15:53)
[2017-10-08] MEDS ORDERED: NITROGLYCERIN INJ 5 ML ONE (15:55)
[2017-10-08] MEDS ORDERED: HEPARIN-NS/PF INJ 1,000 ML ONE (15:55)
[2017-10-08] MEDS ORDERED: HEPARIN SODIUM - IV 10,000 UNITS/10 ML VIAL ONE (15:55)
[2017-10-08] MEDS ORDERED: hydrALAZINE HCL 20 MG/ML VIAL ONE (15:55)
[2017-10-08] MEDS ORDERED: IOHEXOL 350 MG/ML 50 ML BTL (for Cath Lab) OTHER ONE (17:28)
--- NOTE | 2017-10-08 20:53 | RADRPT ---
EXAM DATE: 10/08/2017 8:35 PM EDT AGE/SEX: 52 years / Male INDICATIONS: Hypertensive, visual Disturbance, tingling OF FACE AND BACK OF HEAD CLINICAL DATA: This is the patient's initial encounter. Patient reports that signs and symptoms have been present for 1 day and indicates a pain score of 0/10. MEDICAL/SURGICAL HISTORY: Hypertension. Asthma. None. RADIATION DOSE: 45.29 CTDI (mGy) COMPARISON: CT brain 10/05/2017. TECHNIQUE: CT of the head without contrast. Using automated exposure control and adjustment of the mA and/or kV according to patient size, radiation dose was kept as low as reasonably achievable to ob tain optimal diagnostic quality images. DICOM format image data is available electronically for revi ew and comparison. FINDINGS: Cerebrum: Chronic lacunar style infarction involving the head of caudate on the right and basal gang glo bilaterally unchanged from the prior study. The ventricles are normal for age. No evidence of mi dline shift, mass lesion, hemorrhage or acute infarction. No extraaxial fluid collections are seen. Posterior Fossa: The cerebellum and brainstem are intact. The 4th ventricle is midline. The cerebe llopontine angle is unremarkable. Extracranial: The visualized portion of the orbits is intact. Skull: The calvaria is intact. No evidence of skull fracture. CONCLUSION: 1. No acute intracranial abnormality. 2. Multiple chronic lacunar infarctions. Electronically signed by: Nato Enriquez MD 10/08/2017 8:52 PM EDT
[2017-10-08] MEDS: ATORVASTATIN 40 MG TAB PO SCH (21:34)
[2017-10-09] VITALS (10 sets, daily range): BP systolic 136–176; BP diastolic 80–90; PULSE 55–63; RESP 18; TEMP 98.1–98.2; O2SAT 96–98
[2017-10-09] MEDS: hydrALAZINE HCL 100 MG TAB PO SCH ×2 (01:52→10:17)
[2017-10-09] MEDS: CHLORHEXIDINE GLUCONATE 2 % 1 PACK (2 CLOTHS)(taper/protocol) TOPICAL SCH (04:00)
--- NOTE | 2017-10-09 08:30 | HHI.PR ---
Review/Management Diagnosis/Plan: (1) TIA (transient ischemic attack) ICD Codes: G45.9 - Transient cerebral ischemic attack, unspecified Status: Acute Plan: Possible tiny left subcortical infarct resulting in mild disfluency. Fortunately he is overall improving. NIH stroke scale score 0 Doing well back to his baseline Recommendations Repeat CAT scan showing chronic strokes Appears to have visual migraines exacerbated by current stress Antiplatelets, statin, blood pressure control, exercise weight loss He is cleared for cardiovascular surgery from neurologic standpoint however states not interested in having surgery (2) Hypertensive emergency ICD Codes: I16.1 - Hypertensive emergency Status: Acute Plan: Critical care monitoring (3) ADDY on CPAP ICD Codes: G47.33 - Obstructive sleep apnea (adult) (pediatric); Z99.89 - Dependence on other enabling machines and devices Status: Chronic Subjective Subjective Comments Having visual scotomas, zigzag lines and snake appearance yesterday. States that this has occurred in the past during times of stress. Says vision is improving minimal residuals at present says he is not worried about No focal weakness speech has improved No headache No chest pain No dyspnea Active Medications Current Medications Medications (Trade) Dose Ordered Sig/Ashley Route Start Time Stop Time Status Last Admin (NS Flush) 2 ml UNSCH PRN IV FLUSH 10/04/17 13:15 (Tylenol) 650 mg Q6H PRN PO 10/04/17 13:15 ([place] 5-325 Mg) 1 tab Q4H PRN PO 10/04/17 15:00 (Morphine Inj) 2 mg Q2H PRN IV PUSH 10/04/17 14:45 (Protonix) 40 mg DAILY PO 10/05/17 09:00 10/08/17 10:07 (Tears Naturale Opth Soln) 1 drop TID EACH EYE 10/04/17 18:00 (Zofran Inj) 4 mg Q6H PRN IV PUSH 10/04/17 13:15 ([facility] [place] [facility]) 1 Q361D XX 10/04/17 13:15 10/04/17 19:15 (Deanna-Colace) 1 tab BID PO 10/04/17 21:00 10/06/17 21:09 (Milk Of Magnesia Liq) 30 ml Q12H PRN PO 10/04/17 13:15 (Senokot) 17.2 mg Q12H PRN PO 10/04/17 13:15 (Dulcolax Supp) 10 mg DAILY PRN RECTAL 10/04/17 13:15 (Lactulose Liq) 30 ml DAILY PRN PO 10/04/17 13:15 (Trandate Inj) 10 mg Q1HR PRN IV PUSH 10/04/17 13:30 10/08/17 06:00 (NS Flush) 2 ml BID IV FLUSH 10/04/17 21:00 10/08/17 21:36 (Aspirin Chew) 81 mg DAILY PO 10/05/17 09:00 10/08/17 10:07 ([facility] [place] [facility]) Patient in critical care unit? Ass... Q361D .XX 10/04/17 21:30 10/04/17 21:18 (Chlorhexidine 2% Cloth) 3 pack UNSCH PRN TOPICAL 10/04/17 21:30 10/09/17 21:16 Nicardipine HCl 25 mg/Sodium Chloride 260 ml @ 52 mls/hr TITRATE PRN IV 10/05/17 06:45 (Pill Splitter) 1 ea UNSCH PRN OTHER 10/05/17 06:45 (Norvasc) 5 mg BID PO 10/06/17 09:00 10/08/17 21:35 (Lipitor) 40 mg HS PO 10/06/17 21:00 10/08/17 21:34 (Duoneb Neb) 1 ampule Q4HR NEB PRN NEB 10/06/17 17:30 10/06/17 20:08 (Plavix) 75 mg DAILY PO 10/06/17 18:15 10/08/17 10:08 (Prinivil) 20 mg BID PO 10/07/17 09:00 10/08/17 21:34 Sodium Chloride 1,000 ml @ 30 mls/hr Q24H IV 10/08/17 01:45 (Aldactone) 25 mg DAILY PO 10/08/17 09:00 10/08/17 10:07 (Catapres) 0.1 mg Q6HR PRN PO 10/08/17 07:45 10/08/17 15:42 Heparin Sodium/ Dextrose 250 ml @ 10 mls/hr TITRATE PRN IV 10/08/17 09:15 10/08/17 13:17 (Trandate) 300 mg Q12HR PO 10/08/17 09:15 10/08/17 21:35 (Apresoline) 100 mg Q8H PO 10/08/17 10:00 10/09/17 01:52 Allergies Allergies Coded Allergies No Known Allergies (Unverified10/04/17) Review of Systems All other ROS: ROS reviewed as documented in chart Exam I&O / VS Vital Signs Date Time Temp Pulse Resp B/P (MAP) Pulse Ox O2 Delivery O2 Flow Rate FiO2 10/09/17 06:00 55 10/09/17 05:00 56 10/09/17 04:00 60 10/09/17 03:17 98.2 60 18 136/80 (98) 98 10/09/17 03:00 63 10/09/17 02:00 55 10/09/17 01:00 55 10/09/17 00:00 60 10/08/17 23:35 98.4 61 18 159/91 (113) 97 10/08/17 23:00 57 10/08/17 22:00 78 10/08/17 21:00 74 10/08/17 20:00 97.7 63 16 152/90 (110) 96 10/08/17 20:00 64 10/08/17 19:00 64 10/08/17 18:00 69 10/08/17 17:00 67 10/08/17 16:00 74 10/08/17 16:00 98.6 65 18 168/94 (118) 96 10/08/17 15:00 66 10/08/17 14:00 64 10/08/17 13:00 70 10/08/17 12:00 98.1 70 18 137/66 (89) 94 10/08/17 12:00 68 10/08/17 11:00 71 10/08/17 10:00 74 General: Alert and Oriented, No acute distress Eye: EOMI Respiratory: Non-labored respirations Musculoskeletal: ROM Neurologic: Alert, Oriented, Normal sensory, Normal motor, CN II-XII intact, Normal DTR's Psychiatric: Cooperative, Appropriate mood & affect Exam Comments Awake alert oriented 3 sitting up in bed pleasant clear speech no visual field deficit pupils 2-1 mm bilaterally no facial asymmetry able to read name objects without difficulty. No focal weakness no pronator drift Objective Micro and Labs Laboratory Tests Test 10/08/17 12:42 10/08/17 19:54 10/09/17 03:20 White Blood Count 9.1 Red Blood Count 4.88 Hemoglobin 13.5 Hematocrit 41.3 Mean Corpuscular Volume 84.6 Mean Corpuscular Hemoglobin 27.7 Mean Corpuscular Hemoglobin Concent 32.8 Red Cell Distribution Width 14.2 Platelet Count 176 Mean Platelet Volume 10.2 Prothrombin Time 10.7 Prothromb Time International Ratio 1.1 Activated Partial Thromboplast Time 29.4 31.2 32.9 Problem Qualifiers (1) TIA (transient ischemic attack): Qualified Codes: G45.9 - Transient cerebral ischemic attack, unspecified Izaiah Conde MD Oct 09, 2017 08:30
[2017-10-09] MEDS: PANTOPRAZOLE SOD 40 MG DELAYED RELEASE TAB PO SCH (08:33)
[2017-10-09] MEDS: DOCUSATE SODIUM 50 MG/SENNA 8.6 MG TAB PO SCH (08:33)
[2017-10-09] MEDS: LABETALOL HCL 300 MG TAB PO SCH (08:33)
[2017-10-09] MEDS: LISINOPRIL 10 MG TAB PO SCH (08:34)
[2017-10-09] MEDS: amLODIPine BESYLATE 5 MG TAB PO SCH (08:34)
[2017-10-09] MEDS: SPIRONOLACTONE 25 MG TAB PO SCH (08:34)
[2017-10-09] MEDS: CLOPIDOGREL 75 MG TAB PO SCH (08:34)
[2017-10-09] MEDS: SODIUM CHLORIDE 0.9% FLUSH 10 ML FLUSH IV FLUSH SCH (08:35)
[2017-10-09] MEDS: ARTIFICIAL TEARS OPTH SOLN 15 ML BTL EACH EYE SCH (08:36)
[2017-10-09] MEDS: ASPIRIN 81 MG CHEW TAB PO SCH (08:40)
--- NOTE | 2017-10-09 09:08 | PD.CARD.PN ---
Subjective Subjective Remarks Patient considering risk of not having CABG done. He understands that this is not logical, but he is tired of being in the hospital and is hoping to go home. Family at bedside. Spoke with patient at length regarding current findings of coronary artery disease including 90% left main stenosis and current recommendations. All questions answered. He has had chronic dyspnea on exertion. Currently no chest pain, shortness breath, palpitations. No issues with right wrist access site. (Shreyas Oleary) Objective Medications Current Medications Medications (Trade) Dose Ordered Sig/Ashley Route Start Time Stop Time Status Last Admin (NS Flush) 2 ml UNSCH PRN IV FLUSH 10/04/17 13:15 (Tylenol) 650 mg Q6H PRN PO 10/04/17 13:15 ([place] 5-325 Mg) 1 tab Q4H PRN PO 10/04/17 15:00 (Morphine Inj) 2 mg Q2H PRN IV PUSH 10/04/17 14:45 (Protonix) 40 mg DAILY PO 10/05/17 09:00 10/09/17 08:33 (Tears Naturale Opth Soln) 1 drop TID EACH EYE 10/04/17 18:00 (Zofran Inj) 4 mg Q6H PRN IV PUSH 10/04/17 13:15 ([facility] [place] [facility]) 1 Q361D XX 10/04/17 13:15 10/04/17 19:15 (Deanna-Colace) 1 tab BID PO 10/04/17 21:00 10/09/17 08:33 (Milk Of Magnesia Liq) 30 ml Q12H PRN PO 10/04/17 13:15 (Senokot) 17.2 mg Q12H PRN PO 10/04/17 13:15 (Dulcolax Supp) 10 mg DAILY PRN RECTAL 10/04/17 13:15 (Lactulose Liq) 30 ml DAILY PRN PO 10/04/17 13:15 (Trandate Inj) 10 mg Q1HR PRN IV PUSH 10/04/17 13:30 10/08/17 06:00 (NS Flush) 2 ml BID IV FLUSH 10/04/17 21:00 10/09/17 08:35 (Aspirin Chew) 81 mg DAILY PO 10/05/17 09:00 10/09/17 08:40 ([facility] [place] [facility]) Patient in critical care unit? Ass... Q361D .XX 10/04/17 21:30 10/04/17 21:18 (Chlorhexidine 2% Cloth) 3 pack UNSCH PRN TOPICAL 10/04/17 21:30 10/09/17 21:16 Nicardipine HCl 25 mg/Sodium Chloride 260 ml @ 52 mls/hr TITRATE PRN IV 10/05/17 06:45 (Pill Splitter) 1 ea UNSCH PRN OTHER 10/05/17 06:45 (Norvasc) 5 mg BID PO 10/06/17 09:00 10/09/17 08:34 (Lipitor) 40 mg HS PO 10/06/17 21:00 10/08/17 21:34 (Duoneb Neb) 1 ampule Q4HR NEB PRN NEB 10/06/17 17:30 10/06/17 20:08 (Plavix) 75 mg DAILY PO 10/06/17 18:15 10/09/17 08:34 (Prinivil) 20 mg BID PO 10/07/17 09:00 10/09/17 08:34 Sodium Chloride 1,000 ml @ 30 mls/hr Q24H IV 10/08/17 01:45 (Aldactone) 25 mg DAILY PO 10/08/17 09:00 10/09/17 08:34 (Catapres) 0.1 mg Q6HR PRN PO 10/08/17 07:45 10/08/17 15:42 Heparin Sodium/ Dextrose 250 ml @ 10 mls/hr TITRATE PRN IV 10/08/17 09:15 10/08/17 13:17 (Trandate) 300 mg Q12HR PO 10/08/17 09:15 10/09/17 08:33 (Apresoline) 100 mg Q8H PO 10/08/17 10:00 10/09/17 01:52 Vital Signs / I&O Vital Signs Date Time Temp Pulse Resp B/P (MAP) Pulse Ox O2 Delivery O2 Flow Rate FiO2 10/09/17 06:00 55 10/09/17 05:00 56 10/09/17 04:00 60 10/09/17 03:17 98.2 60 18 136/80 (98) 98 10/09/17 03:00 63 10/09/17 02:00 55 10/09/17 01:00 55 10/09/17 00:00 60 10/08/17 23:35 98.4 61 18 159/91 (113) 97 10/08/17 23:00 57 10/08/17 22:00 78 10/08/17 21:00 74 10/08/17 20:00 97.7 63 16 152/90 (110) 96 10/08/17 20:00 64 10/08/17 19:00 64 10/08/17 18:00 69 10/08/17 17:00 67 10/08/17 16:00 74 10/08/17 16:00 98.6 65 18 168/94 (118) 96 10/08/17 15:00 66 10/08/17 14:00 64 10/08/17 13:00 70 10/08/17 12:00 98.1 70 18 137/66 (89) 94 10/08/17 12:00 68 10/08/17 11:00 71 10/08/17 10:00 74 I/O 10/08/17 10/08/17 10/08/17 10/09/17 10/09/17 10/09/17 07:00 15:00 23:00 07:00 15:00 23:00 Intake Total 100 ml 100 ml 820 ml 240 ml Output Total 350 ml 770 ml 400 ml Balance -250 ml 100 ml 50 ml -160 ml Intake Oral 100 ml 820 ml 240 ml IV Total 100 ml Output Urine Total 350 ml 770 ml 400 ml # Bowel Movements 1 Physical Exam GENERAL: Well-developed well-nourished. Obese. In no acute distress. NECK: No carotid bruits. No JVD. CARDIOVASCULAR: Regular rate and rhythm. No murmur appreciated. RESPIRATORY: No accessory muscle use. Clear to auscultation. Breath sounds equal bilaterally. MUSCULOSKELETAL: No clubbing or cyanosis. No edema. Hyperpigmented skin changes bilateral ankles. Right wrist access site with no swelling or ecchymosis; intact pulses NEUROLOGICAL: Awake and alert. Normal speech. Laboratory Laboratory Tests Test 10/08/17 12:42 10/08/17 19:54 10/09/17 03:20 White Blood Count 9.1 TH/MM3 Red Blood Count 4.88 MIL/MM3 Hemoglobin 13.5 GM/DL Hematocrit 41.3 % Mean Corpuscular Volume 84.6 FL Mean Corpuscular Hemoglobin 27.7 PG Mean Corpuscular Hemoglobin Concent 32.8 % Red Cell Distribution Width 14.2 % Platelet Count 176 TH/MM3 Mean Platelet Volume 10.2 FL Prothrombin Time 10.7 SEC Prothromb Time International Ratio 1.1 RATIO Activated Partial Thromboplast Time 29.4 SEC 31.2 SEC 32.9 SEC Imaging Last Impressions Head CT 10/08/17 Signed Impressions: CONCLUSION: 1. No acute intracranial abnormality. 2. Multiple chronic lacunar infarctions. Myocardial Perfusion Scan Nuc Med 10/06/17 Signed Impressions: CONCLUSION: 1. Abnormal scan demonstrating large size moderate severity partially reversib le perfusion defects involving septum, anterior, and lateral segments. There is also dilation of the left ventricular cavity. Findings suggest either multi ve ssel disease or cardiomyopathy. 2. Markedly depressed ejection fraction of 31%. No dyskinetic segments seen, h owever, motion analysis is compromised due to the decrease in activity in the i nvolved segments. Neck CTA 10/05/17 Signed Impressions: CONCLUSION: 1. Mild atherosclerotic plaque in the carotid arteries without hemodynamically significant stenosis Head CTA 10/05/17 Signed Impressions: CONCLUSION: Focal stenosis at the distal left vertebral artery and a smooth stenosis at the distal basilar artery. There is also some questionable nodularity in the M1 se gments of the middle cerebral arteries concerning for underlying atheroscleroti c change. Vasculitis could conceivably have a similar appearance. The distal fl ow appears symmetric and within normal limits. Chest X-Ray 10/04/17 Signed Impressions: CONCLUSION: The lungs are clear. Carotid Artery Ultrasound 10/04/17 Signed Impressions: CONCLUSION: 1. Right Internal Carotid Artery: 2. Left Internal Carotid Artery: (Shreyas Oleary) Assessment and Plan Assessment and Plan 52-year-old male with a past medical history of asthma, ADDY on CPAP, untreated hypertension who presented for difficulty speaking. He also noticed having a hard time with his dexterity in typing on his laptop. Patient has not seen a physician in many years due to lack of insurance, was previously treated for high blood pressure at the time. His systolic blood pressures have been up in the 270s and he was on nicardipine drip overnight, which has currently been held. The patient's initial troponin was checked and found to be 0.07, elevated to 1.4 overnight. EKG shows sinus tachycardia rate 109, bifascicular block with right bundle branch block and left anterior fascicular block, no prior EKG for comparison. The patient denies any chest pain. He has noticed some dyspnea on exertion over the past several years with associated palpitations. Hypertensive emergency: Secondary to medical nonadherence. Currently better controlled on hydralazine 100 mg 3 times daily, lisinopril 20 mg twice daily, amlodipine 5 mg twice daily, metoprolol 50 mg twice daily, spironolactone 25 mg daily. Clonidine as needed and and nicardipine gtt prn SBP >200. Coronary artery disease w/ NSTEMI: 0.07->6.86->2.17. Myocardial perfusion scan showed large sized moderate severity partially reversible perfusion defects involving the septum, anterior, and lateral segments. LHC showed severe multivessel CAD including 90% left main stenosis. CT surgery consulted for bypass. Patient considering options including declining procedure. Stroke syndrome: Neurology consulted, recommended aspirin, Plavix, and BP control. Cleared from neurology perspective for CABG if needed. Discussed Condition With Patient with family at bedside (hSreyas Oleary) Assessment and Plan await CT surgery input given age and anatomy, CABG is far superior option for revascularization. if patient refuses, then medical therapy or High risk PCI would transfer to [facility] will sign off call with questions (Wu Ortiz MD) Shreyas Oleary Oct 09, 2017 09:08 Wu Ortiz MD Oct 09, 2017 10:03
[2017-10-09] MEDS: HEPARIN-D5W 25,000 U/250 ML 250 ML IV PRN (10:25)
--- NOTE | 2017-10-09 11:12 | HHI.PR ---
Objective Vitals Vital Signs Date Time Temp Pulse Resp B/P (MAP) Pulse Ox O2 Delivery O2 Flow Rate FiO2 10/09/17 09:53 96 21 10/09/17 08:00 58 10/09/17 08:00 98.1 62 18 176/90 (118) 96 10/09/17 06:00 55 10/09/17 05:00 56 10/09/17 04:00 60 10/09/17 03:17 98.2 60 18 136/80 (98) 98 10/09/17 03:00 63 10/09/17 02:00 55 10/09/17 01:00 55 10/09/17 00:00 60 10/08/17 23:35 98.4 61 18 159/91 (113) 97 10/08/17 23:00 57 10/08/17 22:00 78 10/08/17 21:00 74 10/08/17 20:00 97.7 63 16 152/90 (110) 96 10/08/17 20:00 64 10/08/17 19:00 64 10/08/17 18:00 69 10/08/17 17:00 67 10/08/17 16:00 74 10/08/17 16:00 98.6 65 18 168/94 (118) 96 10/08/17 15:00 66 10/08/17 14:00 64 10/08/17 13:00 70 10/08/17 12:00 98.1 70 18 137/66 (89) 94 10/08/17 12:00 68 I/O 10/08/17 10/08/17 10/08/17 10/09/17 10/09/17 10/09/17 06:59 14:59 22:59 06:59 14:59 22:59 Intake Total 100 ml 100 ml 820 ml 240 ml Output Total 350 ml 770 ml 400 ml Balance -250 ml 100 ml 50 ml -160 ml Intake Oral 100 ml 820 ml 240 ml IV Total 100 ml Output Urine Total 350 ml 770 ml 400 ml # Bowel Movements 1 Result Diagram: 10/08/17 1242 10/07/17 0455 Objective Remarks GENERAL: Morbidly obese male in no apparent distress. CARDIOVASCULAR: Regular rate and rhythm without murmurs, gallops, or rubs. RESPIRATORY: Clear to auscultation. Breath sounds equal bilaterally. No wheezes , rales, or rhonchi. GASTROINTESTINAL: Abdomen soft, non-tender, nondistended. Normal active bowel sounds MUSCULOSKELETAL: Extremities without clubbing, cyanosis, or edema. NEURO: Alert & Oriented x4 to person, place, time, situation. Moves all ext x4 Procedures ECHOCARDIOGRAM CONCLUSIONS Very technically difficult study In limited views, the left ventricular systolic function is normal with an estimated ejection fraction in the range of 55-60%. There was limited left ventricular wall motion assessment due to poor endocardial visualization. [id number] mitral valve regurgitation. There is trace tricuspid valve regurgitation. A/P Problem List: (1) Hypertensive emergency ICD Code: I16.1 - Hypertensive emergency Status: Acute (2) Cerebrovascular accident, old ICD Code: Z86.73 - Personal history of transient ischemic attack (TIA), and cerebral infarction without residual deficits (3) Right bundle branch block ICD Code: I45.10 - Unspecified right bundle-branch block (4) Asthma, mild intermittent ICD Code: J45.20 - Mild intermittent asthma, uncomplicated (5) ADDY on CPAP ICD Code: G47.33 - Obstructive sleep apnea (adult) (pediatric); Z99.89 - Dependence on other enabling machines and devices Status: Chronic (6) BMI 45.0-49.9, adult ICD Code: Z68.42 - Body mass index (BMI) 45.0-49.9, adult Status: Chronic Assessment and Plan NSTEMI: - S/P heart cath which showed severe disease. CT surgery consulted to consider CABG - Patient continue on aspirin, beta-ernesto, Nitropaste, statin, PACO inhibitor, calcium channel ernesto Hypertensive emergency -Status post use of Cardene for blood pressure improvement -Amlodipine 5 mg twice daily -Lisinopril 10 mg twice daily, increased to 20 mg twice daily -Metoprolol 50 mg twice daily -Clonidine, labetalol as needed - BP improved today. Acute neurological deficit with dysarthria, difficulty pronouncing words, left facial droop -This is all likely secondary to the patient's uncontrolled hypertension and hypertensive emergency -Patient continued on aspirin 81 mg daily -Patient has undergone follow-up CT of the brain which does show extensive low density in the cerebral white matter concerning for demyelinization or small vessel ischemic change. Several lacunar infarcts, possible small vessel ischemic change -Unable do MRIs due to body habitus and claustrophobia -Carotid ultrasound was normal -Echocardiogram had technical difficulty. But ejection fraction 55-60%, mild to moderate atrial valve regurg -EEG: Showed normal EEG -Neurology following. Recommend continuation of aspirin/Plavix. Stop aspirin in 3 months -PT OT ST evaluations have been performed Hyperlipidemia -Lipid panel does indicate LDL of 183 -Continue high-dose Lipitor 40 mg daily Obstructive sleep apnea -Continue O2 to maintain O2 sats greater than 92% -Patient may use own CPAP -Incentive spirometry DVT prevention -Sequential compression devices -Subcutaneous heparin Problem Qualifiers (1) Asthma, mild intermittent: Qualified Codes: J45.20 - Mild intermittent asthma, uncomplicated Nehemias Pemberton DO Oct 09, 2017 11:12
--- NOTE | 2017-10-09 11:36 | PD.AMA ---
Against Medical Advice Note Diagnosis: (1) Left main coronary artery disease (2) BMI 45.0-49.9, adult (3) NSTEMI (non-ST elevated myocardial infarction) (4) CAD (coronary artery disease) (5) Hypertensive emergency (6) TIA (transient ischemic attack) Discharge Disposition: Against Medical Advice Pt Condition on Discharge: Guarded Recommended Treatment Course The patient was recommended CABG by CT surgery. Blood pressure control optimization was also recommended. AMA Statement Patient Cesario Vasquez has decided to leave the hospital against medical advice. This patient has the capacity to refuse care and understands the risks of leaving, including permanent disability and/or , and has had an opportunity to ask questions about his condition. The patient has been informed that he may return for care at any time, and follow up has been arranged/advised. Nehemias Pemberton DO Oct 09, 2017 11:36
[2017-10-09] MEDS ORDERED: SPIR25 PO (11:40)
[2017-10-09] MEDS ORDERED: PLAV75TA29 PO (11:40)
[2017-10-09] MEDS ORDERED: AMLO5 PO (11:40)
[2017-10-09] MEDS ORDERED: HYDR-3801 PO (11:40)
[2017-10-09] MEDS ORDERED: LABE300T PO (11:40)
[2017-10-09] MEDS ORDERED: ASPI81 PO (11:40)
[2017-10-09] MEDS ORDERED: ATOR40TA16 PO (11:40)
[2017-10-09] MEDS ORDERED: LISI10TA3 PO (11:40)
--- NOTE | 2017-10-09 11:54 | HHI.DS ---
Discharge Summary Admission Date Oct 04, 2017 at 13:19 Discharge Date: Oct 09, 2017 Admitting Diagnosis Hypertensive emergency (1) Hypertensive emergency ICD Code: I16.1 - Hypertensive emergency Diagnosis: Principal Status: Acute (2) Cerebrovascular accident, old ICD Code: Z86.73 - Personal history of transient ischemic attack (TIA), and cerebral infarction without residual deficits Diagnosis: Secondary (3) Right bundle branch block ICD Code: I45.10 - Unspecified right bundle-branch block Diagnosis: Secondary (4) Asthma, mild intermittent ICD Code: J45.20 - Mild intermittent asthma, uncomplicated (5) ADDY on CPAP ICD Code: G47.33 - Obstructive sleep apnea (adult) (pediatric); Z99.89 - Dependence on other enabling machines and devices Diagnosis: Principal Status: Chronic (6) BMI 45.0-49.9, adult ICD Code: Z68.42 - Body mass index (BMI) 45.0-49.9, adult Diagnosis: Principal Status: Chronic (7) Left main coronary artery disease ICD Code: I25.10 - Atherosclerotic heart disease of [place] coronary artery without angina pectoris Diagnosis: Principal (8) CAD (coronary artery disease) ICD Code: I25.10 - Atherosclerotic heart disease of [place] coronary artery without angina pectoris Status: Acute (9) NSTEMI (non-ST elevated myocardial infarction) ICD Code: I21.4 - Non-ST elevation (NSTEMI) myocardial infarction Status: Acute Procedures ECHOCARDIOGRAM CONCLUSIONS Very technically difficult study In limited views, the left ventricular systolic function is normal with an estimated ejection fraction in the range of 55-60%. There was limited left ventricular wall motion assessment due to poor endocardial visualization. Nwfo-oh-qeuuzvhc mitral valve regurgitation. There is trace tricuspid valve regurgitation. Brief History - From Admission This is a 52-year-old male. The admission 10/04/2017. Past medical history includes untreated hypertension, elevated BMI greater than 48, obstructive sleep apnea on CPAP, mild intermittent asthma. Patient has not seen a doctor/physicist 2005. He states his blood pressure last few checks has been quite elevated with diastolic blood pressure in the 120s. His CPAP machine is over 20 years old. He presents to [facility] with the following story. At approximately 1010, [place] had acute onset of dysarthria. He had difficulty pronouncing words. No focal weakness including headache, vision changes, focal weakness or neuropathy. Denies any recent head trauma or surgeries. CT the brain revealed old right caudate lacunar CVA. Baseline laboratories were essentially within normal limits including BMP and CBC. Troponin is currently pending. EKG reveals sinus tachycardia rate of 110 with a right bundle branch block and a left anterior fascicular block. Troponin is currently pending NIH score was between a 0-1 throughout his ED visit CBC/BMP: 10/08/17 1242 10/07/17 0455 Significant Findings Laboratory Tests Test 10/07/17 04:55 10/08/17 12:42 10/08/17 19:54 10/09/17 03:20 Monocytes (%) (Auto) 8.4 % (0.0-8.0) Blood Urea Nitrogen 20 MG/DL (7-18) Chloride Level 108 MEQ/L (98-107) Estimat Glomerular Filtration Rate 71 ML/MIN (>89) Activated Partial Thromboplast Time 31.2 SEC (24.3-30.1) 32.9 SEC (24.3-30.1) Imaging Last Impressions Head CT 10/08/17 0000 Signed Impressions: CONCLUSION: 1. No acute intracranial abnormality. 2. Multiple chronic lacunar infarctions. Myocardial Perfusion Scan Nuc Med 10/06/17 0000 Signed Impressions: CONCLUSION: 1. Abnormal scan demonstrating large size moderate severity partially reversib le perfusion defects involving septum, anterior, and lateral segments. There is also dilation of the left ventricular cavity. Findings suggest either multi ve ssel disease or cardiomyopathy. 2. Markedly depressed ejection fraction of 31%. No dyskinetic segments seen, h owever, motion analysis is compromised due to the decrease in activity in the i nvolved segments. Neck CTA 10/05/17 0000 Signed Impressions: CONCLUSION: 1. Mild atherosclerotic plaque in the carotid arteries without hemodynamically significant stenosis Head CTA 10/05/17 0000 Signed Impressions: CONCLUSION: Focal stenosis at the distal left vertebral artery and a smooth stenosis at the distal basilar artery. There is also some questionable nodularity in the M1 se gments of the middle cerebral arteries concerning for underlying atheroscleroti c change. Vasculitis could conceivably have a similar appearance. The distal fl ow appears symmetric and within normal limits. Chest X-Ray 10/04/17 Signed Impressions: CONCLUSION: The lungs are clear. Carotid Artery Ultrasound 10/04/17 Signed Impressions: CONCLUSION: 1. Right Internal Carotid Artery: 2. Left Internal Carotid Artery: PE at Discharge GENERAL: Morbidly obese male in no apparent distress. CARDIOVASCULAR: Regular rate and rhythm without murmurs, gallops, or rubs. RESPIRATORY: Clear to auscultation. Breath sounds equal bilaterally. No wheezes , rales, or rhonchi. GASTROINTESTINAL: Abdomen soft, non-tender, nondistended. Normal active bowel sounds MUSCULOSKELETAL: Extremities without clubbing, cyanosis, or edema. NEURO: Alert & Oriented x4 to person, place, time, situation. Moves all ext x4 Pt update on day of discharge The patient did not want to stay in the hospital any longer. He stated that he understood the risks of leaving and wished to go anyway. He said that he does not want any surgery. He says that he will take the medications as prescribed. He said he will also follow-up with the physicians as directed. He said he might change his mind in the future. Discussed with his family at the bedside. Also discussed with nursing. Hospital Course NSTEMI Cardiology was consulted. LDL was elevated. Stress test showed: Abnormal scan demonstrating large size moderate severity partially reversible perfusion defects involving septum, anterior, and lateral segments; There is also dilation of the left ventricular cavity; Findings suggest either multivessel disease or cardiomyopathy; Markedly depressed ejection fraction of 31%. S/p heart cath which showed severe multivessel CAD including 90% left main stenosis. CT surgery was consulted and CABG was recommended. The pt refused to have the procedure performed and demanded to leave AGAINST MEDICAL ADVICE. The patient was continued on aspirin, Plavix, beta-ernesto, statin, PACO inhibitor and calcium channel ernesto. He will follow up with cardiology and CT surgery. Acute neurological deficit with dysarthria, difficulty pronouncing words, left facial droop Patient has undergone follow-up CT of the brain which does show extensive low density in the cerebral white matter concerning for demyelinization or small vessel ischemic change; Several lacunar infarcts, possible small vessel ischemic change. Unable do MRIs due to body habitus and claustrophobia. Carotid ultrasound was normal. Echocardiogram had technical difficulty; But ejection fraction 55-60%; mild to moderate atrial valve regurgitation. EEG: Showed normal EEG. Neurology was following and recommended continuation of aspirin/ Plavix and stopping aspirin in 3 months. He worked with PT, OT and ST. He will follow up with neurology as an outpt. Hypertensive emergency Status post use of Cardene for blood pressure improvement. Improved with amlodipine 5 mg twice daily, lisinopril 20 mg twice daily, increased to 20 mg twice daily, labetalol 100 mg twice daily, and hydralazine 100 mg q8h. He received clonidine and labetalol as needed. Pt Condition on Discharge: Guarded Discharge Disposition: Discharge Home Discharge Time: > 30 minutes Discharge Instructions DIET: Follow Instructions for: Heart Healthy Diet Follow up Referrals: Cardiology - 1 Week with Carolyne Walters MD Cardiology, Interventional - 1 Week with Wu Ortiz MD Neurology - 2 Weeks with Izaiah Conde MD PCP Follow-up - 1 Week New Medications: Amlodipine (Norvasc) 5 Mg Tab 5 MG PO BID for Blood Pressure Management, #60 TAB Aspirin (Tgt Aspirin) 81 Mg Chw 81 MG PO DAILY for Heart, #30 EA Stop after three months Atorvastatin (Atorvastatin) 40 Mg Tab 40 MG PO HS for Cholesterol Management, #30 TAB Clopidogrel (Plavix) 75 Mg Tab 75 MG PO DAILY for Heart, #30 TAB Hydralazine (Hydralazine) 100 Mg Tab 100 MG PO Q8H for Blood Pressure Management, #90 TAB Take with meals Labetalol (Labetalol) 300 Mg Tab 300 MG PO Q12HR for Blood Pressure Management, #60 TAB Lisinopril (Lisinopril) 10 Mg Tab 20 MG PO BID for Blood Pressure Management, #60 TAB Spironolactone (Aldactone) 25 Mg Tab 25 MG PO DAILY for Blood Pressure Management, #30 TAB Nehemias Pemberton DO Oct 09, 2017 11:54
--- NOTE | 2017-10-09 11:55 | PD.CAR.PN ---
CVT Progress Note Subjective/Hospital Course: Patient leaving AMA. I strongly advised him to reconsider this decision as he is at risk of having a major cardiac event. He is determined to leave. Objective: Vital Signs Date Time Temp Pulse Resp B/P (MAP) Pulse Ox O2 Delivery O2 Flow Rate FiO2 10/09/17 09:53 96 21 10/09/17 08:00 58 10/09/17 08:00 98.1 62 18 176/90 (118) 96 10/09/17 06:00 55 10/09/17 05:00 56 10/09/17 04:00 60 10/09/17 03:17 98.2 60 18 136/80 (98) 98 10/09/17 03:00 63 10/09/17 02:00 55 10/09/17 01:00 55 10/09/17 00:00 60 10/08/17 23:35 98.4 61 18 159/91 (113) 97 10/08/17 23:00 57 10/08/17 22:00 78 10/08/17 21:00 74 10/08/17 20:00 97.7 63 16 152/90 (110) 96 10/08/17 20:00 64 10/08/17 19:00 64 10/08/17 18:00 69 10/08/17 17:00 67 10/08/17 16:00 74 10/08/17 16:00 98.6 65 18 168/94 (118) 96 10/08/17 15:00 66 10/08/17 14:00 64 10/08/17 13:00 70 10/08/17 12:00 98.1 70 18 137/66 (89) 94 10/08/17 12:00 68 Labs: Laboratory Tests Test 10/09/17 03:20 Activated Partial Thromboplast Time 32.9 SEC (24.3-30.1) Result Diagram: 10/08/17 1242 10/07/17 0455 Plan: Reconsult of this patient changes his decision to leave or presents again with symptoms. Carolyne Walters MD Oct 09, 2017 11:55
== END 2017-10-09 12:45 | disposition left against medical advice (07) | DRG 281 ==
LOC: PHED 11:10 → PHEDA 13:19 → PHICU 15:11 → HCIS 10-07 23:13
PROVIDERS: ADMIT Hospitalist; ATTEND Hospitalist
PROC: B312YZZ Fluoroscopy of Left Subclavian Artery using Other Contrast (ICD-10-PCS; 2017-10-08)
PROC: B31NZZZ Fluoroscopy of Other Upper Arteries (ICD-10-PCS; 2017-10-08)
PROC: B2111ZZ Fluoroscopy of Multiple Coronary Arteries using Low Osmolar Contrast (ICD-10-PCS; principal; 2017-10-08 11:00)
DX: I21.4 Non-ST elevation (NSTEMI) myocardial infarction (principal); I16.1 Hypertensive emergency; Z68.42 Body mass index [BMI] 45.0-49.9, adult; G45.9 Transient cerebral ischemic attack, unspecified; E66.01 Morbid (severe) obesity due to excess calories; I08.1 Rheumatic disorders of both mitral and tricuspid valves; I45.2 Bifascicular block; I10 Essential (primary) hypertension; R00.0 Tachycardia, unspecified; J45.20 Mild intermittent asthma, uncomplicated; R47.1 Dysarthria and anarthria; R29.810 Facial weakness; K21.9 Gastro-esophageal reflux disease without esophagitis; I25.10 Atherosclerotic heart disease of native coronary artery without angina pectoris; E87.6 Hypokalemia; I77.6 Arteritis, unspecified; E78.5 Hyperlipidemia, unspecified; R73.9 Hyperglycemia, unspecified; G47.33 Obstructive sleep apnea (adult) (pediatric); G43.809 Other migraine, not intractable, without status migrainosus; H53.459 Other localized visual field defect, unspecified eye; F40.240 Claustrophobia; Z82.49 Family history of ischemic heart disease and other diseases of the circulatory system; Z86.73 Personal history of transient ischemic attack (TIA), and cerebral infarction without residual deficits; Z91.14 Patient's other noncompliance with medication regimen
CPT/HCPCS: 70450; 70496; 70498; 71045; 76937; 78452; 80048; 80053; 80061; 82140; 82150; 82533; 82550; 82948; 83036; 83605; 83690; 83735; 84100; 84132; 84439; 84443; 84481; 84484; 85025; 85027; 85610; 85652; 85730; 86021; 86038; 86140; 86430; 87641; 93005; 93017; 93306; 93454; 93880; 94150; 94640; 94664; 95819; 96365; 99152; 99153; A9502; C1769; C1893; J0360; J1644; J2250; J2785; J3010; J3480; J7030; J7050; Q9967